=== PATIENT | female | born 1965 | race Caucasian/White ===

== ENCOUNTER 2022-03-15 11:04 | Outpatient (REF) | payer BC, SELFPAY ==
--- NOTE | 2022-03-15 09:45 | PAPFT_PTH ---
PATIENT: Kaia Isaac [id number] AGE/SX: 56/F ROOM: RE03/15/[address]: Marlyn Sterling : 1965 BED: DIS: 03/15/2022 SPEC #: [id number] RECD: 03/18/22 12:27 STATUS: GARCIA MOLINA #: [id number] GLENNA: 03/15/22 09:[address]: Marlyn Sterling DEPT: [facility] Cytology RECD BY: Virginia Coreas ENTERED: 03/18/22 12:28 SP TYPE: PAPFT OTHR DR: Milla London Tissues: 1 - CX/ENDOCX FOR PAP SMEARS Procedures: PAP THIN PREP/UVM Screening HPV DNA PROBE Comments: [id number]
[2022-03-15 19:32] LABS: ALT 38 U/L (14-59); AST 25 U/L (15-37); Albumin 3.8 g/dL (3.4-5.0); Alkaline Phosphatase 101 U/L (46-116); Anion Gap 5.8 mmol/L (3-11); BUN 14 mg/dL (7-18); Bilirubin, Total 0.4 mg/dL (0.2-1.0); CO2 31.2 mmol/L (21.0-32.0); CREATININE 0.6 mg/dL (0.55-1.02); Calcium 8.6 mg/dL (8.5-10.1); Chloride 106 mmol/L (98-107); Cholesterol 119 mg/dL (<200); Glucose 88 mg/dL (74-106); HDL Cholesterol 88 mg/dL (40-60); Sodium 143 mmol/L (136-145); Total Protein 6.5 g/dL (6.4-8.2)
[2022-03-15 19:46] LABS: Triglyceride < 25 mg/dL (<150)
== END 2022-03-15 11:05 | disposition home or self-care (01) ==
LOC: NCHCN 11:04
PROVIDERS: PCP Family Medicine; Visit Provider Physician Assistant
DX: Z00.00 Encounter for general adult medical examination without abnormal findings (principal); Z13.1 Encounter for screening for diabetes mellitus; Z13.220 Encounter for screening for lipoid disorders; Z12.4 Encounter for screening for malignant neoplasm of cervix; Z11.51 Encounter for screening for human papillomavirus (HPV)
CPT/HCPCS: 80053; 80061; 88142; 87624

== ENCOUNTER → 2022-05-08 02:04 | Outpatient (CLI) | payer BC, SELFPAY ==
--- NOTE | 2022-05-08 17:00 | DI.MAMMO_ITS ---
Exam(s) MAMMO SCREENING EXAM: MAMMO SCREENING CLINICAL HISTORY: SCREENING, Z12.39; FAM H/O BREAST CA IN MOTHER; H/O DENSE BREASTS. TECHNIQUE: Bilateral full field digital CC and MLO mammographic images were obtained with 3D tomosyn thesis and utilizing computer aided detection (CAD). COMPARISON: Prior outside mammograms were reviewed, the most recent being November 2020. FINDINGS: Fibroglandular tissue pattern is again noted be dense, this somewhat decreasing the sensitivity of th e mammogram for finding in underlying lesions. Multiple benign-appearing microcalcifications noted bilaterally. There are no new spiculated masses nor malignant appearing microcalcification groups. There is no significant architectural distortion nor skin thickening-retraction. IMPRESSION: Dense bilateral fibroglandular tissue. No obvious radiographic evidence malignancy. BI-RADS Category 2 - Benign Findings Breast Density - Category C - Heterogeneously dense Breast density Category C or D implies that the patient has dense breast tissue. Dense breast tissue can make it harder to find cancer on a mammogram. Dense breast tissue is also associated with an incr eased risk of breast cancer. This information about the result of the mammogram report was provided to the patient to raise their awareness. Use this report when you speak with the patient about their risks for breast cancer, which includes their family history. At that time, you may recommend additional screening tests (Ultrasoun d or MRI) as these tests may add significant information. A negative radiographic report should not delay biopsy if a dominant or clinically suspicious mass is present. Up to ten percent of cancers are not identified on mammography. A negative report may reinforce clinical impression. Adenosis and dense breasts may obscure an underlying neoplasm. False positive reports average 6 to 10%. Patient will receive a letter notifying them of these results.
== END ==
PROVIDERS: PCP Family Medicine; Visit Provider Physician Assistant
DX: Z12.31 Encounter for screening mammogram for malignant neoplasm of breast (principal); Z80.3 Family history of malignant neoplasm of breast; R92.0 Mammographic microcalcification found on diagnostic imaging of breast
CPT/HCPCS: 77063; 77067

== ENCOUNTER 2023-05-23 11:15 | Outpatient (REF) | payer BC, SELFPAY ==
--- OUTSIDE RECORDS SUMMARY | 2023-05-23 11:30 | XMS_ITS | Continuity of Care Document ---
Author Name [facility] Address [address] [place] [address] Organization [facility] Address [address] [place] [address] Care Team Providers Care Line Leader Name Role Phone Milla London Primary Care Physician [phone] Estephania Gallo Attending Physician [phone] Allergies, Adverse Reactions, Alerts Allergen Type Severity Reaction Last Updated Verified Status erythromycin base Allergy rash April 28, 2017 Y Active Medications Active Medications Medication Start Date Status [place] April 28, 2017 Active Problem List No problem information available. Procedures Procedure Date Status DIAGNOSTIC COLONOSCOPY April 28, 2017 active Digital Mammo Bilat Screening April 08, 2017 co mpleted Relevant Diagnostic Tests and/or Laboratory Data Laboratory Results Test Date/Time Result Interp. Ref. Range Result Co mment White Blood Count January 23, 2017 12:00pm 3.74 1000/mm3 Low 4.8-10.8 Red Blood Count January 23, 2017 12:00pm 4.57 M/mm3 4.20-5.40 Hemoglobin January 23, 2017 12:00pm 13.9 g/dL 12.0-16.0 Hematocrit January 23, 2017 12:00pm 42.7 % 37-47 Mean Corpuscular Volume January 23, 2017 12:00pm 93.4 fL 81.0-99.0 Mean Corpuscular Hemoglobin January 23, 2017 12:00pm 30.4 pg 27-31 Mean Corpuscular Hemoglobin Concent January 23, 2017 12:00pm 32.6 g/dL Low 33-37 Red Cell Distribution Width January 23, 2017 12:00pm 12.8 % 11.5-14.5 Platelet Count January 23, 2017 12:00pm 241 1000/mm3 140-440 Mean Platelet Volume January 23, 2017 12:00pm 10.5 fL High 7.4-10.4 Sodium Level January 23, 2017 12:00pm 143 mmol/L 137-145 Potassium Level January 23, 2017 12:00pm 4.1 mmol/L 3.6-5.0 Chloride Level January 23, 2017 12:00pm 104 mmol/L 98-107 Carbon Dioxide Level January 23, 2017 12:00pm 28 mmol/L 22-30 Anion Gap January 23, 2017 12:00pm 11 7-16 Blood Urea Nitrogen January 23, 2017 12:00pm 10 mg/dL 7-17 Creatinine January 23, 2017 12:00pm 0.6 mg/dL 0.52-1.04 Glomerular Filtration Rate Calc January 23, 2017 12:00pm > 60 mL/min Glucose Level January 23, 2017 12:00pm 83 mg/dL 70-100 Calcium Level January 23, 2017 12:00pm 8.8 mg/dL 8.4-10.2 Calcium Adjusted for Albumin January 23, 2017 12:00pm 8.9 mg/dL 8.4-10.2 Total Bilirubin January 23, 2017 12:00pm 0.6 mg/dL 0.2-1.3 Aspartate Amino Transf (AST/SGOT) January 23, 2017 12:00pm 23 U/L 14-36 Alanine Aminotransferase (ALT/SGPT) January 23, 2017 12:00pm 31 U/L 9-52 Total Protein January 23, 2017 12:00pm 7.1 g/dL 6.3-8.2 Albumin January 23, 2017 12:00pm 4.2 g/dL 3.5-5.0 Cholesterol Level January 23, 2017 12:00pm 100 mg/dL 59-199 HDL Cholesterol January 23, 2017 12:00pm 58 mg/dL 40-60 The National Cholesterol Education Program (NCEP) has set the following guidelines (reference values) for cholesterol, HDL: Low HDL: <40 mg/dL Normal: 40-60 mg/dL Desirable: >60 mg/dL LDL Cholesterol January 23, 2017 12:00pm 27.4 mg/dL 0-129 VLDL Cholesterol January 23, 2017 12:00pm 14.6 mg/dL 0-32 Cholesterol/HDL Ratio January 23, 2017 12:00pm 1.72 0-3.9 Triglycerides Level January 23, 2017 12:00pm 73 mg/dL 0-149 Alkaline Phosphatase January 23, 2017 12:00pm 74 U/L 38-126 Hepatitis C Antibody January 23, 2017 12:00pm Negative Reference Range: Negative Test Performed by: [place] [address] Management Aide: Glenn Rosario MD , Ph D Advance Directives Advance Directive Response Recorded Date/ Time Do we have a copy on file here at [facility]? No April 08, 2017 9:35am Does patient have an Advanced Directive? No September 25, 2011 9:30am Pt has a Living Will? No September 042010 9:30am Pt has a Power of Induction Coordination Engineer? No Curt [email or web address] 9:30am Hospital Discharge Instructions No known hospital discharge instructions. Hospital Discharge Medications Medication Dose Units Route Sig Qty Days Order Date Status Ins tructions [place] April 28, 2017 Active Encounters Encounter Facility Location Admit/Visit Date Discharge/Departure Date Attending Provider Departed Referred [facility] August 01, 2017 3:39pm August 01, 2017 3:40pm Estephania Gallo Departed Surgical Day Care [facility] Surgical Services April 28, 2017 9:00am April 28, 2017 12:14pm Karely Davis Departed Clinical [facility] DI Walk In [place] April 08, 2017 9:32am April 08, 2017 9:33am Karen Barreto Departed Referred [facility] January 23, 2017 2:25pm January 23, 2017 2:26pm Karen Barreto Registered Referred [facility] Pathology December 17, 2016 7:45pm Donavan Garcia Functional Status No known functional status. Immunizations No known immunizations. Payers Payer Name Policy Type Covered Alliance Party Covered Alliance Party Id Relationship Subscriber Subscriber Id [facility] Commercial CARMELA GENAO [id number] Self/Same as Patient CARMELA GENAO [id number] [facility] Commercial CARMELA GENAO [id number] Self/Same as Patient CARMELA GENAO [id number] SELF PAY Personal Plan of Care No Known Plan of Care Information Social History Query Response Start Date Stop Date Smoking Status Never smoker Vital Signs Vital Reading Result Reference Range Collection Date/Time Height 5 ft 4 in April 28, 2017 1 1:04am Weight 48.534 kg April 28, 2017 1 1:04am Temperature 98.0 F 97.6 F-99.6 F April 28, 2017 11:04am Pulse 59 BPM 60-100 April 28, 2017 1 2:12pm Respiration 16 RPM -April 28, 2017 1 2:12pm Pulse Oximetry 95 % 95-100 April 28, 2017 12:12pm Blood Pressure Systolic 121 100-140 April 28, 2017 12:12pm Blood Pressure Diastolic 88 50-85 Sunday 2016 12:12pm Body Mass Index 18.3 April 28 7 11:04am
--- OUTSIDE RECORDS SUMMARY | 2023-05-23 11:30 | XMS_ITS | Continuity of Care Document ---
Author Name [facility] Address [address] [place] [address] Organization [facility] Address [address] [place] [address] Care Team Providers Care Rubber Goods Assembler Name Role Phone Karely Davis Attending Physician Milla London Primary Care Physician Allergies, Adverse Reactions, Alerts Allergen Type Severity Reaction Last Updated Verified Status erythromycin base Allergy rash April 28, 2017 Y Active Medications Active Medications Medication Start Date Status [place] April 28, 2017 Active Problem List No problem information available. Procedures Procedure Date Status Provider(s) Colonoscopy in OPD - screen (Not Applicable) April 28, 2017 completed Karely Davis Digital Mammo Bilat Screening April 08, 2017 completed Relevant Diagnostic Tests and/or Laboratory Data Laboratory [...] Reference Range: Negative Test Performed by: [place] [address] Assistant To The Ceo: Glenn Rosario MD , Ph D Advance Directives Advance Directive Response Recorded Date/ Time Do we have a copy on file here at [facility]? No April 08, 2017 9:35am Does patient have an Advanced Directive? No September 25, 2011 9:30am Pt has a Living Will? No September 042010 9:30am Pt has a Power of Denture Contour Wire Specialist? No Curt [email or web address] 9:30am Chief Complaint and Reason for Visit Encounter Admit Date Chief Complaint Reason for V isit Departed Surgical Day Care April 28, 2017 9:00am Encounter for screening for malignant neoplasm of Hospital Discharge Instructions No known hospital discharge instructions. Hospital Discharge Medications Medication Dose Units Route Sig Qty Days Order Date Status Ins tructions [place] April 28, 2017 Active Encounters Encounter Facility Location Admit/Visit Date Discharge/Departure Date Attending Provider Departed Surgical Day Care [facility] Surgical Services April 28, 2017 9:00am April 28, 2017 12:14pm Karely Davis Departed Clinical [facility] DI Walk In [place] April 08, 2017 9:32am April 08, 2017 9:33am Karen Barreto Departed Referred [facility] January 23, 2017 2:25pm January 23, 2017 2:26pm Karen Barreto Registered Referred [facility] Pathology December 17, 2016 7:45pm Donavan Garcia Functional Status No known functional status. Immunizations No known immunizations. Payers Payer Name Policy Type Covered Republican Covered Republican Id Relationship Subscriber Subscriber Id [facility] OUT [facility] Commercial CARMELA GENAO [id number] 71 Self/Same as Patient CARMELA GENAO [id number] [facility] CARMELA GENAO [id number] Self/Same as Patient CARMELA GENAO [id number] SELF PAY Personal Plan of Care No [...] 2017 12:12pm Blood Pressure Diastolic 88 50-85 Apr 12:12pm Body Mass Index 18.3 April 28 7 11:04am
--- OUTSIDE RECORDS SUMMARY | 2023-05-23 11:30 | XMS_ITS | Continuity of Care Document ---
Author Name [facility] Address [address] [place] [address] Organization [facility] Address [address] [place] [address] Care Team Providers Care Sql Programmer Analyst Name Role Phone Milla London Primary Care Physician Estephania Gallo Attending Physician Allergies, Adverse Reactions, Alerts Allergen Type Severity Reaction Last Updated Verified Status erythromycin base Allergy rash April 28, 2017 Y Active Medications Active Medications Medication Start Date Status [place] April 28, 2017 Active Problem List No [...] Reference Range: Negative Test Performed by: [place] [address] Special Agent Fbi: Glenn Rosario MD , Ph D Advance Directives Advance Directive Response Recorded Date/ Time Do we have a copy on file here at [facility]? No April 08, 2017 9:35am Does patient have an Advanced Directive? No September 25, 2011 9:30am Pt has a Living Will? No September 042010 9:30am Pt has a Power of Director Fundraising? No Curt [email or web address] 9:30am Hospital Discharge Instructions No known hospital discharge instructions. Hospital Discharge Medications Medication Dose Units Route Sig Qty Days Order Date Status Ins tructions [place] April 28, 2017 Active Encounters Encounter Facility Location Admit/Visit Date Discharge/Departure Date Attending Provider Departed Referred [facility] August 01, 2017 3:39pm August 01, 2017 3:40pm Estephania Gallo Departed Surgical Day Care [facility] Surgical Services April 28, 2017 9:00am April 28, 2017 12:14pm Karely Davis Departed Clinical [facility] DI Walk In [place] April 08, 2017 9:32am April 08, 2017 9:33am Karen Barreto Departed Referred [facility] January 23, 2017 2:25pm January 23, 2017 2:26pm Karen Barreto Registered Referred [facility] Pathology December 17, 2016 7:45pm Donavan Garcia Functional Status No known functional status. Immunizations No known immunizations. Payers Payer Name Policy Type Covered Republican Covered Republican Id Relationship Subscriber Subscriber Id [facility] OUT [facility] Commercial CARMELA GENAO [id number] 71 Self/Same as Patient CARMELA GENAO [id number] [facility] Commercial CARMELA GENAO [id number] Self/Same as Patient CARMELA GENAO [id number] SELF PAY Personal Plan of Care No [...]
--- OUTSIDE RECORDS SUMMARY | 2023-05-23 11:30 | XMS_ITS | Continuity of Care Document ---
Author Name [facility] Address [address] [place] [address] Organization [facility] Address [address] [place] [address] Care Team Providers Care Electrologist Name Role Phone Karen Barreto Primary Care Physician [phone] Karen Barreto Attending Physician Allergies, Adverse Reactions, Alerts No allergy information available. Medications No medication information available. Problem List No problem information available. Procedures No known history of procedures. Relevant Diagnostic Tests and/or Laboratory Data Laboratory [...] Reference Range: Negative Test Performed by: [place] [address] [employer]otions Firm Accounts Manager: Glenn Rosario MD , Ph D Advance Directives Advance Directive Response Recorded Date/ Time Does patient have an Advanced Directive? No September 25, 2011 9:30am Pt has a Living Will? No September 042010 9:30am Pt has a Power of Children'S Tutor Nursery? No Curt [email or web address] 9:30am Hospital Discharge Instructions No known hospital discharge instructions. Encounters Encounter Facility Location Admit/Visit Date Discharge/Departure Date Attending Provider Departed Referred [facility] January 23, 2017 2:25pm January 23, 2017 2:26pm Karen Barreto Registered Referred [facility] Pathology December 17, 2016 7:45pm Donavan Garcia Functional Status No known functional status. Immunizations No known immunizations. Payers Payer Name Policy Type Covered Alliance Party Covered Alliance Party Id Relationship Subscriber Subscriber Id [place] [employer] OUT [facility] [employer] [place] [employer] CARMELA GENAO [id number] Self/Same as Patient CARMELA GENAO [id number] SELF PAY Personal Plan of Care No Known Plan of Care Information Social History No known social history. Vital Signs No known vital signs results.
--- OUTSIDE RECORDS SUMMARY | 2023-05-23 11:30 | XMS_ITS | Continuity of Care Document ---
Author Name Unknown Address [address] [place] [address] Phone [facility] Address [address] [place] [address] Phone Care Team Providers Care Room Service Bellhop Name Role Phone Lavelle Gregory Primary Care Provider [phone] Lavelle Gregory Attending Provider [phone] Allergies, Adverse Reactions, Alerts Allergen Type Severity Reaction Last Updated Verified Status erythromycin base Adverse Reaction Unknown unknown N ovember 2019 1:07pm Yes Active Medications Medication Status Dose Units Route Directions Qty Days St art Date End Date Instructions Clobetasol Active 1 APPLIC TOP TWICE A DAY 2019 8:24am for two weeks Clobetasol Disconti nued 1 APPLIC TOP TWICE A DAY April 27, 2019 4:27pm Octobe r 2018 9:16am for two weeks Clobetasol Disconti nued 1 APPLIC TOP TWICE A DAY August 11, 2019 9:13am April 04, 2020 8:25am for two weeks Shingrix gE Antigen Component (varicella-zo ster gE vac,2 of 2) 50 mcg Disconti nued 50 MCG IM ONCE August 11, 2019 8:39am Octobe r 2018 10:40a m Shingrix Adjuvant Component-PF (adjuvant AS01B (PF)vial 1 of 2) Disconti nued 0.5 ML IM ONCE 0.5 August 11, 2019 8:39am Octobe r 2018 10:40a m Cholecalcifer ol (Vitamin D3) Active 50 MCG PO DAILY 2019 1:10pm Problems Active Problems Medical Problem Onset Date Status Urinary incontinence July 07, 2018 Active Lichen sclerosus et atrophicus August 01 017 Active Inactive/Resolved Problems Medical Problem Onset Date Status Right lower quadrant abdominal pain January 24, 2015 Resolved Excessive bleeding in premenopausal period Novem 2014 Resolved Uterine leiomyoma October 18, 2014 Resolved Cyst of ovary October 18, 2014 Resolved Procedures Procedure Date Performed Status Mike Mammo Bilat Scrn Panel October 06, 2019 8 :00am completed Relevant Diagnostic Tests and/or Laboratory Data Laboratory Results Test Date/Time Result Interpretation Reference Range Result Comment Performing Site Sodium Level September 12, 2020 1:48pm 142 mmol/L 137-145 MAIN LAB, [address] [place] [address] Potassium Level September 12, 2020 1:48pm 4.1 mmol/L 3.6-5.0 MAIN LAB, [address] [place] [address] 80067 Chloride Level September 12, 2020 1:48pm 105 mmol/L 98-107 MAIN LAB, [address] [place] [address] 49715 Carbon Dioxide Level September 12, 2020 1:48pm 31 mmol/L 22-30 MAIN LAB, [address] [place] [address] 19696 Anion Gap September 12, 2020 1:48pm 6 7-16 MAIN LAB, [address] [place] [address] 25782 Blood Urea Nitrogen September 12, 2020 1:48pm 16 mg/dL 7-17 MAIN LAB, [address] [place] [address] 77011 Creatinine September 12, 2020 1:48pm 0.60 mg/dL 0.52-1.04 MAIN LAB, [address] [place] [address] 55182 Glomerular Filtration Rate Calc September 12, 2020 1:48pm > 60 mL/min >60.0 MAIN LAB, [address] [place] [address] 31059 Glucose Level September 12, 2020 1:48pm 79 mg/dL 70-100 MAIN LAB, [address] [place] [address] 76149 Calcium Level September 12, 2020 1:48pm 9.4 mg/dL 8.4-10.2 MAIN LAB, [address] [place] [address] 58416 Calcium Adjusted for Albumin September 12, 2020 1:48pm 9.3 mg/dL 8.4-10.2 MAIN LAB, [address] [place] [address] 52185 Total Bilirubin September 12, 2020 1:48pm 0.5 mg/dL 0.2-1.3 MAIN LAB, [address] [place] [address] 66859 Aspartate Amino Transf (AST/SGOT) September 12, 2020 1:48pm 28 U/L 14-36 MAIN LAB, [address] [place] [address] 84688 Alanine Aminotransferase (ALT/SGPT) September 12, 2020 1:48pm 19 U/L <35 As of 03/03/20, the Reference Range for ALT/SGPT for adult patients has been updated. The Reference Range for ALT/SGPT has not been established for patients <18 years of age. MAIN LAB, [address] [place] [address] 36611 Total Protein September 12, 2020 1:48pm 6.9 g/dL 6.3-8.2 MAIN LAB, [address] [place] [address] 99482 Albumin September 12, 2020 1:48pm 4.4 g/dL 3.5-5.0 MAIN LAB, [address] [place] [address] 06497 Cholesterol Level September 12, 2020 1:48pm 108 mg/dL 59-199 MAIN LAB, [address] [place] [address] 02402 HDL Cholesterol September 12, 2020 1:48pm 78 mg/dL 40-60 The National Cholesterol Education Program (NCEP) has set the following guidelines (reference values) for cholesterol, HDL:Low HDL: <40 mg/dLNormal: 40-60 mg/dLDesirab le: >60 mg/dL MAIN LAB, [address] [place] [address] 69263 LDL Cholesterol September 12, 2020 1:48pm 7.4 mg/dL 0-129 MAIN LAB, [address] [place] [address] 36583 VLDL Cholesterol September 12, 2020 1:48pm 22.6 mg/dL 0-32 MAIN LAB, [address] [place] [address] [place] [address] Cholesterol/HDL Ratio September 12, 2020 1:48pm 1.38 0-3.9 MAIN LAB, [address] [facility] [address] Triglycerides Level September 12, 2020 1:48pm 113 mg/dL 0-149 MAIN LAB, [address] [place] [address] 49845 Alkaline Phosphatase September 12, 2020 1:48pm 93 U/L 38-126 MAIN LAB, [address] [place] [address] Diagnostic Imaging Reports Report Dictated Date/Time Dictated By Status Radiology Report October 06, 2019 8:29am Amie Owens MD completed MAMMOGRAPHY REPORT PATIENT NAME: CARMELA GENAO [id number] DATE OF : 1965 ATTENDING/ER PHYSICIAN: Lavelle Gregory MD ER/ATTENDING PHYSICIAN: PRIMARY CARE PHYS: Lavelle Gregory MD ADMITTING PHYSICIAN: CONSULTING PHYSICIAN: PROCEDURE DATE: 10/06/19 REPORT STATUS: Signed DICTATING PHYSICIAN: Amie Owens MD REASON FOR EXAM: screening breast cancer. avg risk PROCEDURE: Mike Mammo Bilat Scrn Panel CLINICAL HISTORY: 54 years-old woman comes in for her annual screening exam. COMPARISON: 2017, 2016. TECHNIQUE: Digital conventional 2-D and 3-D tomosynthesis views were obtained. The findings were confirmed with computer-aided detection (CAD). FINDINGS: The breast tissue is heterogeneously dense which may lower the sensitivity of mammography. Benign appearing calcifications are present. There are no suspicious microcalcifications in either breast. There are no suspicious masses in either breast. CONCLUSION: 1. No suspicious findings. In the absence of new clinical symptoms, screening mammography is recommended in one year. BI-RADS 2. Benign finding(s). Patients with a negative mammogram will be sent a letter with results. If further evaluation is required, the radiology department will notify the patient. If a biopsy is recommended, the patient will be informed and the radiology department will inform the referring provider's office. If a 6 months follow-up is recommended, the patient will be informed -- additional order will be required from the provider's office. The frequency of follow-up appointments was discussed with a patient by the mri special procedures technologist as part of the exam. The patient will receive a reminder phone call one week prior to her next screening appointment. In accordance with [place] Senate Bill 157 the following statement applies: Your mammogram indicates that you have dense breast tissue. Dense breast tissue is a normal finding that is present in about 40 percent of women. Dense breast tissue can make it more difficult to detect cancer on a mammogram and may be associated with a slightly increased risk for breast cancer. This information is provided to raise your awareness of the impact of breast density on cancer detection and to encourage you to discuss this issue, as well as other breast cancer risk factors, with your health care provider as you decide together which screening options may be right for you. dd: 10/06/19828 <Electronically signed by Amie Owens MD in OV> 10/06/19829 Advance Directives Advance Directive Response Recorded Date/ Time Does patient have an Advanced Directive? No September 25, 2011 9:30am Do we have a copy on file here at [facility]? No April 08, 2017 8:35am Pt has a Living Will? No September 042010 9:30am Do we have a copy on file here at [facility]? No April 08, 2017 8:35am Pt has a Power of Certified Professional Coder? No Curt matias 2010 9:30am Do we have a copy on file here at [facility]? No April 08, 2017 8:35am Chief Complaint and Reason for Visit Chief Complaint Essential hypertensi on Screening for breast cancer [employer] annual exam Physical/BUMPED FROM 08/16 Encounters Encounter Location(s) Arrival/Admit Date Discharge/Depart Date Provider(s) Departed Clinical [facility] October 06, 2019 7:45am October 06, 2019 7:46am Lavelle Gregory MD Departed Physician[facility] October 19, 2019 10:16am October 19, 2019 10:41am Donavan Garcia MD Departed Physician[facility] October 20, 2019 12:00am October 20, 2019 12:00am Conversion Medent Departed Physician[facility]Prov [facility] September 12, 2020 12:46pm September 12, 2020 1:52pm Lavelle Gregory MD Departed Referred [facility] September 12, 2020 1:34pm September 12, 2020 1:35pm Lavelle Gregory MD Assessments No Assessments Information Available Family History Relationship Condition Age at Onset Recorded Date/T nelli Parent Dementia Unknown Cerebrovascular accident (CVA) Unknown Not Specified Malignant neoplasm of uterus Unknown Peripheral vascular disease Unknown Parent Arthritis Unknown Osteoporosis Unknown Malignant neoplasm of breast 78 Functional Status Observation Response Date Recorded Ambulation Ability Independent September 1:14pm Ambulation Ability Independent August 11, 2019 9:20am Goals Goals may be documented in an alternate section. Immunizations Immunization Event Date Not Given Reason Dose Number Wire Dropper Lot Number Vaccine Information Statement (VIS) Detail Influenza Split Virus 3YR Older October 06, 2007 Tdap October 29, 2013 Zoster (shingles) Recomb Vac (Shingrix) July 07, 2018 Zoster (shingles) Recomb Vac (Shingrix) August 11, 2019 [id number] Mental Status No Mental Status Information Available Medical Equipment No Medical Equipment Information available Insurance Providers Guarantor CARMELA GENAO Address [address] [place] [id number] Contact Info. Home Phone: Payer Policy Id Coverage Id Subscriber's Name Subscriber Id Effective Date Expiration Date [employer] [id number] CARMELA GENAO [id number] [facility] OUT OF STATE [id number] 1 CARMELA GENAO [id number] [facility] [id number] CARMELA GENAO [id number] 2014 SELF PAY Self N/A Plan of Treatment Very very healthy 55-year-old female here for annual physical exam. No health concerns or questions. I did review her Pap from December 2016 which does not appear to have cotesting but I am unable to log into the [employer] system to verify. Regardless, she will follow-up with [facility]. Normal Manager Er exam. Follow for routine care. Future Tests Future scheduled test information is unavailable Pending Tests Pending diagnostic test information is unavailable Future Visits Future appointment information is unavailable Referrals to Other Providers Referral information is unavailable Future Procedures Future procedure information is unavailable Future Medications Future medication information is unavailable Patient Instructions Patient instructions are unavailable Social History Smoking Status Status Date of Observation Never smoked tobacco (finding) September 12, 2020 1:19pm Observation Status Observation Response Date of Response Alcohol Use No April 28, 2017 9:05am Substance/Street Drug Use No April 042016 9:05am Substance Use Treatment No April 9:05am substance use type does not use September 1:14pm Smoking Status Never smoker September 12 1:19pm Assigned Sex Female Vital Signs Vital Reading Result Reference Range Collection Date/Time Height 64 [in_i] October 19, 2019 10:21am Weight 48.30 kg October 19, 2019 10:21am Heart Rate 64 /min 60-100 October 19, 2019 10:21am Respiratory rate 16 /min 12-24 October 192018 10:21am BP Systolic 130 mm[Hg] 100-140 October 19, 2019 10:21am BP Diastolic 74 mm[Hg] 50-85 October 19, 2019 10:21am BMI (Body Mass Index) 18.3 kg/m2 [facility] 2018 10:21am Height 64 [in_i] September 12, 2020 1:03pm Weight 46.26 kg September 12, 2020 1:03pm Body Temperature 98.9 [degF] 97.6-99.6 September 122019 1:03pm Heart Rate 68 /min 60-100 September 12, 2020 1:03pm Respiratory rate 16 /min 12-24 September 122019 1:03pm BP Systolic 126 mm[Hg] 100-140 September 12, 2020 1:03pm BP Diastolic 78 mm[Hg] 50-85 September 12, 2020 1:03pm BMI (Body Mass Index) 17.5 kg/m2 [facility] 2019 1:03pm
--- OUTSIDE RECORDS SUMMARY | 2023-05-23 11:30 | XMS_ITS | Continuity of Care Document ---
Author Name [facility] Address [address] [place] [address] Organization [facility] Address [address] [place] [address] Care Team Providers Care Clinical Review Nurse Name Role Phone Lavelle Gregory Primary Care Physician Lavelle Gregory Attending Physician [phone] Allergies, Adverse Reactions, Alerts Allergen Type Severity Reaction Last Updated Verified Status erythromycin base Adverse Reaction Unknown unknown N ovember 2019 Y Active Medications Active Medications Medication Dose Units Route Sig Qty Start Date Status In structions Clobetasol 1 APPLIC TOPICALLY TWICE A DAY PRN For rash April 04, 2020 Active for two weeks Cholecalciferol (Vitamin D3) 50 MCG ORAL DAILY September 12, 2020 Active Discontinued Medications Medication Dose Units Route Sig Qty Start Date Discontinued Date Status Instructions Clobetasol 1 APPLIC TOPICALLY TWICE A DAY April 27, 2019 August 11, 2019 Discontin ued for two weeks Clobetasol 1 APPLIC TOPICALLY TWICE A DAY PRN August 11, 2019 April 04, 2020 Discontin ued for two weeks Shingrix gE Antigen Component (varicella- zoster gE vac,2 of 2) 50 mcg intramuscul ar suspension 50 MCG INTRAMUSC ULAR ONCE 1 August 11, 2019 August 11, 2019 Discontin ued Shingrix Adjuvant Component-P F (adjuvant AS01B (PF)vial 1 of 2) 0.5 ML INTRAMUSC ULAR ONCE 0.5 August 11, 2019 August 11, 2019 Discontin ued Problem List Active Problems Medical Problem Onset Date Status Urinary incontinence July 07, 2018 Lichen sclerosus et atrophicus August 01 7 Inactive/Resolved Problems Medical Problem Onset Date Status Right lower quadrant abdominal pain January 24 Resolved Excessive bleeding in premenopausal period Novem 2014 Resolved Uterine leiomyoma October 18, 2014 Resolved Cyst of ovary October 18, 2014 Resolved Procedures Procedure Date Status Mike Mammo Bilat Scrn Panel October 06, 2019 com pleted Relevant Diagnostic Tests and/or Laboratory Data Laboratory Results Test Date/Time Result Interp. Ref. Range Result Co mment Sodium Level September 12, 2020 1:48pm 142 mmol/L 137-145 Potassium Level September 12, 2020 1:48pm 4.1 mmol/L 3.6-5.0 Chloride Level September 12, 2020 1:48pm 105 mmol/L 98-107 Carbon Dioxide Level September 12, 2020 1:48pm 31 mmol/L High 22-30 Anion Gap September 12, 2020 1:48pm 6 Low 7-16 Blood Urea Nitrogen September 12, 2020 1:48pm 16 mg/dL 7-17 Creatinine September 12, 2020 1:48pm 0.60 mg/dL 0.52-1.04 Glomerular Filtration Rate Calc September 12, 2020 1:48pm > 60 mL/min 60.0- Glucose Level September 12, 2020 1:48pm 79 mg/dL 70-100 Calcium Level September 12, 2020 1:48pm 9.4 mg/dL 8.4-10.2 Calcium Adjusted for Albumin September 12, 2020 1:48pm 9.3 mg/dL 8.4-10.2 Total Bilirubin September 12, 2020 1:48pm 0.5 mg/dL 0.2-1.3 Aspartate Amino Transf (AST/SGOT) September 12, 2020 1:48pm 28 U/L 14-36 Alanine Aminotransferase (ALT/SGPT) September 12, 2020 1:48pm 19 U/L As of 03/03/20, th e Reference Range for ALT/SGPT for adult patients has been updated. The Reference Range for ALT/SGPT has not been established for patients <18 years of age. Total Protein September 12, 2020 1:48pm 6.9 g/dL 6.3-8.2 Albumin September 12, 2020 1:48pm 4.4 g/dL 3.5-5.0 Cholesterol Level September 12, 2020 1:48pm 108 mg/dL 59-199 HDL Cholesterol September 12, 2020 1:48pm 78 mg/dL High 40-60 The National Cholesterol Education Program (NCEP) has set the following guidelines (reference values) for cholesterol, HDL: Low HDL: <40 mg/dL Normal: 40-60 mg/dL Desirable: >60 mg/dL LDL Cholesterol September 12, 2020 1:48pm 7.4 mg/dL 0-129 VLDL Cholesterol September 12, 2020 1:48pm 22.6 mg/dL 0-32 Cholesterol/HDL Ratio September 12, 2020 1:48pm 1.38 0-3.9 Triglycerides Level September 12, 2020 1:48pm 113 mg/dL 0-149 Alkaline Phosphatase September 12, 2020 1:48pm 93 U/L 38-126 Hospital Discharge Instructions No known hospital discharge instructions. Hospital Discharge Medications Medication Dose Units Route Sig Qty Days Order Date Status Instructions Clobetasol 1 APPLIC TOPICALLY TWICE A DAY PRN For rash April 04, 2020 Active for two weeks Clobetasol 1 APPLIC TOPICALLY TWICE A DAY April 27, 2019 Discontinue d for two weeks Clobetasol 1 APPLIC TOPICALLY TWICE A DAY PRN August 11, 2019 Discontinue d for two weeks Shingrix gE Antigen Component (varicella-zost er gE vac,2 of 2) 50 mcg 50 MCG INTRAMUSCU LAR ONCE 1 August 11, 2019 Discontinue d Shingrix Adjuvant Component-PF (adjuvant AS01B (PF)vial 1 of 2) 0.5 ML INTRAMUSCU LAR ONCE 0.5 August 11, 2019 Discontinue d Cholecalciferol (Vitamin D3) 50 MCG ORAL DAILY 2019 Active Encounters Encounter Facility Location Admit/Visit Date Discharge/Departure Date Attending Provider Departed Referred [facility] September 12, 2020 1:34pm September 12, 2020 1:35pm Lavelle Gregory Departed Physician/P rovider Office Visit [facility] September 12, 2020 12:46pm September 12, 2020 1:52pm Lavelle Gregory Departed Physician/P rovider Office Visit [facility]COHOL COUNSELOR October 20, 2019 12:00am October 20, 2019 Gato Oshea Departed Physician/P rovider Office Visit [facility] DRUG AND ALCOHOL COUNSELOR October 19, 2019 10:16am October 19, 2019 10:41am Donavan Garcia Departed Clinical [facility] October 06, 2019 7:45am October 06, 2019 7:46am Lavelle Gregory Functional Status Query Response Date Recorded Comment Ambulation Ability Independent September 12, 2020 1:14 pm Immunizations Immunization Name Date Given Type Influenza Split Virus 3YR Older October 06, 2007 Historical Tdap October 29, 2013 Historical Zoster (shingles) Recomb Vac (Shingrix) 2017 Historical Zoster (shingles) Recomb Vac (Shingrix) August 11, 2019 Administered Plan of Care No Known Plan of Care Information Social History Query Response Date Recorded Comment Alcohol Use No April 28, 2017 10:05am Smoking Status Never smoker September 12, 2020 1:19pm Substance Use Treatment No April 28, 2017 10: 05am Substance/Street Drug Use No April 28, 2017 1 0:05am substance use type does not use September 12, 2020 1:14 pm Query Response Start Date Stop Date Smoking Status Never smoker Vital Signs Vital Reading Result Reference Range Collection Date/Time Height 5 ft 4 in September 12 1:03pm Weight 46.266 kg September 12 1:03pm Temperature 98.9 F 97.6 F-99.6 F September 12 020 1:03pm Pulse 68 BPM 60-100 September 12 1:03pm Respiration 16 RPM 12-September 12 1:03pm Blood Pressure Systolic 126 100-140 [facility]2019 1:03pm Blood Pressure Diastolic 78 50-85 Sep [facility]2019 1:03pm Body Mass Index 17.5 September 12, 2020 1:03pm
--- OUTSIDE RECORDS SUMMARY | 2023-05-23 11:30 | XMS_ITS | Continuity of Care Document ---
Author Name Unknown Address [address] [place] [address] Phone [facility] Address [address] [place] [address] Phone Care Team Providers Care Pan Dumper Name Role Phone Lavelle Gregory Primary Care Provider Unavaila Lavelle Phan Attending Provider Unavailable Lavelle Gregory Primary Care Provider Unavaila Lavelle Phan Attending Provider Unavailable Lavelle Gregory Primary Care Provider Unavaila Lavelle Phan Attending Provider Unavailable Allergies, Adverse Reactions, Alerts Allergen Type Severity Reaction Last Updated Verified Status erythromycin base Adverse Reaction Unknown unknown O ctober 2018 Yes Active Medications Medication Status Dose Units Route Sig Qty Days Start Date End Date Instructions Echinacea Active 800 MG ORAL THREE TIMES A DAY April 27, 2019 5:28pm Cinnamon Bark Active 500 MG ORAL DAILY April 27, 2019 5:28pm Clobetasol Active 1 APPLIC TOPICALLY TWICE A DAY August 11, 2019 10:13am for two weeks Varicella-Z dyan Ge Vac,2 Of 2 Active 50 MCG INTRAMUSCULAR ONCE 1 August 11, 2019 9:39am Adjuvant As01b (Pf)Vial 1 Of 2 Active 0.5 ML INTRAMUSCULAR ONCE 0.5 August 11, 2019 9:39am Problems Active Problems Medical Problem Onset Date [...] 2014 Resolved Procedures Procedure Date Performed Status Digital Mammo Bilat Screening September 29 8 completed Relevant Diagnostic Tests and/or Laboratory Data Diagnostic Imaging Reports Report Dictated Date/Time Dictated By Status Radiology Report September 30, 2018 9:04am Amie Owens MD completed [facility] MAMMOGRAPHY REPORT PATIENT NAME: CARMELA ISAAC [id number] DATE OF : 1965 ATTENDING/ER PHYSICIAN: Lavelle Gregory MD ER/ATTENDING PHYSICIAN: PRIMARY CARE PHYS: Lavelle Gregory MD ADMITTING PHYSICIAN: CONSULTING PHYSICIAN: PROCEDURE DATE: 09/29/18 REPORT STATUS: Signed DICTATING PHYSICIAN: Amie Owens MD REASON FOR EXAM: SCREENING PROCEDURE: Digital Mammo Bilat Screening CLINICAL HISTORY: 53-year-old woman comes in for her annual screening exam. COMPARISON: 2010 and 2016. TECHNIQUE: Digital conventional 2-D views were obtained. The findings were confirmed with computer-aided detection (CAD). FINDINGS: The breast tissue is heterogeneously dense which may lower the sensitivity of mammography. Benign appearing calcifications are present. There are no suspicious microcal cifications in either breast. There are no suspicious [...] was discussed with a patient by the computed tomography technologist as part of the exam. The patient will receive a reminder phone call one week prior to her next screening appointment. In accordance with [place] Senate Bill 157 the following statement applies: [...] options may be right for you. dd: 09/30/18903 <Electronically signed by Amie Owens MD in OV> 09/30/18904 Chief Complaint and Reason for Visit Chief Complaint MAMMO Amb Documentation BLOOD DRAW Annual Physical - Adult EKG Encounters Encounter Location(s) Arrival/Admit Date Discharge /Depart Date Provider(s) Departed Clinical [facility] September 29, 2018 5:12pm September 29, 2018 5:13pm Lavelle Gregory MD Departed Physician/Provi koki Office Visit [facility] October 06, 2018 12:00am October 06, 2018 Conversion Medent Departed Physician/Provi koki Office Visit [facility] October 20, 2018 12:00am October 20, 2018 Conversion Medent Registered Inpatient [facility] April 27, 2019 5:27pm VERENA Fatimah Penaloza Registered Clinical [facility] August 11, 2019 9:03am Lavelle Gregory MD Departed Physician/Provi koki Office Visit [facility] August 11, 2019 9:39am August 11, 2019 11:31am Lavelle Gregory MD Registered Clinical [facility] August 11, 2019 11:07am Lavelle Gregory MD Assessments No Assessments Information Available Family History Relationship Condition Age at Onset Recorded Date/T nelli Parent Dementia Unknown Cerebrovascular accident (CVA) Unknown Not Specified Malignant neoplasm of uterus Unknown Peripheral vascular disease Unknown Parent Arthritis Unknown Osteoporosis Unknown Functional Status No Functional Status information available Goals No Goals Information Available Immunizations Immunization Event Date Not Given Reason Dose Number Signal Fitter Lot Number Vaccine Information Statement (VIS) Detail Influenza Split Virus 3YR Older October 06, 2007 VIS not given Tdap October 29, 2013 VIS not given Zoster (shingles) Recomb Vac (Shingrix) July 07, 2018 VIS not given Mental Status No Mental Status Information Available Medical Equipment No Medical Equipment Information available Insurance Providers Guarantor CARMELA ISAAC Address [address] [facility] [address] Contact Info. Home Phone: Payer Policy Id Coverage Id Subscriber's Name Subscriber Id Effective Date Expiration Date [email or web address] [id number] Carmela Fulleri [id number] [email or web address] OUT OF STATE [id number] 1 Carmela Isaac [id number] [employer] [place] [id number] Carmela Isaac [id number] 2014 SELF PAY Self N/A Social History Assigned Sex Female Vital Signs Vital Reading Result Reference Range Collection Date/Time Height 64 [in_i] August 11 10:02am Weight 48.98 kg August 11 10:02am Body Temperature 98.6 [degF] 97.6-99.6 August 10:02am Heart Rate 76 /min 60-100 August 11 10:02am Respiratory rate 16 /min 12-24 August 10:02am BP Systolic 124 mm[Hg] 100-140 August 11 10:02am BP Diastolic 78 mm[Hg] 50-85 August 11 10:02am BMI (Body Mass Index) 18.5 [facility]
--- OUTSIDE RECORDS SUMMARY | 2023-05-23 11:30 | XMS_ITS | Continuity of Care Document ---
Author Name Unknown Address [address] [place] [address] Phone [facility] Address [address] [place] [address] Phone Care Team Providers Care Mineral Engineer Name Role Phone Lavelle Gregory Primary Care Provider Lavelle Gregory Attending Provider [phone] Allergies, Adverse Reactions, Alerts Allergen Type Severity [...] mcg Disconti nued 50 MCG IM ONCE 1 August 11, 2019 8:39am Octobe r 2018 10:40a m Shingrix Adjuvant Component-PF (adjuvant AS01B (PF)vial 1 of 2) Disconti nued 0.5 ML IM ONCE 0.5 August 11, 2019 8:39am Octobe r 2018 10:40a m Cholecalcifer ol (Vitamin D3) Active 50 MCG PO DAILY Novem r 2019 1:10pm Problems Active Problems Medical Problem [...] Performed Status Mike Mammo Bilat Scrn Panel November 28, 2020 5 :30pm active Relevant Diagnostic Tests and/or Laboratory Data Laboratory Results Test Date/Time Result Interpretation Reference Range Result Comment Performing Site Sodium Level September 12, 2020 1:48pm 142 mmol/L 137-145 MAIN [facility], [address] [place] [address] Potassium Level September 12, 2020 1:48pm 4.1 mmol/L 3.6-5.0 MAIN [facility], [address] [place] [address] 34275 Chloride Level September 12, 2020 1:48pm 105 mmol/L 98-107 [facility], [address] [place] [address] Carbon Dioxide Level September 12, 2020 1:48pm 31 mmol/L 22-30 MAIN LAB, [address] [place] [address] Anion Gap September 12, 2020 1:48pm 6 7-16 MAIN LAB, [address] [place] [address] 45252 Blood Urea Nitrogen September 12, 2020 1:48pm 16 mg/dL 7-17 MAIN LAB, [address] [place] [address] 12362 Creatinine September 12, 2020 1:48pm 0.60 mg/dL 0.52-1.04 MAIN LAB, [address] [place] [address] 19674 Glomerular Filtration Rate Calc September 12, 2020 1:48pm > 60 mL/min >60.0 MAIN LAB, [address] [place] [address] 14084 Glucose Level September 12, 2020 1:48pm 79 mg/dL 70-100 MA[facility], [address] [place] [address] 66678 Calcium Level September 12, 2020 1:48pm 9.4 mg/dL 8.4-10.2 MAIN [facility], [address] [place] [address] 10101 Calcium Adjusted for Albumin September 12, 2020 1:48pm 9.3 mg/dL 8.4-10.2 MAIN LAB, [address] [place] [address] 49775 Total Bilirubin September 12, 2020 1:48pm 0.5 mg/dL 0.2-1.3 [facility], [address] [place] [address] 64089 Aspartate Amino Transf (AST/SGOT) September 12, 2020 1:48pm 28 U/L 14-36 MAIN LAB, [address] [place] [address] 70689 Alanine Aminotransferase (ALT/SGPT) September 12, 2020 1:48pm 19 U/L <35 As of 03/03/20, the Reference Range for ALT/SGPT for adult patients has been updated. The Reference Range for ALT/SGPT has not been established for patients <18 years of age. MAIN LAB, [address] [place] [address] 48775 Total Protein September 12, 2020 1:48pm 6.9 g/dL 6.3-8.2 MAIN [facility], [address] [place] [address] 33150 Albumin September 12, 2020 1:48pm 4.4 g/dL 3.5-5.0 MAIN [facility], [address] [place] [address] 94151 Cholesterol Level September 12, 2020 1:48pm 108 mg/dL 59-199 MAIN LAB, [address] [place] [address] 88079 HDL Cholesterol September 12, 2020 1:48pm 78 mg/dL 40-60 The National Cholesterol Education Program (NCEP) has set the following guidelines (reference values) for cholesterol, HDL:Low HDL: <40 mg/dLNormal: 40-60 mg/dLDesirab le: >60 mg/dL MAIN LAB, [address] [place] [address] 47607 LDL Cholesterol September 12, 2020 1:48pm 7.4 mg/dL 0-129 MAIN LAB, [address] [place] [address] 62382 VLDL Cholesterol September 12, 2020 1:48pm 22.6 mg/dL 0-32 MAIN LAB, [address] [place] [address] 11348 Cholesterol/HDL Ratio September 12, 2020 1:48pm 1.38 0-3.9 MAIN LAB, [address] [place] [address]135 Triglycerides Level September 12, 2020 1:48pm 113 mg/dL 0-149 MAIN LAB, [address] [facility] [address] Alkaline Phosphatase September 12, 2020 1:48pm 93 U/L 38-126 MAIN LAB, [address] [facility] [address] Advance Directives Advance Directive Response Recorded Date/ Time Does patient have an Advanced Directive? No September 25, 2011 9:30am Do we have a copy on file here at [facility]? No April 08, 2017 8:35am Pt has a Living Will? No September 042010 9:30am Do we have a copy on file here at [facility]? No April 08, 2017 8:35am Pt has a Power of Development Chemist? No Cutr matias 2010 9:30am Do we have a copy on file here at [facility]? No April 08, 2017 8:35am Chief Complaint and Reason for Visit Chief Complaint Physical/BUMPED FROM 10 Z00.00 Screening for breast cancer Encounters Encounter Location(s) Arrival/Admit Date Discharge/Depart Date Provider(s) Departed Physician/Prov ider Office Visit [facility] September 12, 2020 12:46pm September 12, 2020 1:52pm Lavelle Gregory MD Departed Referred [facility] September 12, 2020 1:34pm September 12, 2020 1:35pm Lavelle Gregory MD Departed Clinical [facility] November 28, 2020 5:25pm November 28, 2020 5:26pm Lavelle Gregory MD Assessments No Assessments Information Available Family History Relationship Condition Age at Onset Recorded Date/T nelli Parent Dementia Unknown Cerebrovascular accident (CVA) Unknown Not Specified Malignant neoplasm of uterus Unknown Peripheral vascular disease Unknown Parent Arthritis Unknown Osteoporosis Unknown Malignant neoplasm of breast 78 Functional Status Observation Response Date Recorded Ambulation Ability Independent September 1:14pm Goals Goals may be documented in an alternate section. Immunizations Immunization Event Date Not Given Reason Dose Number Routing Clerk Lot Number Vaccine Information Statement (VIS) Detail Influenza Split Virus 3YR Older October 06, 2007 Tdap October 29, 2013 Zoster (shingles) Recomb Vac (Shingrix) July 07, 2018 Zoster (shingles) Recomb Vac (Shingrix) August 11, 2019 [id number] Mental Status No Mental Status Information Available Medical Equipment No Medical Equipment Information available Insurance Providers Guarantor CARMELA GENAO Address [address] [facility] [address] Contact Info. Home Phone: Payer Policy Id Coverage Id Subscriber's Name Subscriber Id Effective Date Expiration Date [employer] [facility] [employer] [id number] CARMELA GENAO [id number] [facility] OUT OF STATE [id number] CARMELA GENAO [id number] [facility] [id number] CARMELA GENAO [id number] 2014 SELF PAY Self N/A Plan of Treatment Very very healthy 55-year-old female here for annual physical exam. No health concerns or questions. I did review her Pap from December 2016 which does not appear to have cotesting but I am unable to log into the [employer] system to verify. Regardless, she will follow-up with EDUCATIONAL PROGRAM DIRECTOR. Future Tests Future scheduled test information is [...] Reference Range Collection Date/Time Height 64 [in_i] September 12, 2020 1:03pm Weight 46.26 kg September 12, 2020 1:03pm Body Temperature 98.9 [degF] 97.6-99.6 September 122019 1:03pm Heart Rate 68 /min 60-100 September 12, 2020 1:03pm Respiratory rate 16 /min 12-24 September 122019 1:03pm BP Systolic 126 mm[Hg] 100-140 September 12, 2020 1:03pm BP Diastolic 78 mm[Hg] 50-85 September 12, 2020 1:03pm BMI (Body Mass Index) 17.5 kg/m2 Novemb 2019 1:03pm
--- OUTSIDE RECORDS SUMMARY | 2023-05-23 11:30 | XMS_ITS | Continuity of Care Document ---
Author Name [facility] Address [address] [place] [address] Organization [facility] Address [address] [place] [address] Care Team Providers Care Rn Informatics Name Role Phone Lavelle Gregory Primary Care Physician [phone] Lavelle Gregory Attending Physician [phone] Allergies, Adverse Reactions, Alerts Allergen Type Severity Reaction Last Updated Verified Status erythromycin base Adverse Reaction Unknown unknown August 11 19 Y Active Medications Active Medications Medication Dose Units Route Sig Qty Start Date Status In structions Echinacea 800 MG ORAL THREE TIMES A DAY April 27, 2019 Active Cinnamon Bark 500 MG ORAL DAILY April 27, 2019 Act clarisa Clobetasol 1 APPLIC TOPICALLY TWICE A DAY PRN 30 August 11, 2019 Active for two weeks Discontinued Medications Medication Dose Units Route Sig Qty Start Date Discontinued Date Status Instructions Clobetasol 1 APPLIC TOPICALLY TWICE A DAY 30 April 27, 2019 August 11, 2019 Discontin ued for two weeks 50 MCG INTRAMUSC ULAR ONCE 1 August [...] Right lower quadrant abdominal pain January 24 15 Resolved Excessive bleeding in premenopausal period Novem 2014 Resolved Uterine leiomyoma October 18, 2014 Resolved Cyst of ovary October 18, 2014 Resolved Procedures Procedure Date Status Provider(s) Colonoscopy in [facility]PD - screen (Not Applicable) April 28, 2017 completed Karely Davis MD Scrn Panel October 06, 2019 completed Digital Mammo Bilat Screening September 29, 2018 [facility] amadou Digital Mammo Bilat Screening April 08, [address] Abd Pel w/ Contrast January 30, [address] ABD & PELV W/CONTRAST January 30, 2015 active US Abdomen (Complete) October 12, 2014 completed US EXAM PELVIC COMPLETE October 12, 2014 active TRANSVAGINAL US NON-OB October 12, 2014 active US EXAM ABDOM COMPLETE October 12, 2014 active US Pelvic Transvaginal Panel October 12, 2014 complet ed COMP SCREEN MAMMOGRAM ADD-ON September 25, 2011 active Digital Mammo Bilat Screening September 25, 2011 comple amadou Relevant Diagnostic Tests and/or Laboratory Data Laboratory Results Test Date/Time Result Interp. Ref. Range Result Co mment White Blood Count 8.68 1000/mm3 4.8-10.8 Red Blood Count 4.72 M/mm3 4.20-5.40 Hemoglobin 14.6 g/dL 12.0-16.0 Hematocrit 44.8 % 37-47 Mean Corpuscular Volume 94.9 fL 81.0-9 9.0 Mean Corpuscular Hemoglobin 30.9 pg 27-31 Mean Corpuscular Hemoglobin Concent 32.6 g/dL Low 33-37 Red Cell Distribution Width 13.4 % 11.5-14.5 Platelet Count 255 1000/mm3 140-440 Mean Platelet Volume 10.8 fL High 7.4-10.4 Neutrophils (%) (Auto) 57.4 % 40.0-72 .0 Lymphocytes (%) (Auto) 29.7 % 17-45 Monocytes (%) (Auto) 10.7 % 3-11 Eosinophils (%) (Auto) 1.9 % 0-3 Basophils (%) (Auto) 0.3 % 0-1 Neutrophils # (Auto) 3.99 1000/mm3 1.4-6 .5 Lymphocytes # (Auto) 2.06 1000/mm3 1.2-3 .4 Monocytes # (Auto) 0.74 1000/mm3 0.0-0.8 Eosinophils # (Auto) 0.13 1000/mm3 0.0-0 .7 Basophils # (Auto) 0.02 1000/mm3 0.0-0.1 Differential Method Automated Sodium Level 142 mmol/L 137-145 Potassium Level 4.1 mmol/L 3.6-5.0 Chloride Level 103 mmol/L 98-107 Carbon Dioxide Level 28 mmol/L 22-30 Anion Gap 15 5-15 Blood Urea Nitrogen 13 mg/dL 7-17 Creatinine 0.65 mg/dL 0.52-1.04 Glomerular Filtration Rate Calc > 60 mL/min Glucose Level 83 mg/dL 65-108 Calcium Level 9.4 mg/dL 8.4-10.2 Calcium Adjusted for Albumin 9.7 mg/dL 8.4-10.2 Total Bilirubin 0.6 mg/dL 0.2-1.3 Aspartate Amino Transf (AST/SGOT) 25 U/L 14-36 Alanine Aminotransferase (ALT/SGPT) 34 U/L 9-52 Total Protein 6.9 g/dL 6.3-8.2 Albumin 3.9 g/dL 3.5-5.0 Cholesterol Level 93 mg/dL 59-199 HDL Cholesterol 63 mg/dL High 40-60 The National Cholesterol Education Program (NCEP) has set the following guidelines (reference values) for cholesterol, HDL: Low HDL: <40 mg/dL Normal: 40-60 mg/dL Desirable: >60 mg/dL LDL Cholesterol 21.8 mg/dL 0-129 VLDL Cholesterol 8.2 mg/dL 0-32 Cholesterol/HDL Ratio 1.47 0-3.9 Triglycerides Level 41 mg/dL 0-149 Alkaline Phosphatase 54 U/L 38-126 Lipase 116 U/L 23-300 Thyroid Stimulating Hormone (TSH) 0.987 mlU/L 0.47-4.68 Hepatitis C Antibody Negative Reference Range: Negative Test Performed by: [place] [address] [employer] Architect: Glenn Rosario MD , Ph D Chlamydia trachomatis Amplified DNA See comments No Chlamydia trachomatis DNA detected by student support advisor mediated amplification. Neisseria gonorrhoeae Amplified DNA See comments No Neisseria gonorrhoeae DNA detected by student support advisor mediated amplification. Test Performed by: [place] [address] [employer] Architect: Eleazar Thornton M.D. Advance Directives Advance Directive Response Recorded Date/ Time Do we have a copy on file here at [facility]? No April 08, 2017 9:35am Does patient have an Advanced Directive? No September 25, 2011 9:30am Pt has a Living Will? No September 042010 9:30am Pt has a Power of Machine Clothing Replacer? Mariaelena matias 2010 9:30am Chief Complaint and Reason for Visit Encounter Admit Date Chief Complaint Reason for V isit Departed Clinical October 06, 2019 7:45am Ike kaminski hypertension Screening for breast cancer Hospital Discharge Instructions No known hospital discharge instructions. Hospital Discharge Medications Medication Dose Units Route Sig Qty Days Order Date Status Instructions Clobetasol 1 APPLIC TOPICALLY TWICE A DAY April 27, 2019 Discontinued for two weeks Echinacea 800 MG ORAL THREE TIMES A DAY April 27, 2019 Active Cinnamon Bark 500 MG ORAL DAILY April 27, 2019 Active Clobetasol 1 APPLIC TOPICALLY TWICE A DAY PRN August 11, 2019 Active for two weeks 50 MCG INTRAMUSCULAR ONCE 1 Oc tober 2018 Discontinued Shingrix Adjuvant Component-P F (adjuvant AS01B (PF)vial 1 of 2) 0.5 ML INTRAMUSCULAR ONCE 0.5 Octobe r 2018 Discontinued Encounters Encounter Facility Location Admit/Visit Date Discharge/Departure Date Attending Provider Departed [facility] October 06, 2019 7:45am October 06, 2019 7:46am Lavelle Gregory Departed [facility] August 11, 2019 11:07am August 11, 2019 11:08am Lavelle Gregory Departed Physician/Pr ovider Office Visit [facility] August 11, 2019 9:39am August 11, 2019 11:31am Lavelle Gregory Departed [facility] August 11, 2019 9:03am August 11, 2019 9:04am Lavelle Gregory Registered Inpatient [facility] April 27, 2019 5:27pm Fatimah Penaloza Departed Physician/Pr ovider Office Visit [facility] TECHNICAL RESEARCH SCIENTIST October 20, 2018 12:00am October 20, 2018 Medgiovanna, Gato Departed Physician/Pr ovider Office Visit [facility] October 06, 2018 12:00am October 06, 2018 Medgiovanna, Gato Departed [facility] September 29, 2018 5:12pm September 29, 2018 5:13pm Lavelle Gregory Departed Physician/Pr ovider Office Visit [facility] July 07, 2018 12:00am July 07, 2018 Medgiovanna, Gato Departed [facility] August 01, 2017 3:39pm August 01, 2017 3:40pm Estephania Gallo Departed Physician/Pr ovider Office Visit [facility] August 01, 2017 12:00am August 01, 2017 Estephania Gallo Departed Surgical Day Care [facility] Surgical Services April 28, 2017 9:00am April 28, 2017 12:14pm Karely Davis Departed Physician/Pr ovider Office Visit [facility] in Surgery April 10, 2017 12:00am April 10, 2017 Medent, Conversion Departed Clinical [facility] DI Walk In [place] April 08, 2017 9:32am April 08, 2017 9:33am Karen Barreto Departed Referred [facility] January 23, 2017 2:25pm January 23, 2017 2:26pm Karen Barreto Departed Physician/Pr ovider Office Visit [facility] January 23, 2017 12:00am January 23, 2017 Karen Barreto Registered Referred [facility] Pathology December 17, 2016 7:45pm Donavan Garcia Departed Physician/Pr ovider Office Visit [facility] TECHNICAL RESEARCH SCIENTIST December 17, 2016 12:00am December 17, 2016 Medent, Conversion Departed Physician/Pr ovider Office Visit [facility] TECHNICAL RESEARCH SCIENTIST December 09, 2016 12:00am December 09, 2016 Medent, Conversion Departed Physician/Pr ovider Office Visit [facility] TECHNICAL RESEARCH SCIENTIST September 07, 2015 12:00am September 07, 2015 Medent, Conversion Departed Physician/Pr ovider Office Visit [facility] TECHNICAL RESEARCH SCIENTIST March 06, 2015 12:00am March 06, 2015 Medent, Conversion Registered Clinical [facility] January 30, 2015 6:58am Donavan Garcia Departed Physician/Pr ovider Office Visit [facility] TECHNICAL RESEARCH SCIENTIST January 24, 2015 12:00am January 24, 2015 Medent, Conversion Departed Physician/Pr ovider Office Visit [facility] TECHNICAL RESEARCH SCIENTIST December 26, 2014 12:00am December 26, 2014 Medent, Conversion Departed Physician/Pr ovider Office Visit [facility] TECHNICAL RESEARCH SCIENTIST October 18, 2014 12:00am October 18, 2014 Medent, Conversion Registered Clinical [facility] October 12, 2014 9:35am Karen Barreto Departed Physician/Pr ovider Office Visit [facility] October 12, 2014 12:00am October 12, 2014 Karen Barreto Registered Referred [facility] September 21, 2014 7:58pm Karen Barreto Departed Physician/Pr ovider Office Visit [facility] September 21, 2014 12:00am September 21, 2014 Karen Barreto Departed Physician/Pr ovider Office Visit [facility] April 15, 2014 12:00am April 15, 2014 Karen Barreto Registered Referred [facility] Referred Lab October 29, 2013 7:55pm Karen Barreto Departed Physician/Pr ovider Office Visit [facility] October 29, 2013 12:00am October 29, 2013 Karen Barreto Registered Referred [facility] OBGYN December 03, 2012 2:35pm Donavan Garcia Registered Referred [facility] Pathology December 03, 2012 8:41am Donavan Garcia Departed Physician/Pr ovider Office Visit [facility] TECHNICAL RESEARCH SCIENTIST December 03, 2012 12:00am December 03, 2012 Medent, Conversion Departed Physician/Pr ovider Office Visit [facility] TECHNICAL RESEARCH SCIENTIST October 29, 2012 12:00am October 29, 2012 Medent, Conversion Departed Physician/Pr ovider Office Visit [facility] TECHNICAL RESEARCH SCIENTIST September 01, 2012 12:00am September 01, 2012 Monica Eason Registered Clinical [facility] September 25, 2011 9:29am Monica Eason Registered Referred [facility] Pathology August 28, 2011 12:12pm Monica Eason Registered Referred [facility] Pathology August 20, 2010 8:41am Donavan Garcia Departed Clinical [facility] September 12, 2009 12:00am September 12, 2009 Donavan Garcia Departed Referred [facility] Referred Lab August 10, 2009 12:00am August 10, 2009 Donavan Garcia Departed Clinical [facility] August 25, 2008 12:00am August 25, 2008 Donavan Garcia Departed Referred [facility] Referred Lab August 02, 2008 12:00am August 02, 2008 Donavan Garcia Departed Clinical [facility] Outpatient Conversion May 20, 2008 12:00am May 20, 2008 Solitario Hewitt Departed Clinical [facility] Outpatient Conversion August 18, 2007 12:00am August 18, 2007 Donavan Garcia Departed Referred [facility] Referred Lab July 21, 2006 12:00am July 21, 2006 Donavan Garcia Departed Clinical [facility] Outpatient Conversion August 05, 2005 12:00am August 05, 2005 Donavan Garcia Departed Referred [facility] Referred Lab June 06, 2005 12:00am June 06, 2005 Donavan Garcia Departed Surgical Day Care [facility] Medical and Surgical Unit October 16, 2004 12:00am October 17, 2004 Michael Sanabria Departed Surgical Day Care [facility] Ambulatory Surgery October 10, 2004 12:00am October 10, 2004 Michael Sanabria Departed Referred [facility] Referred Lab June 05, 2004 12:00am June 05, 2004 Donavan Garcia Departed Referred [facility] Referred Lab May 26, 2003 12:00am May 26, 2003 Donavan Garcia Departed Referred [facility] Referred Lab May 17, 2002 12:00am May 17, 2002 Donavan Garcia Departed Clinical [facility] Outpatient Conversion October 23, 2001 12:00am October 23, 2001 Jo-Ann Jay Departed [facility] Outpatient Conversion August 04, 2001 12:00am August 04, 2001 Jyotsna Gaytan Departed Referred [facility] Referred Lab May 14, 2001 12:00am May 14, 2001 Donavan Garcia Discharged Inpatient [facility] March 25, 2001 12:00am March 28, 2001 Joie Goyal Departed Referred [facility] Referred Lab December 15, 2000 12:00am December 15, 2000 Donavan Garcia Departed Referred [facility] Referred Lab August 14, 2000 12:00am August 14, 2000 Donavan Garcia Departed Referred [facility] Referred Lab February 07, 2000 12:00am February 07, 2000 Donavan Garcia Departed [facility] Outpatient Conversion January 19, 1999 12:00am January 19, 1999 Donavan Garcia Departed Referred [facility] Referred Lab December 22, 1998 12:00am December 22, 1998 Donavan Garcia Departed [facility] January 27, 1998 12:00am January 27, 1998 Jo-Ann Jay Departed [facility] December 19, 1997 12:00am December 19, 1997 [facility] December 13, 1997 12:00am December 13, 1997 Donavan Garcia [facility] January 27, 1997 12:00am January 27, 1997 Jo-Ann Jay [facility] November 22, 1996 12:00am November 22, 1996 Donavan Garcia [facility] September 14, 1996 12:00am September 15, 1996 Donavan Garcia [facility] June 09, 1996 12:00am June 09, 1996 Donavan Garcia [facility] February 23, 1996 12:00am February 23, 1996 Donavan Garcia [facility] August 13, 1995 12:00am August 13, 1995 Donavan Garcia [facility] January 09, 1995 12:00am January 10, 1995 Donavan Garcia [facility] October 22, 1994 12:00am October 22, 1994 Donavan Garcia [facility] October 08, 1994 12:00am October 08, 1994 Donavan Garcia [facility] June 26, 1994 12:00am June 26, 1994 Donavan Garcia [facility] June 06, 1994 12:00am June 06, 1994 Donavan Garcia [facility] Physician/Pr ovider Office Visit [facility] Mis Comp Pain location Medent, Conversion Functional Status Query Response Date Recorded Comment Comprehension Ability Understands Concepts April 28 10:05am Speech Appropriate April 28, 2017 10:05am Query Response Date Recorded Comment Living Situation With Family April 28, 2017 10:05am Immunizations Immunization Name Date Given Type Influenza Split Virus 3YR Older October 06, 2007 Historical Tdap October 29, 2013 Historical Zoster (shingles) Recomb Vac (Shingrix) 2017 Historical Zoster (shingles) Recomb Vac (Shingrix) August 11, 2019 Administered Payers Payer Name Policy Type Covered Republican Covered Republican Id Relationship Subscriber Subscriber Id [employer] Partner [employer] AdKeeper Carmela Genao [id number] Self/Same as Patient Carmela Genao [id number] [facility] AdKeeper Carmela Genao [id number] Self/Same as Patient Carmela Genao [id number] [facility] Commercial Carmela Genao [id number] Self/Same as Patient Carmela Genao [id number] SELF PAY Personal Plan of Care No Known Plan of Care Information Social History Query Response Date Recorded Comment Alcohol Use No April 28, 2017 10:05am Smoking Status Never smoker August 11, 2019 10:40am Substance Use Treatment No April 28, 2017 10: 05am Substance/Street Drug Use No April 28, 2017 1 0:05am substance use type does not use August 11, 2019 10:20a m Query Response Start Date Stop Date Smoking Status Never smoker Vital Signs Vital Reading Result Reference Range Collection Date/Time Height 5 ft 4 in August 11, 2019 10:02am Weight 48.988 kg August 11, 2019 10:02am Temperature 98.6 F 97.6 F-99.6 F August 11 9 10:02am Pulse 76 BPM 60-100 August 11, 2019 10:02am Respiration 16 RPM -August 11, 2019 10:02am Pulse Oximetry 95 % 95-100 April 28, 2017 12:12pm Blood Pressure Systolic 124 100-140 Octo 2018 10:02am Blood Pressure Diastolic 78 50-85 Oct travon 2018 10:02am Body Mass Index 18.5 August 11 019 10:02am
--- OUTSIDE RECORDS SUMMARY | 2023-05-23 11:30 | XMS_ITS | Continuity of Care Document ---
Author Name [facility] Address [address] [place] [address] Organization [facility] Address [address] [place] [address] Care Team Providers Care Medical Delivery Technician Name Role Phone Lavelle Gregory Primary Care Physician [phone] Lavelle Gregory Attending Physician Allergies, Adverse Reactions, Alerts Allergen Type Severity Reaction Last Updated Verified Status erythromycin base Allergy rash April 28, 2017 Y Active Medications No known medications. Problem List No problem information available. Procedures Procedure Date Status Digital Mammo Bilat Screening September 29, 2018 active Relevant Diagnostic Tests and/or Laboratory Data No known relevant diagnostic tests, laboratory data, and/or discharge summary. Advance Directives Advance Directive Response Recorded Date/ Time Do we have a copy on file here at [facility]? No April 08, 2017 9:35am Does patient have an Advanced Directive? No September 25, 2011 9:30am Pt has a Living Will? No September 042010 9:30am Pt has a Power of Churn Operator Margarine? No Curt 2010 9:30am Chief Complaint and Reason for Visit Encounter Admit Date Chief Complaint Reason for V isit Departed Clinical September 29, 2018 5:12pm [facility] Hospital Discharge Instructions No known hospital discharge instructions. Encounters Encounter Facility Location Admit/Visit Date Discharge/Departure Date Attending Provider Departed Clinical [facility] DI Walk In [place] September 29, 2018 5:12pm September 29, 2018 5:13pm Lavelle Gregory Functional Status No known functional status. Immunizations No known immunizations. Payers Payer Name Policy Type Covered Republican Covered Republican Id Relationship Subscriber Subscriber Id [employer] Commercial CARMELA GENAO [id number] Self/Same as Patient CARMELA GENAO [id number] [employer] OUT OF STATE Commercial CARMELA GENAO [id number] Self/Same as Patient CARMELA GENAO [id number] [facility] Commercial CARMELA GENAO [id number] Self/Same as Patient CARMELA GENAO [id number] SELF PAY Personal Plan of Care No Known Plan of Care Information Social History Query Response Start Date Stop Date Smoking Status Never smoker Vital Signs No known vital signs results.
--- OUTSIDE RECORDS SUMMARY | 2023-05-23 11:30 | XMS_ITS | Continuity of Care Document ---
Author Name [facility] Address [address] [place] [address] [address] [facility] Address [address] [place] [address] Care Team Providers Care Pretzel Cooker Name Role Phone Lavelle Gregory Primary Care Physician Unavail able Lavelle Gregory Attending Physician Unavailabl e Allergies, Adverse Reactions, Alerts Allergen Type Severity [...] 11, 2019 Discontin ued for two weeks Varicella-Z dyan Ge Vac,2 Of 2 [Shingrix Ge Antigen Component] 50 MCG INTRAMUSC ULAR ONCE 1 August 11, 2019 August 11, 2019 Discontin ued Adjuvant As01b (Pf)Vial 1 Of 2 [Shingrix Adjuvant Component-P f] 0.5 ML INTRAMUSC ULAR ONCE 0.5 August [...] 18, 2014 Resolved Procedures Procedure Date Status Digital Mammo Bilat Screening September 29, 2018 completed Relevant Diagnostic Tests and/or Laboratory Data Laboratory Results Test Date/Time Result Interp. Ref. Range Result Co mment White Blood Count August 11, 2019 9:18am 6.28 1000/mm3 4.8-10.8 Red Blood Count August 11, 2019 9:18am 4.85 M/mm3 4.20-5.40 Hemoglobin August 11, 2019 9:18am 14.7 g/dL 12.0-16.0 Hematocrit August 11, 2019 9:18am 46.1 % 37-47 Mean Corpuscular Volume August 11, 2019 9:18am 95.1 fL 81.0-99.0 Mean Corpuscular Hemoglobin August 11, 2019 9:18am 30.3 pg 27-31 Mean Corpuscular Hemoglobin Concent August 11, 2019 9:18am 31.9 g/dL Low 33-37 Red Cell Distribution Width August 11, 2019 9:18am 12.8 % 11.5-14.5 Platelet Count August 11, 2019 9:18am 290 1000/mm3 140-440 Mean Platelet Volume August 11, 2019 9:18am 11.0 fL High 7.4-10.4 Sodium Level August 11, 2019 9:18am 142 mmol/L 137-145 Potassium Level August 11, 2019 9:18am 4.2 mmol/L 3.6-5.0 Chloride Level August 11, 2019 9:18am 103 mmol/L 98-107 Carbon Dioxide Level August 11, 2019 9:18am 32 mmol/L High 22-30 Anion Gap August 11, 2019 9:18am 7 7-16 Blood Urea Nitrogen August 11, 2019 9:18am 12 mg/dL 7-17 Creatinine August 11, 2019 9:18am 0.58 mg/dL 0.52-1.04 Glomerular Filtration Rate Calc August 11, 2019 9:18am > 60 mL/min 60.0- Glucose Level August 11, 2019 9:18am 85 mg/dL 70-100 Calcium Level August 11, 2019 9:18am 9.4 mg/dL 8.4-10.2 Calcium Adjusted for Albumin August 11, 2019 9:18am 9.2 mg/dL 8.4-10.2 Total Bilirubin August 11, 2019 9:18am 0.7 mg/dL 0.2-1.3 Aspartate Amino Transf (AST/SGOT) August 11, 2019 9:18am 28 U/L 14-36 Alanine Aminotransferase (ALT/SGPT) August 11, 2019 9:18am 25 U/L 9-52 Total Protein August 11, 2019 9:18am 7.4 g/dL 6.3-8.2 Albumin August 11, 2019 9:18am 4.5 g/dL 3.5-5.0 Cholesterol Level August 11, 2019 9:18am 118 mg/dL 59-199 HDL Cholesterol August 11, 2019 9:18am 75 mg/dL High 40-60 The National Cholesterol Education Program (NCEP) has set the following guidelines (reference values) for cholesterol, HDL: Low HDL: <40 mg/dL Normal: 40-60 mg/dL Desirable: >60 mg/dL LDL Cholesterol August 11, 2019 9:18am 27.0 mg/dL 0-129 VLDL Cholesterol August 11, 2019 9:18am 16.0 mg/dL 0-32 Cholesterol/HDL Ratio August 11, 2019 9:18am 1.57 0-3.9 Triglycerides Level August 11, 2019 9:18am 80 mg/dL 0-149 Alkaline Phosphatase August 11, 2019 9:18am 79 U/L 38-126 Chief Complaint and Reason for Visit Encounter Admit Date Chief Complaint Reason for V isit Departed Clinical August 11, 2019 9:03am [facility] Hospital Discharge Instructions No known hospital discharge [...] August 11, 2019 Active for two weeks Varicella-Z dyan Ge Vac,2 Of 2 50 MCG INTRAMUSCULAR ONCE 1 Octob er 2018 Discontinued Adjuvant As01b (Pf)Vial 1 Of 2 0.5 ML INTRAMUSCULAR ONCE 0.5 Octobe r 2018 Discontinued Encounters Encounter Facility Location Admit/Visit Date Discharge/Departure Date Attending Provider Departed Clinical [facility] August 11, 2019 11:07am August 11, 2019 11:08am Lavelle Gregory Departed Physician/Pr ovider Office Visit [facility] August 11, 2019 9:39am August 11, 2019 11:31am Lavelle Gregory Departed Clinical [facility] LAB [facility] August 11, 2019 9:03am August 11, 2019 9:04am Lavelle Gregory Registered Inpatient [facility] April 27, 2019 5:27pm Fatimah Penaloza Departed Physician/Pr ovider Office Visit [facility] HOSPITAL NURSING ASSISTANT October 20, 2018 12:00am October 20, 2018 Gato Oshea Departed Physician/Pr ovider Office Visit [facility] October 06, 2018 12:00am October 06, 2018 Medent, Conversion Departed Clinical [facility] DI Walk In [place] September 29, 2018 5:12pm September 29, 2018 5:13pm Lavelle Gregory Functional Status No known functional status. Immunizations Immunization Name Date Given Type Influenza Split Virus 3YR Older October 06, 2007 Historical Tdap October 29, 2013 Historical Zoster (shingles) Recomb Vac (Shingrix) 2017 Historical Zoster (shingles) Recomb Vac (Shingrix) August 11, 2019 Administered Payers Payer Name Policy Type Covered Republican Covered Republican Id Relationship Subscriber Subscriber Id [employer] Carmela Isaac [id number] Self/Same as Patient Carmela Isaac [id number] [facility] Savor Carmela Fulleri [id number] Self/Same as Patient Carmela Isaac [id number] [facility] Sav[employer] Carmela Fulleri [id number] Self/Same as Patient Carmela Isaac [id number] SELF PAY Personal Plan of Care No Known Plan of Care Information Social History No known social history. Vital Signs Vital Reading Result Reference Range Collection Date/Time Height 5 ft 4 in August 11, 2019 10:02am Weight 48.988 kg August 11, 2019 10:02am Temperature 98.6 F 97.6 F-99.6 F August 11 9 10:02am Pulse 76 BPM 60-100 August 11, 2019 10:02am Respiration 16 RPM -August 11, 2019 10:02am Pulse Oximetry n/a Blood Pressure Systolic 124 100-140 Octo 2018 10:02am Blood Pressure Diastolic 78 50-85 Oct travon 2018 10:02am Body Mass Index 18.5 August 11 019 10:02am
--- OUTSIDE RECORDS SUMMARY | 2023-05-23 11:30 | XMS_ITS | Continuity of Care Document ---
Author Name [facility] Address [address] [place] [address] Organization [facility] Address [address] [place] [address] Care Team Providers Care Return Agent Airport Name Role Phone Karen Barreto Primary Care Physician Karen Barreto Attending Physician Allergies, Adverse Reactions, Alerts No allergy information available. Medications No medication information available. Problem List No problem information available. Procedures Procedure Date Status Digital Mammo Bilat Screening April 08, 2017 [...] Reference Range: Negative Test Performed by: [place] [address] Crop Adjuster: Glenn Rosario MD , Ph D Advance Directives Advance Directive Response Recorded Date/ Time Do we have a copy on file here at [facility]? No April 08, 2017 9:35am Does patient have an Advanced Directive? No September 25, 2011 9:30am Pt has a Living Will? No September 042010 9:30am Pt has a Power of Senior Game Designer? No Curt 2010 9:30am Chief Complaint and Reason for Visit Encounter Admit Date Chief Complaint Reason for V isit Departed Clinical April 08, 2017 9:32am [facility] Hospital Discharge Instructions No known hospital discharge instructions. Encounters Encounter Facility Location Admit/Visit Date Discharge/Departure Date Attending Provider Departed Clinical [facility] DI Walk In [place] April 08, 2017 9:32am April 08, 2017 9:33am Karen Barreto Departed Referred [facility] January 23, 2017 2:25pm January 23, 2017 2:26pm Karen Barreto Registered Referred [facility] Pathology December 17, 2016 7:45pm Donavan Garcia Functional Status No known functional status. Immunizations No known immunizations. Payers Payer Name Policy Type Covered Republican Covered Republican Id Relationship Subscriber Subscriber Id [facility] [employer] CARMELA GENAO [id number] Self/Same as Patient CARMELA GENAO [id number] [facility] Commercial CARMELA GENAO [id number] Self/Same as Patient CARMELA GENAO [id number] SELF PAY Personal Plan of Care No Known Plan of Care Information Social History No known social history. Vital Signs No known vital signs results.
--- OUTSIDE RECORDS SUMMARY | 2023-05-23 11:30 | XMS_ITS | Continuity of Care Document ---
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 Role Phone Donavan Garcia Attending Provider [phone] Herson Carbone Primary Care Provider [phone] JoA-nn Jay Attending Provider Gloria Camara Attending Provider [phone] Joie Goyal Attending Provider Jyotsna Gaytan Attending Provider Michael Sanabria Attending Provider Unavailable Solitario Hewitt Attending Provider [phone] Monica Eason Attending Provider PCP, Not Given Primary Care Provider UnavailKaren Marcano Attending Provider Karen Barreto Primary Care Provider [phone] Karely Davis Attending Provider Estephania Gallo Attending Provider [phone] Lavelle Gregory Primary Care Provider Lavelle Gregory Attending Provider Allergies, Adverse Reactions, Alerts Allergen Type Severity Reaction Last Updated Verified Status erythromycin base Adverse Reaction Unknown unknown D ecember 2018 Yes Active Medications Medication Status Dose Units Route Sig Qty Days Start Date End Date Instructions Clobetasol Discontinu ed 1 APPLIC TOPICALLY TWICE A DAY April 27, 2019 5:27pm August 11, 2019 10:16am for two weeks Echinacea Active 800 MG ORAL THREE TIMES A DAY April 27, 2019 5:28pm Cinnamon Bark Active 500 MG ORAL DAILY April 27, 2019 5:28pm Clobetasol Active 1 APPLIC TOPICALLY TWICE A DAY August 11, 2019 10:13am for two weeks Discontinu ed 50 MCG INTRAMUSC ULAR ONCE 1 August 11, 2019 9:39am August 11, 2019 11:40am Shingrix Adjuvant Component-P F (adjuvant AS01B (PF)vial 1 of 2) Discontinu ed 0.5 ML INTRAMUSC ULAR ONCE 0.5 August 11, 2019 9:39am August 11, 2019 11:40am Problems Active Problems Medical Problem Onset Date [...] Date Performed Status Digital Mammo Bilat Screening April 08, 2017 co mpleted Mike Mammo Bilat Scrn Panel October 06, 2019 c ompleted Digital Mammo Bilat Screening September 29 8 completed Colonoscopy April 28, 2017 10:30am complete d CT Abd Pel w/ Contrast January 30, [address] ABD & PELV W/CONTRAST January 30, 2015 active US Abdomen (Complete) October 12, 2014 comple amadou US Pelvic Transvaginal Panel October 12, 2014 completed US EXAM PELVIC COMPLETE October 12, 2014 acti ve TRANSVAGINAL US NON-OB October 12, 2014 activ e US EXAM ABDOM COMPLETE October 12, 2014 activ e Digital Mammo Bilat Screening September 25 1 completed COMP SCREEN MAMMOGRAM ADD-ON September 25, 2011 active Relevant Diagnostic Tests and/or Laboratory Data Laboratory Results Test Date/Time Result Interpretation Reference Range Result Comment Performing Site White Blood Count 3.74 1000/mm3 4.8-10.8 MAIN LAB, [address] [place] [address] 52441 White Blood Count 8.68 1000/mm3 4.8-10.8 White Blood Count 6.28 1000/mm3 4.8-10.8 MAIN LAB, [address] [place] [address] 79900 White Blood Count 6.94 1000/mm3 4.8-10.8 Red Blood Count 4.72 M/mm3 4.20-5.40 Red Blood Count 4.42 M/mm3 4.20-5.40 Red Blood Count 4.57 M/mm3 4.20-5.40 MAIN LAB, [address] [place] [address] 88434 Red Blood Count 4.85 M/mm3 4.20-5.40 MAIN LAB, [address] [place] [address] 33977 Hemoglobin 14.7 g/dL 12.0-16.0 MAIN LAB, [address] [place] [address] 17319 Hemoglobin 14.6 g/dL 12.0-16.0 Hemoglobin 13.8 g/dL 12.0-16.0 Hemoglobin 13.9 g/dL 12.0-16.0 MAIN LAB, [address] [place] [address] 25181 Hematocrit 44.8 % 37-47 Hematocrit 42.7 % 37-47 MAIN LAB, [address] [place] [address] 03457 Hematocrit 41.3 % 37-47 Hematocrit 46.1 % 37-47 MAIN LAB, [address] [place] [address] 72709 Mean Corpuscular Volume 93.4 fL 81.0-99.0 Mean Corpuscular Volume 94.9 fL 81.0-99.0 Mean Corpuscular Volume 93.4 fL 81.0-99.0 MAIN LAB, [address] [place] [address] 58657 Mean Corpuscular Volume 95.1 fL 81.0-99.0 MAIN LAB, [address] [place] [address] 36738 Mean Corpuscular Hemoglobin 30.9 pg 27-31 Mean Corpuscular Hemoglobin 31.2 pg 27-31 Mean Corpuscular Hemoglobin 30.3 pg 27-31 MAIN LAB, [address] [place] [address] 99686 Mean Corpuscular Hemoglobin 30.4 pg 27-31 MAIN LAB, [address] [place] [address] 09851 Mean Corpuscular Hemoglobin Concent 31.9 g/dL 33-37 MAIN LAB, [address] [place] [address] 50611 Mean Corpuscular Hemoglobin Concent 33.4 g/dL 33-37 Mean Corpuscular Hemoglobin Concent 32.6 g/dL 33-37 MAIN LAB, [address] [place] [address] 45036 Mean Corpuscular Hemoglobin Concent 32.6 g/dL 33-37 Red Cell Distribution Width 12.8 % 11.5-14.5 MAIN LAB, [address] [place] [address] 73575 Red Cell Distribution Width 12.8 % 11.5-14.5 MAIN LAB, [address] [place] [address] 03417 Red Cell Distribution Width 13.4 % 11.5-14.5 Red Cell Distribution Width 13.3 % 11.5-14.5 Platelet Count 290 1000/mm3 140-440 MAIN LAB, [address] [place] [address] 88818 Platelet Count 241 1000/mm3 140-440 MAIN LAB, [address] [place] [address] 82117 Platelet Count 309 1000/mm3 140-440 Platelet Count 255 1000/mm3 140-440 Mean Platelet Volume 11.0 fL 7.4-10.4 MAIN LAB, [address] [place] [address] 70345 Mean Platelet Volume 10.8 fL 7.4-10.4 Mean Platelet Volume 10.5 fL 7.4-10.4 MAIN LAB, [address] [place] [address] 30419 Mean Platelet Volume 10.4 fL 7.4-10.4 Neutrophils (%) (Auto) 57.4 % 40.0-72.0 Lymphocytes (%) (Auto) 29.7 % 17-45 Monocytes (%) (Auto) 10.7 % 3-11 Eosinophils (%) (Auto) 1.9 % 0-3 Basophils (%) (Auto) 0.3 % 0-1 Neutrophils # (Auto) 3.99 1000/mm3 1.4-6.5 Lymphocytes # (Auto) 2.06 1000/mm3 1.2-3.4 Monocytes # (Auto) 0.74 1000/mm3 0.0-0.8 Eosinophils # (Auto) 0.13 1000/mm3 0.0-0.7 Basophils # (Auto) 0.02 1000/mm3 0.0-0.1 Differential Method Automated Sodium Level 141 mmol/L 137-145 Sodium Level 142 mmol/L 137-145 MAIN LAB , [address] [place] [address] Sodium Level 143 mmol/L 137-145 MAIN LAB , [address] [place] [address] Sodium Level 142 mmol/L 137-145 Potassium Level 4.2 mmol/L 3.6-5.0 Potassium Level 4.1 mmol/L 3.6-5.0 MAIN LAB, [address] [place] [address] 87659 Potassium Level 4.2 mmol/L 3.6-5.0 MAIN LAB, [address] [place] [address] 92669 Potassium Level 4.1 mmol/L 3.6-5.0 Chloride Level 101 mmol/L 98-107 Chloride Level 103 mmol/L 98-107 Chloride Level 103 mmol/L 98-107 MAIN LAB, [address] [place] [address] 68196 Chloride Level 104 mmol/L 98-107 MAIN LAB, [address] [place] [address] 16393 Carbon Dioxide Level 28 mmol/L 22-30 Carbon Dioxide Level 32 mmol/L 22-30 MAIN LAB, [address] [place] [address] 23716 Carbon Dioxide Level 29 mmol/L 22-30 Carbon Dioxide Level 28 mmol/L 22-30 MAIN LAB, [address] [place] [address] 38173 Anion Gap 11 7-16 MAIN LAB, [address] [place] [address] 84557 Anion Gap 15 5-15 Anion Gap 7 7-16 MAIN LAB, [address] [place] [address] 06099 Anion Gap 11 7-16 Blood Urea Nitrogen 10 mg/dL 7-17 MAIN LAB, [address] [place] [address] 14013 Blood Urea Nitrogen 12 mg/dL 7-17 MAIN LAB, [address] [place] [address] 90728 Blood Urea Nitrogen 14 mg/dL 7-17 Blood Urea Nitrogen 13 mg/dL 7-17 Creatinine 0.6 mg/dL 0.52-1.04 MAIN LAB, [address] [place] [address] 42109 Creatinine 0.65 mg/dL 0.52-1.04 Creatinine 0.58 mg/dL 0.52-1.04 MAIN LAB , [address] [place] [address] 06943 Creatinine 0.63 mg/dL 0.52-1.04 Glomerular Filtration Rate Calc > 60 mL/min >60.0 MAIN LAB, [address] [place] [address] 63388 Glomerular Filtration Rate Calc > 60 mL/min Glomerular Filtration Rate Calc > 60 mL/min Glomerular Filtration Rate Calc > 60 mL/min MAIN LAB, [address] [place] [address] 64080 Glucose Level 83 mg/dL 65-108 Glucose Level 85 mg/dL 70-100 MAIN LAB, [address] [place] [address] 65922 Glucose Level 83 mg/dL 70-100 MAIN LAB, [address] [place] [address] 69900 Glucose Level 81 mg/dL 70-100 Calcium Level 9.4 mg/dL 8.4-10.2 MAIN LA B, [address] [place] [address] 25536 Calcium Level 9.1 mg/dL 8.4-10.2 Calcium Level 8.8 mg/dL 8.4-10.2 MAIN LA B, [address] [place] [address] 55031 Calcium Level 9.4 mg/dL 8.4-10.2 Calcium Adjusted for Albumin 8.9 mg/dL 8.4-10.2 MAIN LAB, [address] [place] [address] 39098 Calcium Adjusted for Albumin 9.3 mg/dL 8.4-10.2 Calcium Adjusted for Albumin 9.2 mg/dL 8.4-10.2 MAIN LAB, [address] [place] [address] 32926 Calcium Adjusted for Albumin 9.7 mg/dL 8.4-10.2 Total Bilirubin 0.6 mg/dL 0.2-1.3 Total Bilirubin 0.6 mg/dL 0.2-1.3 MAIN LAB, [address] [place] [address] 24787 Total Bilirubin 0.7 mg/dL 0.2-1.3 MAIN LAB, [address] [place] [address] 14477 Total Bilirubin 0.2 mg/dL 0.2-1.3 Aspartate Amino Transf (AST/SGOT) 25 U/L 14-36 Aspartate Amino Transf (AST/SGOT) 28 U/L 14-36 MAIN LAB, [address] [place] [address] 15690 Aspartate Amino Transf (AST/SGOT) 23 U/L 14-36 MAIN LAB, [address] [place] [address] 79744 Aspartate Amino Transf (AST/SGOT) 21 U/L 14-36 Alanine Aminotransfer ase (ALT/SGPT) 34 U/L 9-52 Alanine Aminotransfer ase (ALT/SGPT) 25 U/L 9-52 MAIN LAB, [address] [place] [address] 58057 Alanine Aminotransfer ase (ALT/SGPT) 26 U/L 9-52 Alanine Aminotransfer ase (ALT/SGPT) 31 U/L 9-52 MAIN LAB, [address] [place] [address] 44937 Total Protein 6.9 g/dL 6.3-8.2 Total Protein 6.9 g/dL 6.3-8.2 Total Protein 7.4 g/dL 6.3-8.2 MAIN LAB, [address] [place] [address] 48391 Total Protein 7.1 g/dL 6.3-8.2 MAIN LAB, [address] [place] [address] 31412 Albumin 3.9 g/dL 3.5-5.0 Albumin 4.2 g/dL 3.5-5.0 MAIN LAB, [address] [place] [address] 03821 Albumin 4.5 g/dL 3.5-5.0 MAIN LAB, [address] [place] [address] 87427 Albumin 4.1 g/dL 3.5-5.0 Cholesterol Level 100 mg/dL 59-199 MAIN LAB, [address] [place] [address] 34182 Cholesterol Level 93 mg/dL 59-199 Cholesterol Level 118 mg/dL 59-199 MAIN LAB, [address] [facility] [address] HDL Cholesterol 63 mg/dL 40-60 The National Cholesterol Education Program (NCEP) has set the following guidelines (reference values) for cholesterol, HDL:Low HDL: <40 mg/dLNormal: 40-60 mg/dLDesirable : >60 mg/dL HDL Cholesterol 75 mg/dL 40-60 The National Cholesterol Education Program (NCEP) has set the following guidelines (reference values) for cholesterol, HDL:Low HDL: <40 mg/dLNormal: 40-60 mg/dLDesirable : >60 mg/dL MAIN LAB, [address] [place] [address] 95139 HDL Cholesterol 58 mg/dL 40-60 The National Cholesterol Education Program (NCEP) has set the following guidelines (reference values) for cholesterol, HDL:Low HDL: <40 mg/dLNormal: 40-60 mg/dLDesirable : >60 mg/dL MAIN LAB, [address] [facility] [address] LDL Cholesterol 27.0 mg/dL 0-129 MAIN LAB, [address] [facility] [address] LDL Cholesterol 27.4 mg/dL 0-129 MAIN LAB, [address] [facility] [address] LDL Cholesterol 21.8 mg/dL 0-129 VLDL Cholesterol 14.6 mg/dL 0-32 MAIN LAB, [address] [facility] [address] VLDL Cholesterol 8.2 mg/dL 0-32 VLDL Cholesterol 16.0 mg/dL 0-32 MAIN LAB, [address] [place] [address] 25070 Cholesterol/H DL Ratio 1.72 0-3.9 MAIN LAB, [address] [place] [address] 89050 Cholesterol/H DL Ratio 1.57 0-3.9 MAIN LAB, [address] [place] [address] 40867 Cholesterol/H DL Ratio 1.47 0-3.9 Triglycerides Level 73 mg/dL 0-149 MAIN LAB, [address] [facility] [address] Triglycerides Level 80 mg/dL 0-149 MAIN LAB, [address] [facility] [address] Triglycerides Level 41 mg/dL 0-149 Alkaline Phosphatase 79 U/L 38-126 MAIN LAB, [address] [facility] [address] Alkaline Phosphatase 61 U/L 38-126 Alkaline Phosphatase 74 U/L 38-126 MAIN LAB, [address] [facility] [address] Alkaline Phosphatase 54 U/L 38-126 Lipase 116 U/L 23-300 Thyroid Stimulating Hormone (TSH) 0.987 mlU/L 0.47-4.68 Hepatitis C Antibody Negative NEGAT Reference Range: NegativeTest Performed by:THE [address] [id number] Director: Glenn Rosario MD , Ph D [facility] Chlamydia trachomatis Amplified DNA See comments No Chlamydia trachomatis DNA detected by steel turner mediated amplification. Neisseria gonorrhoeae Amplified DNA See comments No Neisseria gonorrhoeae DNA detected by steel turner mediated amplification. Test Performed by:[address] [id number] Director: Eleazar Thornton M.D. Diagnostic Imaging Reports Report Dictated Date/Time Dictated By Status Radiology Report September 25, 2011 10:20am Jomar Mai MD completed [facility] MAMMOGRAPHY REPORT PATIENT NAME: CARMELA GENAO [id number] DATE OF : 1965 ATTENDING/ER PHYSICIAN: NABEEL Aguayo ER/ATTENDING PHYSICIAN: PRIMARY CARE PHYS: Herson Carbone MD ADMITTING PHYSICIAN: CONSULTING PHYSICIAN: PROCEDURE DATE: 09/25/11 REPORT STATUS: Signed DICTATING PHYSICIAN: Jomar Mai MD REASON FOR EXAM: SCREENING DIGITAL MAMMO BILAT SCREENING WITH CAD REVIEW TECHNIQUE: Mediolateral and craniocaudal projections of the breasts were performed using digital mammography. The images are sequenced through the 9.2 software version of the computer aided diagnosis system.Study compared to previous examination August 2008 and September 2009. FINDINGS: No skin thickening nipple retraction or skin dimpling. Breast parenchyma consist of heterogeneously dense fibroglandular tissue. No clustering suspicious microcalcifications, discrete dominant lesion or architectural distortion. IMPRESSION: No definite evidence for malignancy. Stable mammogram. Recommend routine followup. ASSESSMENT: BI-RADS Category 1. Negative dd: 09/25/11 1020 09/25/11 1021 Radiology Report October 12, 2014 10:41am Amie Owens MD completed [facility] ULTRASOUND REPORT PATIENT NAME: CARMELA GENAO [id number] DATE OF : 1965 ATTENDING/ER PHYSICIAN: Karen Barreto APRN ER/ATTENDING PHYSICIAN: PRIMARY CARE PHYS: Karen Barreto APRN ADMITTING PHYSICIAN: CONSULTING PHYSICIAN: PROCEDURE DATE: 10/12/14 REPORT STATUS: Signed DICTATING PHYSICIAN: Amie Owens MD REASON FOR EXAM: RUQ, RLQ DISCOMFORT STUDY: US PELVIC TRANSVAG PANEL TECHNIQUE: Grayscale, color and pulsed Doppler interrogation was utilized. No prior study is available for comparison. FINDINGS: Retroverted uterus measures 5.7 x 6.9 x 5 cm and demonstrates heterogeneous echotexture. Fundal intramural fibroid located to the left of the midline measures 1.5 x 1.3 x 1.7 cm. The endometrial stripe measures 5 mm in maximal dimension. No free fluid is noted within the cul-de-sac. The right ovary measures 2.8 x 1.8 x 2.4 cm, with estimated volume of 6.4 mL. The left ovary measures 2.7 x 1.3 x 1.5 cm, with estimated volume of 2.9 mL. Complex right ovarian cyst measures 1 x 0.8 x 0.8 cm. Simple left ovarian cyst measures 0.8 x 0.7 x 0.8 cm. No solid adnexal masses are identified. Normal spectral arterial flow is present bilaterally. CONCLUSION: Uterine fibroid and small bilateral ovarian cysts. dd: 10/12/14 1041 <Electronically signed by Amie Owens MD> 10/12/14 1146 Radiology Report October 12, 2014 11:47am Amie Owens MD completed [facility] ULTRASOUND REPORT PATIENT NAME: CARMELA GENAO [id number] DATE OF : 1965 ATTENDING/ER PHYSICIAN: Karen Barreto APRN ER/ATTENDING PHYSICIAN: PRIMARY CARE PHYS: Karen Barreto APRN ADMITTING PHYSICIAN: CONSULTING PHYSICIAN: PROCEDURE DATE: 10/12/14 REPORT STATUS: Signed DICTATING PHYSICIAN: Amie Owens MD REASON FOR EXAM: RUQ, RLQ DISCOMFORT STUDY: US ABDOMEN (COMPLETE) TECHNIQUE: grayscale and color flow images of the abdomen were obtained with curvilinear transducer. FINDINGS: The liver measures 15.2 cm in greatest dimension. Hepatic echotexture is normal. There are no masses or biliary ductal dilatation. Normal hepatic vascular flow is noted. Non-tender gallbladder is without stones or sludge. The wall thickness is normal at 1.8 mm. The common biliary duct measures 4.1 mm in diameter. There is no ascites. The spleen is normal in echogenicity, measuring 9.2 cm in greatest dimension. The pancreas is unremarkable. The right kidney measures 10 x 4.7 x 4.1 cm. The left kidney measures 9.2 x 3.5 x 4.4 cm. There is no hydronephrosis, stones or renal masses. No perinephric fluid collections are identified. Normal vascular flow is noted in both kidneys. The abdominal aorta is normal. The IVC is unremarkable. CONCLUSION: Normal abdominal ultrasound. dd: 10/12/14 1147 <Electronically signed by Amie Owens MD> 10/12/14 1148 Radiology Report January 30, 2015 8:34am Glenn Fajardo MD completed [facility] CAT SCAN REPORT PATIENT NAME: CARMELA GENAO [id number] DATE OF : 1965 ATTENDING/ER PHYSICIAN: Donavan Garcia MD ER/ATTENDING PHYSICIAN: PRIMARY CARE PHYS: Karen Barreto APRN ADMITTING PHYSICIAN: CONSULTING PHYSICIAN: PROCEDURE DATE: 01/30/15 REPORT STATUS: Signed DICTATING PHYSICIAN: Glenn Fajardo MD REASON FOR EXAM: ABD PAIN PROCEDURE: CT ABD PEL WITH CONTRAST HISTORY: ABD PAIN COMPARISON: Pelvic ultrasound 10/12/2014. TECHNIQUE: Multiple contiguous axial CT images of the abdomen and pelvis were obtained following the administration of intravenous contrast. Sagittal and coronal reconstructions were obtained. FINDINGS: ABDOMEN: VISUALIZED THORAX: Linear densities at the left base reflecting atelectasis versus scarring. There are no significant pericardial or pleural effusions. LIVER: Unremarkable. GALL BLADDER: Unremarkable. PANCREAS: Unremarkable. SPLEEN: Unremarkable. ADRENAL GLANDS: Unremarkable. KIDNEYS: Symmetric uptake of contrast. 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 There is no evidence of bowel obstruction. The appendix is not really seen only no inflammatory changes in the right lower quadrant are identified. There is wall thickening versus nondistention present on both the early and delayed phase images at the gastroesophageal junction. VASCULATURE: Prominent parametrial blood vessels measuring up to 7 mm on the right, and 6 mm on the left LYMPH NODES: No abdominal or pelvic lymphadenopathy by CT criteria. PELVIS: URINARY BLADDER: Unremarkable. BONES: No lytic or blastic lesions. There is lumbar spondylosis centered at L5-S1 with mild bilateral foraminal narrowing OTHER: Trace amount of free fluid in the pelvis which may be physiologic. The uterus is retroflexed and retroverted with heterogeneous densities on both phases suggesting fibroids IMPRESSION: 1. Heterogeneous uterus. Prominent parametrial blood vessels may be seen in pelvic congestion syndrome 2. Small amount of free fluid in the pelvis which may be physiologic. 3. Wall thickening versus nondistention of the gastroesophageal junction should be correlated with upper GI symptoms and endoscopy as clinically warranted. 4. 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 This may portend significance should patient undergo hysterectomy or other pelvic surgeries. No hydronephrosis, or obstruction is identified dd: 01/30/15 0834 <Electronically signed by Glenn Fajardo MD> 01/30/15 0909 Radiology Report April 08, 2017 10:09am Amie marshall MD completed [facility] MAMMOGRAPHY REPORT PATIENT NAME: CARMELA GENAO [id number] DATE OF : 1965 ATTENDING/ER PHYSICIAN: Karen Barreto APRN ER/ATTENDING PHYSICIAN: PRIMARY CARE PHYS: Karen Barreto APRN ADMITTING PHYSICIAN: CONSULTING PHYSICIAN: PROCEDURE DATE: 04/08/17 REPORT STATUS: Signed DICTATING PHYSICIAN: Amie Owens MD REASON FOR EXAM: SCREENING PROCEDURE: Digital Mammo Bilat Screening CLINICAL HISTORY: 51-year-old woman comes in for her annual screening exam. COMPARISON: 2010. TECHNIQUE: Digital conventional 2-D views were obtained. [...] was discussed with a patient by the echocardiography technologist as part of the exam. The patient will receive a reminder phone call one week prior to her next screening appointment. In accordance with [place] Senate Bill 157 the following statement applies: [...] options may be right for you. dd: 04/08/17 1009 <Electronically signed by Amie Owens MD in OV> 04/08/17 1010 Radiology Report September 30, 2018 9:04am Amie Owens MD completed [facility] MAMMOGRAPHY REPORT PATIENT NAME: CARMELA GENAO [id number] DATE OF : 1965 ATTENDING/ER PHYSICIAN: Lavelle [...] was discussed with a patient by the echocardiography technologist as part of the exam. The patient will receive a reminder phone call one week prior to her next screening appointment. In accordance with [place] Senate Bill 157 the following statement applies: [...] signed by Amie Owens MD in OV> 09/30/18 09 Electrocardiogram August 11, 2019 11:22am Lavelle Gregory MD completed [facility] EKG PATIENT NAME: CARMELA GENAO MRN: [id number] DATE OF : 1965 ATTENDING PHYSICIAN: Lavelle Gregory MD PRIMARY CARE PHYS: Lavelle Gregory MD DICTATING PHYSICIAN: Lavelle Gregory MD REPORT STATUS: Signed Test Reason : Blood Pressure : / mmHG Vent. Rate : 067 BPM Atrial Rate : 067 BPM P-R Int : 208 ms QRS Dur : 076 ms QT Int : 430 ms P-R-T Axes : 061 069 054 degrees QTc Int : 454 ms Normal ECG Confirmed by Lavelle Gregory ([id number]) on 09/15/2019 8:26:45 PM Referred By: Lavelle Gregory Confirmed By:Lavelle Gregory 09/15/192025 Radiology Report October 06, 2019 8:29am Amie Owens MD completed [facility] MAMMOGRAPHY REPORT PATIENT NAME: CARMELA GENAO [id number] DATE OF : 1965 ATTENDING/ER PHYSICIAN: Lavelle [...] was discussed with a patient by the echocardiography technologist as part of the exam. The patient will receive a reminder phone call one week prior to her next screening appointment. In accordance with [place] Senate Bill 157 the following statement applies: [...] have a copy on file here at [facility]? No April 08, 2017 9:35am Pt has a Living Will? No September 042010 9:30am Do we have a copy on file here at [facility]? No April 08, 2017 9:35am Pt has a Power of [employer] [place]? No Curt matias 2010 9:30am Do we have a copy on file here at [facility]? 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 Encounters Encounter Location(s) Arrival/Admit Date Discharge /Depart Date Provider(s) Departed Physician/Provi koki Office Visit [facility]-CONV Misc Comp Pain location Conversion Medent Departed [facility]- June 06, 1994 12:00am June 06, 1994 Donavan Garcia MD Departed [facility]- June 26, 1994 12:00am June 26, 1994 Donavan Garcia MD Departed [facility]- October 08, 1994 12:00am October 08, 1994 Donavan Garcia MD Departed [facility]- October 22, 1994 12:00am October 22, 1994 Donavan Garcia MD Departed [facility]- January 09, 1995 12:00am January 10, 1995 Donavan Garcia MD Departed [facility]- August 13, 1995 12:00am August 13, 1995 Donavan Garcia MD Departed [facility]- February 23, 1996 12:00am February 23, 1996 Donavan Garcia MD Departed [facility]- June 09, 1996 12:00am June 09, 1996 Donavan Garcia MD Departed [facility]- September 14, 1996 12:00am September 15, 1996 Donavan Garcia MD Departed [facility]- November 22, 1996 12:00am November 22, 1996 Donavan Garcia MD Departed [facility]- January 27, 1997 12:00am January 27, 1997 Jo-Ann Jay MD Departed [facility]- December 13, 1997 12:00am December 13, 1997 Donavan Garcia MD [facility] [facility]- December 19, 1997 12:00am December 19, 1997 Gloria Camara MD Departed [facility]- January 27, 1998 12:00am January 27, 1998 Jo-Ann Jay MD Departed Referred [facility]-Referred Lab December 22, 1998 12:00am December 22, 1998 Donavan Garcia MD Departed [facility]-Outpatient Conversion January 19, 1999 12:00am January 19, 1999 Donavan Garcia MD Departed Referred [facility] Medical [facility]-Referred Lab February 07, 2000 12:00am February 07, 2000 Donavan aGrcia MD Departed Referred [facility] Medical [facility]-Referred Lab August 14, 2000 12:00am August 14, 2000 Donavan Garcia MD Departed Referred [facility]Referred [facility] December 15, 2000 12:00am December 15, 2000 Donavan Garcia MD Discharged Inpatient [facility] March 25, 2001 12:00am March 28, 2001 Joie Goyal MD Departed Referred [facility] Medical [facility]Referred [facility] May 14, 2001 12:00am May 14, 2001 Donavan Garcia MD Departed Clinical [facility]-Outpatient Conversion August 04, 2001 12:00am August 04, 2001 Jyotsna Gaytan MD Departed Clinical [facility]-Outpatient Conversion October 23, 2001 12:00am October 23, 2001 Jo-Ann Jay MD Departed Referred [facility]-Referred Lab May 17, 2002 12:00am May 17, 2002 Donavan Garcia MD Departed Referred [facility]Ref[facility] May 26, 2003 12:00am May 26, 2003 Donavan Garcia MD Departed Referred [facility]Referred Lab June 05, 2004 12:00am June 05, 2004 Donavan Garcia MD Departed Surgical Day Care [facility]-Ambulatory Surgery October 10, 2004 12:00am October 10, 2004 Michael Sanabria MD Departed Surgical Day Care [facility]-Medical and Surgical Unit October 16, 2004 12:00am October 17, 2004 Michael Sanabria MD Departed Referred [facility] Medical [facility]Referred [facility] June 06, 2005 12:00am June 06, 2005 Donavan Garcia MD Departed Clinical [facility]-Outpatient Conversion August 05, 2005 12:00am August 05, 2005 Donavan Garcia MD Departed Referred [facility] Medical [facility]Referred Lab July 21, 2006 12:00am July 21, 2006 Donavan Garcia MD Departed Clinical [facility]-Outpatient Conversion August 18, 2007 12:00am August 18, 2007 Donavan Garcia MD Departed Clinical [facility]-Outpatient Conversion May 20, 2008 12:00am May 20, 2008 NABEEL Jensen Departed Referred [facility] Medical [facility]Referred Lab August 02, 2008 12:00am August 02, 2008 Donavan Garcia MD Departed Clinical [facility] August 25, 2008 12:00am August 25, 2008 Donavan Garcia MD Departed Referred [facility] Medical [facility]-Referred Lab August 10, 2009 12:00am August 10, 2009 Donavan Garcia MD Departed Clinical [facility] September 12, 2009 12:00am September 12, 2009 Donavan Garcia MD Registered Referred [facility] Medical [facility]-Pathology August 20, 2010 8:41am Donavan Garcia MD Registered Referred [facility]-Pathology August 28, 2011 12:12pm NABEEL Ellsworth Registered Clinical [facility] September 25, 2011 9:29am NABEEL Ellsworth Departed Physician/Provi koki Office Visit [facility] SEWING MACHINE OPERATOR PAPER BAGS September 01, 2012 12:00am September 01, 2012 NABEEL Ellsworth Departed Physician/Provi koki Office Visit [facility] SEWING MACHINE OPERATOR PAPER BAGS October 29, 2012 12:00am October 29, 2012 Conversion [facility] Departed Physician/Provi koki Office Visit [facility] SEWING MACHINE OPERATOR PAPER BAGS December 03, 2012 12:00am December 03, 2012 Conversion [facility] Registered Referred [facility]-Pathology December 03, 2012 8:41am Donavan Garcia MD Registered Referred [facility] OBGYN December 03, 2012 2:35pm Donavan Garcia MD Departed Physician/Provi koki Office Visit [facility] October 29, 2013 12:00am October 29, 2013 Karen Barreto APRN Registered Referred [facility]-Referred Lab October 29, 2013 7:55pm Karen Barreto APRN Departed Physician/Provi koki Office Visit [facility] April 15, 2014 12:00am April 15, 2014 Karen Barreto APRN Departed Physician/Provi koki Office Visit [facility] September 21, 2014 12:00am September 21, 2014 Karen Barreto APRN Registered Referred [facility] September 21, 2014 7:58pm Karen Barreto APRN Departed Physician/Provi koki Office Visit [facility] October 12, 2014 12:00am October 12, 2014 Karen Barreto APRN Registered Clinical [facility] October 12, 2014 9:35am Karen Barreto APRN Departed Physician/Provi koki Office Visit [facility] SEWING MACHINE OPERATOR PAPER BAGS October 18, 2014 12:00am October 18, 2014 Conversion [facility] Departed Physician/Provi koki Office Visit [facility] SEWING MACHINE OPERATOR PAPER BAGS December 26, 2014 12:00am December 26, 2014 Conversion [facility] Departed Physician/Provi koki Office Visit [facility] SEWING MACHINE OPERATOR PAPER BAGS January 24, 2015 12:00am January 24, 2015 Conversion [facility] Registered Clinical [facility] January 30, 2015 6:58am Donavan Garcia MD Departed Physician/Provi koki Office Visit [facility] SEWING MACHINE OPERATOR PAPER BAGS March 06, 2015 12:00am March 06, 2015 Conversion [facility] Departed Physician/Provi koki Office Visit [facility] SEWING MACHINE OPERATOR PAPER BAGS September 07, 2015 12:00am September 07, 2015 Conversion [facility] Departed Physician/Provi koki Office Visit [facility] SEWING MACHINE OPERATOR PAPER BAGS December 09, 2016 12:00am December 09, 2016 Conversion [facility] Departed Physician/Provi koki Office Visit [facility] SEWING MACHINE OPERATOR PAPER BAGS December 17, 2016 12:00am December 17, 2016 Conversion [facility] Registered Referred [facility]-Pathology December 17, 2016 7:45pm Donavan Garcia MD Departed Physician/Provi koki Office Visit [facility] January 23, 2017 12:00am January 23, 2017 Karen Barreto APRN Departed Referred [facility] January 23, 2017 2:25pm January 23, 2017 2:26pm Karen Barreto APRN Departed Clinical [facility]- [facility] [place] April 08, 2017 9:32am April 08, 2017 9:33am Karen Barreto APRN Departed Physician/Provi koki Office Visit [facility] April 10, 2017 12:00am April 10, 2017 Conversion [facility] Departed Surgical Day Care [facility]-Surgical Services April 28, 2017 9:00am April 28, 2017 12:14pm Karely Davis MD Departed Physician/Provi koki Office Visit [facility] August 01, 2017 12:00am August 01, 2017 Estephania Gallo APRN Departed Referred [facility] August 01, 2017 3:39pm August 01, 2017 3:40pm Estephania Gallo APRN Departed Physician/Provi koki Office Visit [facility] July 07, 2018 12:00am July 07, 2018 Conversion [facility] Departed Clinical [facility] September 29, 2018 5:12pm September 29, 2018 5:13pm Lavelle Gregory MD Departed Physician/Provi koki Office Visit [facility] October 06, 2018 12:00am October 06, 2018 Conversion [facility] Departed Physician/Provi koki Office Visit [facility] SEWING MACHINE OPERATOR PAPER BAGS October 20, 2018 12:00am October 20, 2018 Conversion [facility] Registered Inpatient [facility]- April 27, 2019 5:27pm ATC Fatimah Ca Departed Clinical [facility] August 11, 2019 9:03am August 11, 2019 9:04am Lavelle Gregory MD Departed Physician/Provi koki Office Visit [facility] August 11, 2019 9:39am August 11, 2019 11:31am Lavelle Gregory MD Departed Clinical [facility] August 11, 2019 11:07am August 11, 2019 11:08am Lavelle Gregory MD Departed Clinical [facility] October 06, 2019 7:45am October 06, 2019 7:46am Lavelle Gregory MD Departed Physician/Provi koki Office Visit [facility] SEWING MACHINE OPERATOR PAPER BAGS October 19, 2019 10:16am October 19, 2019 10:41am Donavan Garcia MD Assessments No Assessments Information Available Family History Relationship Condition Age at Onset Recorded Date/T nelli Parent Dementia Unknown Cerebrovascular accident (CVA) Unknown Not Specified Malignant neoplasm of uterus Unknown Peripheral vascular disease Unknown Parent Arthritis Unknown Osteoporosis Unknown Functional Status Observation Response Date Recorded Living Situation With Family April 28, 2017 10:05am Goals Goals may be documented in an alternate section. 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 [facility] [address] Contact Info. Home Phone: Payer Policy Id Coverage Id Subscriber's Name Subscriber Id Effective Date Expiration Date [employer] [id number] CARMELA GENAO [id number] [employer] [place] [employer] STATE [id number] CARMELA GENAO [id number] [facility] [id number] CARMELA GENAO [id number] 2014 SELF PAY Self N/A Social History Smoking Status Status Date of Observation Never smoked tobacco (finding) October 19, 2019 10:26am Observation Status Observation Response Date of Response Alcohol Use No April 28, 2017 10:05am Substance/Street Drug Use No April 042016 10:05am Substance Use Treatment No April 10:05am substance use type does not use August 11, 2019 10:20am Smoking Status Never smoker October 19 10:26am Assigned Sex Female Vital Signs Vital Reading Result Reference Range Collection Date/Time Height 64.25 [in_i] January 23 11:05am Weight 48.53 kg January 23 11:05am Body Temperature 98.0 [degF] 97.6-99.6 January 23, 2017 11:05am Heart Rate 64 /min 60-100 January 23 11:05am Respiratory rate 16 /min 12-24 January 23, 2017 11:05am BP Systolic 126 mm[Hg] 100-140 January 23 11:05am BP Diastolic 65 mm[Hg] 50-85 January 23 11:05am BMI (Body Mass Index) 18.2 kg/m2 January 23, 2017 11:05am Height 64 [in_i] December 03 8:28am Weight 46.26 kg December 03 8:28am BP Systolic 104 mm[Hg] 100-140 Yadira 31st, 2 013 8:28am BP Diastolic 70 mm[Hg] 50-85 December 03 013 8:28am Height 64.25 [in_i] October 29, 2013 11:09am Weight 47.62 kg October 29, 2013 11:09am Heart Rate 60 /min 60-100 October 29, 2013 11:09am BP Systolic 110 mm[Hg] 100-140 October 29, 2013 11:09am BP Diastolic 72 mm[Hg] 50-85 October 29, 2013 11:09am BMI (Body Mass Index) 17.9 kg/m2 [facility] 2012 11:09am Height 64.25 [in_i] April 15, 2014 11:50am Weight 48.98 kg April 15, 2014 11:50am Body Temperature 98.1 [degF] 97.6-99.6 April 15, 2014 11:50am Heart Rate 54 /min 60-100 April 15, 2014 11:50am Respiratory rate 16 /min -April 15, 2014 11:50am Oxygen saturation by Pulse oximetry 100 % 95-100 April 15, 2014 11:5 0am BP Systolic 136 mm[Hg] 100-140 April 15, 2014 11:50am BP Diastolic 63 mm[Hg] 50-85 April 15, 2014 11:50am BMI (Body Mass Index) 18.4 kg/m2 April 032013 11:50am Height 64.25 [in_i] September 21, 2014 5:47pm Weight 49.89 kg September 21, 2014 5:47pm Body Temperature 98.3 [degF] 97.6-99.6 September 212013 5:47pm Heart Rate 56 /min 60-100 September 21, 2014 5:47pm Respiratory rate 16 /min -September 212013 5:47pm BP Systolic 143 mm[Hg] 100-140 September 21, 2014 5:47pm BP Diastolic 57 mm[Hg] 50-85 September 21, 2014 5:47pm BMI (Body Mass Index) 18.7 kg/m2 [facility] 2013 5:47pm Height 64 [in_i] October 18, 2014 3:11pm Weight 49.16 kg October 18, 2014 3:11pm BP Systolic 120 mm[Hg] 100-140 October 18, 2014 3:11pm BP Diastolic 80 mm[Hg] 50-85 October 18, 2014 3:11pm BMI (Body Mass Index) 18.6 kg/m2 [facility] 2013 3:11pm Height 64 [in_i] January 24 5 3:57pm Weight 49.89 kg January 24 5 3:57pm BP Systolic 122 mm[Hg] 100-140 January 24 5 3:57pm BP Diastolic 78 mm[Hg] 50-85 January 24 5 3:57pm BMI (Body Mass Index) 18.9 kg/m2 January 24, 2015 3:57pm Height 64 [in_i] September 07, 2 015 8:58am Weight 48.53 kg September 07, 2 015 8:58am BP Systolic 118 mm[Hg] 100-140 September 07, 2 015 8:58am BP Diastolic 70 mm[Hg] 50-85 September 07, 2 015 8:58am BMI (Body Mass Index) 18.4 kg/m2 [facility] 2014 8:58am Height 64 [in_i] December 17, 2016 2:07pm Weight 49.44 kg December 17, 2016 2:07pm BP Systolic 128 mm[Hg] 100-140 December 17, 2016 2:07pm BP Diastolic 78 mm[Hg] 50-85 December 17, 2016 2:07pm BMI (Body Mass Index) 18.7 kg/m2 [facility] 2016 2:07pm Height 64.25 [in_i] April 10, 2017 9:15am Weight 48.53 kg April 10, 2017 9:15am Body Temperature 97.0 [degF] 97.6-99.6 April 10, 2 017 9:15am Heart Rate 66 /min 60-100 April 10, 2017 9:15am BP Systolic 115 mm[Hg] 100-140 April 10, 2017 9:15am BP Diastolic 64 mm[Hg] 50-85 April 10, 2017 9:15am BMI (Body Mass Index) 18.2 kg/m2 April 102016 9:15am Height 64 [in_i] April 28, 2017 11:04am Weight 48.53 kg April 28, 2017 11:04am Body Temperature 98.0 [degF] 97.6-99.6 April 28, 2017 11:04am Heart Rate 59 /min 60-100 April 28, 2017 12:12pm Respiratory rate 16 /min 12-April 28, 2017 12:12pm Oxygen saturation by Pulse oximetry 95 % 95-100 April 28, 2017 12:1 2pm BP Systolic 121 mm[Hg] 100-140 April 28, 2017 12:12pm BP Diastolic 88 mm[Hg] 50-85 April 28, 2017 12:12pm BMI (Body Mass Index) 18.3 kg/m2 April 042016 11:04am Height 64.25 [in_i] August 01, 2017 9:38am Weight 47.62 kg August 01, 2017 9:38am Body Temperature 98.3 [degF] 97.6-99.6 July 052016 9:38am Heart Rate 60 /min 60-100 August 01, 2017 9:38am Respiratory rate 16 /min -July 052016 9:38am BP Systolic 128 mm[Hg] 100-140 August 01, 2017 9:38am BP Diastolic 74 mm[Hg] 50-85 August 01, 2017 9:38am BMI (Body Mass Index) 17.9 kg/m2 2016 9:38am Height 64.25 [in_i] July 07, 2018 4:42pm Weight 48.08 kg July 07, 2018 4:42pm Body Temperature 98.5 [degF] 97.6-99.6 July 072017 4:42pm Heart Rate 64 /min 60-100 July 07, 2018 4:42pm Respiratory rate 16 /min -July 072017 4:42pm BP Systolic 114 mm[Hg] 100-140 July 07, 2018 4:42pm BP Diastolic 72 mm[Hg] 50-85 July 07, 2018 4:42pm BMI (Body Mass Index) 18.1 kg/m2 2017 4:42pm Height 64 [in_i] August 11 10:02am Weight 48.98 kg August 11 10:02am Body Temperature 98.6 [degF] 97.6-99.6 August 10:02am Heart Rate 76 /min 60-100 August 11 10:02am Respiratory rate 16 /min 12-August 10:02am BP Systolic 124 mm[Hg] 100-140 August 11 10:02am BP Diastolic 78 mm[Hg] 50-85 August 11 10:02am BMI (Body Mass Index) 18.5 kg/m2 [facility] 2018 10:02am Height 64 [in_i] October 19, 2019 10:21am Weight 48.30 kg October 19, 2019 10:21am Heart Rate 64 /min 60-100 October 19, 2019 10:21am Respiratory rate 16 /min -October 192018 10:21am BP Systolic 130 mm[Hg] 100-140 October 19, 2019 10:21am BP Diastolic 74 mm[Hg] 50-85 October 19, 2019 10:21am BMI (Body Mass Index) 18.3 kg/m2 [facility] 2018 10:21am
--- OUTSIDE RECORDS SUMMARY | 2023-05-23 11:30 | XMS_ITS | Continuity of Care Document ---
Author Name [facility] Address [address] [place] [address] Organization [facility] Address [address] [place] [address] Care Team Providers Care Magician Helper Name Role Phone Lavelle Gregory Primary Care Physician Lavelle Gregory Attending Physician Allergies, Adverse Reactions, [...] 2018 Lichen sclerosus et atrophicus August 01 Inactive/Resolved Problems Medical Problem Onset Date Status Right lower quadrant abdominal pain January 24 Resolved Excessive bleeding in premenopausal period Novem 2014 Resolved Uterine leiomyoma October 18, 2014 Resolved Cyst of ovary October 18, 2014 Resolved Procedures Procedure Date Status Mike Mammo Bilat Scrn Panel November 28, 2020 act clarisa Relevant Diagnostic Tests and/or Laboratory Data Laboratory [...] September 12, 2020 1:48pm 93 U/L 38-126 Chief Complaint and Reason for Visit Encounter Admit Date Chief Complaint Reason for V isit Departed Clinical November 28, 2020 5:25pm Screen ing for breast cancer Hospital Discharge Instructions No [...] Cholecalciferol (Vitamin D3) 50 MCG ORAL DAILY Novem2019 Active Encounters Encounter Facility Location Admit/Visit Date Discharge/Departure Date Attending Provider Departed Clinical [facility] DI [facility] November 28, 2020 5:25pm November 28, 2020 5:26pm Lavelle Gregoyr Departed Referred [facility] Lab [facility] September 12, 2020 1:34pm September 12, 2020 1:35pm Lavelle Gregory Departed Physician/Pr ovider Office Visit [facility] September 12, 2020 12:46pm September 12, 2020 1:52pm Lavelle Gregory Functional Status Query Response Date Recorded Comment Ambulation Ability Independent September 12, 2020 1:14 pm Immunizations Immunization Name Date Given Type Influenza Split Virus 3YR Older October 06, 2007 Historical Tdap October 29, 2013 Historical [facility]ingles) [facility] Zoster (shingles) Recomb Vac (Shingrix) August [...] 60-100 September 12 1:03pm Respiration 16 RPM 12-24 September 12 1:03pm Blood [facility] 126 100-[facility] Blood Pressure Diastolic 78 50-85 Sep [facility] 1:03pm Body Mass Index 17.5 September 12, 2020 1:03pm
--- OUTSIDE RECORDS SUMMARY | 2023-05-23 11:30 | XMS_ITS | Continuity of Care Document ---
Author Name [facility] Address [address] [place] [address] Organization [facility] Address [address] [place] [address] Care Team Providers Care Dial Screw Assembler Name Role Phone Lavelle Gregory Primary Care [...] V isit Departed Clinical August 11, 2019 11:07am EKG Hospital Discharge Instructions No known hospital discharge [...] Date Discharge/Departure Date Attending Provider Departed Clinical [facility] August 11, 2019 11:07am August 11, 2019 11:08am Lavelle Gregory Departed Physician/Pr ovider Office Visit [facility] August 11, 2019 9:39am August 11, 2019 11:31am Lavelle Gregory Departed Clinical [facility] LAB [facility] August 11, 2019 9:03am August 11, 2019 9:04am Lavelle Gregory Registered Inpatient [facility] April 27, 2019 5:27pm Fatimah Penaloza Departed Physician/Pr ovider Office Visit [facility] LABORATORY SPECIALIST October 20, 2018 12:00am October 20, 2018 Gato Oshea Departed Physician/Pr ovider Office Visit [facility] October 06, 2018 12:00am October 06, 2018 Medent, Conversion Departed Clinical [facility] DI [facility] [place] September 29, 2018 5:12pm September 29, 2018 [...] Covered Republican Id Relationship Subscriber Subscriber Id [employer] Carmela Isaac [id number] Self/Same as Patient Carmela Isaac [id number] [facility] [employer] Carmela Fulleri [id number] Self/Same as Patient Carmela Isaac [id number] [facility] [employer] Carmela Fulleri [id number] Self/Same as Patient Carmela Isaac [id number] SELF PAY Personal Plan of Care No [...]
--- OUTSIDE RECORDS SUMMARY | 2023-05-23 11:31 | XMS_ITS | Continuity of Care Document ---
Author Name Unknown Address [address] [place] [address] Phone [facility] Address [address] [place] [address] Phone Care Team Providers Care Area Field Manager Name Role Phone Lavelle Gregory Primary Care Provider UnavailLavelle Ewing Attending Provider Unavailable Lavelle Gregory Primary Care [...] August 11, 2019 10:13am for two weeks Problems Active Problems Medical Problem Onset Date [...] Result Comment Performing Site White Blood Count August 11, 2019 9:18am 6.28 1000/mm3 4.8-10.8 MAIN LAB, [address] [place] [address] [id number] Red Blood Count August 11, 2019 9:18am 4.85 M/mm3 4.20-5.40 MAIN LAB, [address] [place] [address] 21527 Hemoglobin August 11, 2019 9:18am 14.7 g/dL 12.0-16.0 MAIN LAB, [address] [place] [address] 51830 Hematocrit August 11, 2019 9:18am 46.1 % 37-47 MAIN LAB, [address] [place] [address] 17067 Mean Corpuscular Volume August 11, 2019 9:18am 95.1 fL 81.0-99.0 MAIN LAB, [address] [place] [address] 17442 Mean Corpuscular Hemoglobin August 11, 2019 9:18am 30.3 pg 27-31 MAIN LAB, [address] [place] [address] 91426 Mean Corpuscular Hemoglobin Concent August 11, 2019 9:18am 31.9 g/dL 33-37 MAIN LAB, [address] [place] [address] 17621 Red Cell Distribution Width August 11, 2019 9:18am 12.8 % 11.5-14.5 MAIN LAB, [address] [place] [address] 93220 Platelet Count August 11, 2019 9:18am 290 1000/mm3 140-440 MAIN LAB, [address] [place] [address] 56624 Mean Platelet Volume August 11, 2019 9:18am 11.0 fL 7.4-10.4 MAIN LAB, [address] [place] [address] 58686 Sodium Level August 11, 2019 9:18am 142 mmol/L 137-145 MAIN LAB, [address] [place] [address] 71743 Potassium Level August 11, 2019 9:18am 4.2 mmol/L 3.6-5.0 MAIN LAB, [address] [place] [address] Chloride Level August 11, 2019 9:18am 103 mmol/L 98-107 MAIN LAB, [address] [place] [address] Carbon Dioxide Level August 11, 2019 9:18am 32 mmol/L 22-30 MAIN LAB, [address] [place] [address] Anion Gap August 11, 2019 9:18am 7 7-16 MAIN LAB, [address] [place] [address] Blood Urea Nitrogen August 11, 2019 9:18am 12 mg/dL 7-17 MAIN LAB, [address] [place] [address] Creatinine August 11, 2019 9:18am 0.58 mg/dL 0.52-1.04 MAIN LAB, [address] [place] [address] Glomerular Filtration Rate Calc August 11, 2019 9:18am > 60 mL/min >60.0 MAIN LAB, [address] [place] [address] Glucose Level August 11, 2019 9:18am 85 mg/dL 70-100 MAIN LAB, [address] [place], [place] [address] Calcium Level August 11, 2019 9:18am 9.4 mg/dL 8.4-10.2 MAIN LAB, [address] [place] [address] Calcium Adjusted for Albumin August 11, 2019 9:18am 9.2 mg/dL 8.4-10.2 MAIN LAB, [address] [place], [place] [address] Total Bilirubin August 11, 2019 9:18am 0.7 mg/dL 0.2-1.3 MAIN LAB, [address] [place], [place] [address] Aspartate Amino Transf (AST/SGOT) August 11, 2019 9:18am 28 U/L 14-36 MAIN LAB, [address] [place], [place] [address] Alanine Aminotransferase (ALT/SGPT) August 11, 2019 9:18am 25 U/L 9-52 MAIN LAB, [address] [place], [place] [address] Total Protein August 11, 2019 9:18am 7.4 g/dL 6.3-8.2 MAIN LAB, [address] [place], [place] [address] Albumin August 11, 2019 9:18am 4.5 g/dL 3.5-5.0 MAIN LAB, [address] [place] [address] 48184 Cholesterol Level August 11, 2019 9:18am 118 mg/dL 59-199 MAIN LAB, [address] [place] [address] 25156 HDL Cholesterol August 11, 2019 9:18am 75 mg/dL 40-60 The National Cholesterol Education Program (NCEP) has set the following guidelines (reference values) for cholesterol, HDL:Low HDL: <40 mg/dLNormal: 40-60 mg/dLDesirab le: >60 mg/dL MAIN LAB, [address] [place] [address] 42587 LDL Cholesterol August 11, 2019 9:18am 27.0 mg/dL 0-129 MAIN LAB, [address] [place] [address] 90020 VLDL Cholesterol August 11, 2019 9:18am 16.0 mg/dL 0-32 MAIN LAB, [address] [place] [address] 81821 Cholesterol/HDL Ratio August 11, 2019 9:18am 1.57 0-3.9 MAIN LAB, [address] [place] [address] 48743 Triglycerides Level August 11, 2019 9:18am 80 mg/dL 0-149 MAIN LAB, [address] [place] [address] 86665 Alkaline Phosphatase August 11, 2019 9:18am 79 U/L 38-126 MAIN LAB, [address] [place], [place] [address] Diagnostic Imaging Reports Report Dictated Date/Time Dictated By Status Radiology Report September 30, 2018 9:04am Amie Owens MD completed [facility] MAMMOGRAPHY REPORT PATIENT NAME: CARMELA ISAAC [id number] DATE OF : 1965 ATTENDING/ER PHYSICIAN: Lavelle [...] was discussed with a patient by the medical technologist prn as part of the exam. The patient will receive a reminder phone call one week prior to her next screening appointment. In accordance with [place] Senate Bill 157 the following statement applies: [...] Date Discharge /Depart Date Provider(s) Departed Clinical [facility]-MARKEL [place] In [place] September 29, 2018 5:12pm September 29, 2018 5:13pm Lavelle Gregory MD Departed Physician/Provi k[facility] October 06, 2018 12:00am October 06, 2018 Conversion Med[facility] Departed Physician/[facility]vi k[facility] [employer] October 20, 2018 12:00am October 20, 2018 Conversion Med[employer] Registered Inpatient [facility]- April 27, 2019 5:27pm CAT Fatimah Penaloza Departed Clinical [facility] August 11, 2019 9:03am August 11, 2019 9:04am Lavelle Gregory MD Departed Physician/Provi koki Office Visit [facility] August 11, 2019 9:39am August 11, 2019 11:31am Lavelle Gregory MD [facility] August 11, 2019 11:07am August 11, 2019 11:08am Lavelle Gregory MD Assessments No Assessments Information Available Family History Relationship Condition Age at Onset Recorded Date/T nelli Parent Dementia Unknown Cerebrovascular accident (CVA) Unknown Not Specified Malignant neoplasm of uterus Unknown Peripheral vascular disease Unknown Parent Arthritis Unknown Osteoporosis Unknown Functional Status No Functional Status information available Goals No Goals Information Available Immunizations Immunization Event Date Not Given Reason Dose Number Residential Sales Rep Lot Number Vaccine Information Statement (VIS) Detail Influenza Split Virus 3YR Older October 06, 2007 VIS not given Tdap October 29, 2013 VIS not given Zoster (shingles) Recomb Vac (Shingrix) July 07, 2018 VIS not given Zoster (shingles) Recomb Vac (Shingrix) August 11, 2019 [id number] VIS not given Mental Status No Mental Status Information Available Medical Equipment No Medical Equipment Information available Insurance Providers Guarantor CARMELA ISAAC Address [address] [place] [address] Contact Info. Home Phone: Payer Policy Id Coverage Id Subscriber's Name Subscriber Id Effective Date Expiration Date [employer] [id number] Carmela Isaac [id number] [employer] OUT OF STATE [id number] 1 Carmela Isaac [id number] [employer] [place] [id number] Carmela Isaac [id number] SELF PAY Self N/A Social History [...] 10:02am BMI (Body Mass Index) 18.5 kg/m2 Octobe r 2018 10:02am
--- OUTSIDE RECORDS SUMMARY | 2023-05-23 11:31 | XMS_ITS | Continuity of Care Document ---
Author Name Unknown Address [address] [place] [address] Phone [facility] Address [address] [place] [address] Phone Care Team Providers Care Jointer Operator Name Role Phone Donavan Garcia Attending Provider [phone] Herson Carbone Primary Care Provider [phone] Jo-Ann Jay Attending Provider [phone] Gloria Camara Attending Provider [phone] Joie Goyal Attending Provider Jyotsna Gaytan Attending Provider [phone] Michael Sanabria Attending Provider Unavailable Solitario Hewitt Attending Provider Monica Eason Attending Provider PCP, Not Given Primary Care Provider Unavailabl e Karen Barreto Attending Provider [phone] Karen Barreto Primary Care Provider [phone] Karely Davis Elena Attending Provider [phone] Estephania Gallo Attending Provider Lavelle Gregory Primary Care Provider Lavelle Gregory [...] c ompleted Digital Mammo Bilat Screening September 29, 8 completed Colonoscopy April 28, 2017 10:30am [...] e Digital Mammo Bilat Screening September 25 completed COMP SCREEN MAMMOGRAM ADD-ON September 25, 2011 active Relevant Diagnostic Tests and/or Laboratory Data Laboratory Results Test Date/Time Result Interpretation Reference Range Result Comment Performing Site White Blood Count 3.74 1000/mm3 4.8-10.8 MAIN LAB, [address] [place] [address] 22322 White Blood Count 8.68 1000/mm3 4.8-10.8 White Blood Count 6.28 1000/mm3 4.8-10.8 MAIN LAB, [address] [place] [address] 45901 White Blood Count 6.94 1000/mm3 4.8-10.8 Red Blood Count 4.72 M/mm3 4.20-5.40 Red Blood Count 4.42 M/mm3 4.20-5.40 Red Blood Count 4.57 M/mm3 4.20-5.40 MAIN LAB, [address] [place] [address] 38711 Red Blood Count 4.85 M/mm3 4.20-5.40 MAIN LAB, [address] [place] [address] 39208 Hemoglobin 14.7 g/dL 12.0-16.0 MAIN LAB, [address] [place] [address] 05324 Hemoglobin 14.6 g/dL 12.0-16.0 Hemoglobin 13.8 g/dL 12.0-16.0 Hemoglobin 13.9 g/dL 12.0-16.0 MAIN LAB, [address] [place] [address] 29423 Hematocrit 44.8 % 37-47 Hematocrit 42.7 % 37-47 MAIN LAB, [address] [place] [address] 54582 Hematocrit 41.3 % 37-47 Hematocrit 46.1 % 37-47 MAIN LAB, [address] [place] [address] 17024 Mean Corpuscular Volume 93.4 fL 81.0-99.0 Mean Corpuscular Volume 94.9 fL 81.0-99.0 Mean Corpuscular Volume 93.4 fL 81.0-99.0 MAIN LAB, [address] [place] [address] 51834 Mean Corpuscular Volume 95.1 fL 81.0-99.0 MAIN LAB, [address] [place] [address] 09282 Mean Corpuscular Hemoglobin 30.9 pg 27-31 Mean Corpuscular Hemoglobin 31.2 pg 27-31 Mean Corpuscular Hemoglobin 30.3 pg 27-31 MAIN LAB, [address] [place] [address] 31648 Mean Corpuscular Hemoglobin 30.4 pg 27-31 MAIN LAB, [address] [place] [address] 60306 Mean Corpuscular Hemoglobin Concent 31.9 g/dL 33-37 MAIN LAB, [address] [place] [address] 45968 Mean Corpuscular Hemoglobin Concent 33.4 g/dL 33-37 Mean Corpuscular Hemoglobin Concent 32.6 g/dL 33-37 MAIN LAB, [address] [place] [address] 62434 Mean Corpuscular Hemoglobin Concent 32.6 g/dL 33-37 Red Cell Distribution Width 12.8 % 11.5-14.5 MAIN LAB, [address] [place] [address] 39070 Red Cell Distribution Width 12.8 % 11.5-14.5 MAIN LAB, [address] [place] [address] 08576 Red Cell Distribution Width 13.4 % 11.5-14.5 Red Cell Distribution Width 13.3 % 11.5-14.5 Platelet Count 290 1000/mm3 140-440 MAIN LAB, [address] [place] [address] 23864 Platelet Count 241 1000/mm3 140-440 MAIN LAB, [address] [place] [address] 97087 Platelet Count 309 1000/mm3 140-440 Platelet Count 255 1000/mm3 140-440 Mean Platelet Volume 11.0 fL 7.4-10.4 MAIN LAB, [address] [place] [address] 74742 Mean Platelet Volume 10.8 fL 7.4-10.4 Mean Platelet Volume 10.5 fL 7.4-10.4 MAIN LAB, [address] [place] [address] 82260 Mean Platelet Volume 10.4 fL 7.4-10.4 Neutrophils [...] Level 142 mmol/L 137-145 MAIN LAB , [address] [place] [address] 95557 Sodium Level 143 mmol/L 137-145 MAIN LAB , [address] [place] [address] Sodium Level 142 mmol/L 137-145 Potassium Level 4.2 mmol/L 3.6-5.0 Potassium Level 4.1 mmol/L 3.6-5.0 MAIN LAB, [address] [place] [address] 97607 Potassium Level 4.2 mmol/L 3.6-5.0 MAIN LAB, [address] [place] [address] 04560 Potassium Level 4.1 mmol/L 3.6-5.0 Chloride Level 101 mmol/L 98-107 Chloride Level 103 mmol/L 98-107 Chloride Level 103 mmol/L 98-107 MAIN LAB, [address] [place] [address] 89650 Chloride Level 104 mmol/L 98-107 MAIN LAB, [address] [place] [address] 70268 Carbon Dioxide Level 28 mmol/L 22-30 Carbon Dioxide Level 32 mmol/L 22-30 MAIN LAB, [address] [place] [address] 42848 Carbon Dioxide Level 29 mmol/L 22-30 Carbon Dioxide Level 28 mmol/L 22-30 MAIN LAB, [address] [place] [address] 88873 Anion Gap 11 7-16 MAIN LAB, [address] [place] [address] 82124 Anion Gap 15 5-15 Anion Gap 7 7-16 MAIN LAB, [address] [place] [address] 67123 Anion Gap 11 7-16 Blood Urea Nitrogen 10 mg/dL 05-19 MAIN LAB, [address] [place] [address] 73278 Blood Urea Nitrogen 12 mg/dL 7 MAIN LAB, [address] [place] [address] 51604 Blood Urea Nitrogen 14 mg/dL 7 Blood Urea Nitrogen 13 mg/dL 7 Creatinine 0.6 mg/dL 0.52-1.04 MAIN LAB, [address] [place] [address] 56654 Creatinine 0.65 mg/dL 0.52-1.04 Creatinine 0.58 mg/dL 0.52-1.04 MAIN LAB , [address] [place] [address] 22867 Creatinine 0.63 mg/dL 0.52-1.04 Glomerular Filtration Rate Calc > 60 mL/min >60.0 MAIN LAB, [address] [place] [address] 23851 Glomerular Filtration Rate Calc > 60 mL/min Glomerular Filtration Rate Calc > 60 mL/min Glomerular Filtration Rate Calc > 60 mL/min MAIN LAB, [address] [place] [address] 92694 Glucose Level 83 mg/dL 65-108 Glucose Level 85 mg/dL 70-100 MAIN LAB, [address] [place] [address] 30966 Glucose Level 83 mg/dL 70-100 MAIN LAB, [address] [place] [address] 30122 Glucose Level 81 mg/dL 70-100 Calcium Level 9.4 mg/dL 8.4-10.2 MAIN LA B, [address] [place] [address] 43219 Calcium Level 9.1 mg/dL 8.4-10.2 Calcium Level 8.8 mg/dL 8.4-10.2 MAIN LA B, [address] [place] [address] 46178 Calcium Level 9.4 mg/dL 8.4-10.2 Calcium Adjusted for Albumin 8.9 mg/dL 8.4-10.2 MAIN LAB, [address] [place] [address] 98507 Calcium Adjusted for Albumin 9.3 mg/dL 8.4-10.2 Calcium Adjusted for Albumin 9.2 mg/dL 8.4-10.2 MAIN LAB, [address] [place] [address] 79870 Calcium Adjusted for Albumin 9.7 mg/dL 8.4-10.2 Total Bilirubin 0.6 mg/dL 0.2-1.3 Total Bilirubin 0.6 mg/dL 0.2-1.3 MAIN LAB, [address] [place] [address] 03647 Total Bilirubin 0.7 mg/dL 0.2-1.3 MAIN LAB, [address] [place] [address] 15469 Total Bilirubin 0.2 mg/dL 0.2-1.3 Aspartate Amino Transf (AST/SGOT) 25 U/L 14-36 Aspartate Amino Transf (AST/SGOT) 28 U/L 14-36 MAIN LAB, [address] [place] [address] 13196 Aspartate Amino Transf (AST/SGOT) 23 U/L 14-36 MAIN LAB, [address] [place] [address] 21735 Aspartate Amino Transf (AST/SGOT) 21 U/L 14-36 Alanine Aminotransfer ase (ALT/SGPT) 34 U/L 9-52 Alanine Aminotransfer ase (ALT/SGPT) 25 U/L 9-52 MAIN LAB, [address] [place] [address] 11181 Alanine Aminotransfer ase (ALT/SGPT) 26 U/L 9-52 Alanine Aminotransfer ase (ALT/SGPT) 31 U/L 9-52 MAIN LAB, [address] [place] [address] 12372 Total Protein 6.9 g/dL 6.3-8.2 Total Protein 6.9 g/dL 6.3-8.2 Total Protein 7.4 g/dL 6.3-8.2 MAIN LAB, [address] [place] [address] 98091 Total Protein 7.1 g/dL 6.3-8.2 MAIN LAB, [address] [place] [address] 55111 Albumin 3.9 g/dL 3.5-5.0 Albumin 4.2 g/dL 3.5-5.0 MAIN LAB, [address] [place] [address] 29054 Albumin 4.5 g/dL 3.5-5.0 MAIN LAB, [address] [place] [address] 61678 Albumin 4.1 g/dL 3.5-5.0 Cholesterol Level 100 mg/dL 59-199 MAIN LAB, [address] [place] [address] 01707 Cholesterol Level 93 mg/dL 59-199 Cholesterol Level 118 mg/dL 59-199 MAIN LAB, [address] [place] [address] 44492 HDL Cholesterol 63 mg/dL 40-60 The National Cholesterol Education Program (NCEP) has set the following guidelines (reference values) for cholesterol, HDL:Low HDL: <40 mg/dLNormal: 40-60 mg/dLDesirable : >60 mg/dL HDL Cholesterol 75 mg/dL 40-60 The National Cholesterol Education Program (NCEP) has set the following guidelines (reference values) for cholesterol, HDL:Low HDL: <40 mg/dLNormal: 40-60 mg/dLDesirable : >60 mg/dL MAIN LAB, [address] [place] [address] 32327 HDL Cholesterol 58 mg/dL 40-60 The National Cholesterol Education Program (NCEP) has set the following guidelines (reference values) for cholesterol, HDL:Low HDL: <40 mg/dLNormal: 40-60 mg/dLDesirable : >60 mg/dL MAIN LAB, [address] [place] [address] 79879 LDL Cholesterol 27.0 mg/dL 0-129 MAIN LAB, [address] [place] [address] 77690 LDL Cholesterol 27.4 mg/dL 0-129 MAIN LAB, [address] [place] [address] 57381 LDL Cholesterol 21.8 mg/dL 0-129 VLDL Cholesterol 14.6 mg/dL 0-32 MAIN LAB, [address] [place] [address] 34819 VLDL Cholesterol 8.2 mg/dL 0-32 VLDL Cholesterol 16.0 mg/dL 0-32 MAIN LAB, [address] [place] [address] 97451 Cholesterol/H DL Ratio 1.72 0-3.9 MAIN LAB, [address] [place] [address] 38311 Cholesterol/H DL Ratio 1.57 0-3.9 MAIN LAB, [address] [place] [address] 81945 Cholesterol/H DL Ratio 1.47 0-3.9 Triglycerides Level 73 mg/dL 0-149 MAIN LAB, [address] [place] [address] 41424 Triglycerides Level 80 mg/dL 0-149 MAIN LAB, [address] [place] [address] 09031 Triglycerides Level 41 mg/dL 0-149 Alkaline Phosphatase 79 U/L 38-126 MAIN LAB, [address] [place] [address] 23368 Alkaline Phosphatase 61 U/L 38-126 Alkaline Phosphatase 74 U/L 38-126 MAIN LAB, [facility] [address]88 Alkaline Phosphatase 54 U/L 38-126 Lipase 116 U/L 23-300 Thyroid Stimulating Hormone (TSH) 0.987 mlU/L 0.47-4.68 Hepatitis C Antibody Negative NEGAT Reference Range: NegativeTest Performed by:THE [address] [address]Isy Director: Glenn Rosario MD , Ph D [facility] Chlamydia trachomatis Amplified DNA See comments No Chlamydia trachomatis DNA detected by analytical manager mediated amplification. Neisseria gonorrhoeae Amplified DNA See comments No Neisseria gonorrhoeae DNA detected by analytical manager mediated amplification. Test Performed by:[address] [id number] Director: Eleazar Thornton M.D. Diagnostic Imaging Reports Report Dictated Date/Time Dictated By Status Radiology Report September 25, 2011 10:20am Jomar Mai MD completed [facility] MAMMOGRAPHY REPORT PATIENT NAME: CARMELA GENAO [id number] DATE OF : 1965 ATTENDING/ER PHYSICIAN: NABEEL [...] 12, 2014 10:41am Amie Owens MD completed [facility] ULTRASOUND REPORT PATIENT NAME: CARMELA GENAO [id number] DATE OF : 1965 ATTENDING/ER PHYSICIAN: Karen [...] 12, 2014 11:47am Amie Owens MD completed [facility] ULTRASOUND REPORT PATIENT NAME: CARMELA GENAO [id number] DATE OF : 1965 ATTENDING/ER PHYSICIAN: Karen [...] 30, 2015 8:34am Glenn Fajardo MD completed [facility] CAT SCAN REPORT PATIENT NAME: CARMELA GENAO [id number] DATE OF : 1965 ATTENDING/ER PHYSICIAN: Donavan [...] 08, 2017 10:09am Amie marshall MD completed [facility] MAMMOGRAPHY REPORT PATIENT NAME: CARMELA GENAO [id number] DATE OF : 1965 ATTENDING/ER PHYSICIAN: Karen [...] was discussed with a patient by the senior nuclear medicine technologist as part of the exam. The patient will receive a reminder phone call one week prior to her next screening appointment. In accordance with [place] Senate Bill 157 the following statement applies: [...] 30, 2018 9:04am Amie Owens MD completed [facility] MAMMOGRAPHY REPORT PATIENT NAME: CARMELA GENAO [id number] DATE OF : 1965 ATTENDING/ER PHYSICIAN: Lavelle [...] was discussed with a patient by the senior nuclear medicine technologist as part of the exam. The patient will receive a reminder phone call one week prior to her next screening appointment. In accordance with [place] Senate Bill 157 the following statement applies: [...] 11, 2019 11:22am Lavelle Gregory MD completed [facility] EKG PATIENT NAME: CARMELA GENAO MRN: [id number] DATE OF : 1965 ATTENDING PHYSICIAN: Lavelle [...] 06, 2019 8:29am Amie Owens MD completed [facility] MAMMOGRAPHY REPORT PATIENT NAME: CARMELA GENAO [id number] DATE OF : 1965 ATTENDING/ER PHYSICIAN: Lavelle [...] was discussed with a patient by the senior nuclear medicine technologist as part of the exam. The patient will receive a reminder phone call one week prior to her next screening appointment. In accordance with [place] Senate Bill 157 the following statement applies: [...] options may be right for you. dd: 10/06/1929 <Electronically signed by Amie Owens MD in [place]> 10/06/19 0830 Advance Directives Advance Directive Response Recorded Date/ Time Does patient have an Advanced Directive? No September 25, 2011 9:30am Do we have a copy on file here at [facility]? No April 08, 2017 9:35am Pt has a Living Will? No September 042010 9:30am Do we have a copy on file here at [facility]? No April 08, 2017 9:35am Pt has a Power of Locker Plant Attendant? No Curt matias 2010 9:30am Do we have a copy on file here at [facility]? No April 08, 2017 9:35am Chief Complaint [...] EKG Essential hypertension Screening for breast cancer Encounters Encounter Location(s) Arrival/Admit Date Discharge /Depart Date Provider(s) Departed Physician/Provi koki Office Visit [facility]-CONV Misc Comp Pain location Conversion Medent Departed [facility]- June 06, 1994 12:00am June 06, 1994 Donavan Garcia MD Departed [facility]- June 26, 1994 12:00am June 26, 1994 Donavan Garcia MD Departed [facility]- October 08, 1994 12:00am October 08, 1994 Donavan Garcia MD Departed [facility]- October 22, 1994 12:00am October 22, 1994 Donavan Garcia MD Departed [facility]- January 09, 1995 12:00am January 10, 1995 Donavan Garcia MD Departed [facility]- August 13, 1995 12:00am August 13, 1995 Donavan Garcia MD Departed [facility]- February 23, 1996 12:00am February 23, 1996 Donavan Garcia MD Departed [facility]- June 09, 1996 12:00am June 09, 1996 Donavan Garcia MD Departed [facility]- September 14, 1996 12:00am September 15, 1996 Donavan Garcia MD Departed [facility]- November 22, 1996 12:00am November 22, 1996 Donavan Garcia MD Departed [facility]- January 27, 1997 12:00am January 27, 1997 Jo-Ann Jay MD Departed [facility]- December 13, 1997 12:00am December 13, 1997 Donavan Garcia MD Departed [facility]- December 19, 1997 12:00am December 19, 1997 Gloria Camara MD Departed [facility]- January 27, 1998 12:00am January 27, 1998 Jo-Ann Jay MD Departed Referred [facility]-Referred Lab December 22, 1998 12:00am December 22, 1998 Donavan Garcia MD Departed [facility]-Outpatient Conversion January 19, 1999 12:00am January 19, 1999 Donavan Garcia MD Departed Referred [facility]-Referred Lab February 07, 2000 12:00am February 07, 2000 Donavan Garcia MD Departed Referred [facility]erred [facility] August 14, 2000 12:00am August 14, 2000 Donavan Garcia MD Departed Referred [facility]-Referred [facility] December 15, 2000 12:00am December 15, 2000 Donavan Garcia MD Discharged Inpatient [facility] March 25, 2001 12:00am March 28, 2001 Joie Goyal MD Departed Referred [facility]-Referred [facility] May 14, 2001 12:00am May 14, 2001 Donavan Garcia MD Departed [facility]-Outpatient Conversion August 04, 2001 12:00am August 04, 2001 Jyotsna Gaytan MD Departed [facility]-Outpatient Conversion October 23, 2001 12:00am October 23, 2001 Jo-Ann Jay MD Departed Referred [facility]-Referred Lab May 17, 2002 12:00am May 17, 2002 Donavan Garcia MD Departed Referred [facility]erred [facility] May 26, 2003 12:00am May 26, 2003 Donavan Garcia MD Departed Referred [facility]erred [facility] June 05, 2004 12:00am June 05, 2004 Donavan Garcia MD Departed Surgical Day Care [facility]-Ambulatory Surgery October 10, 2004 12:00am October 10, 2004 Michael Sanabria MD Departed Surgical Day Care [facility]-Medical and Surgical Unit October 16, 2004 12:00am October 17, 2004 Michael Sanabria MD Departed Referred [facility] June 06, 2005 12:00am June 06, 2005 Donavan Garcia MD Departed Clinical [facility]-Outpatient Conversion August 05, 2005 12:00am August 05, 2005 Donavan Garcia MD Departed Referred [facility] July 21, 2006 12:00am July 21, 2006 Donavan Garcia MD Departed Clinical [facility]-Outpatient Conversion August 18, 2007 12:00am August 18, 2007 Donavan Garcia MD Departed Clinical [facility]-Outpatient Conversion May 20, 2008 12:00am May 20, 2008 NABEEL Jensen Departed Referred [facility]Referred Lab August 02, 2008 12:00am August 02, 2008 Donavan Garcia MD Departed Clinical [facility] August 25, 2008 12:00am August 25, 2008 Donavan Garcia MD Departed Referred [facility] August 10, 2009 12:00am August 10, 2009 Donavan Garcia MD Departed Clinical [facility] September 12, 2009 12:00am September 12, 2009 Donavan Garcia MD Registered Referred [facility]-Pathology August 20, 2010 8:41am Donavan Garcia MD Registered Referred [facility]-Pathology August 28, 2011 12:12pm NABEEL Ellsworth Registered Clinical [facility] September 25, 2011 9:29am NABEEL Ellsworth Departed Physician[facility] September 01, 2012 12:00am September 01, 2012 NABEEL Ellsworth Departed Physician[facility] October 29, 2012 12:00am October 29, 2012 Conversion Medent Departed Physician[facility] December 03, 2012 12:00am December 03, 2012 Conversion Medent Registered Referred [facility]-Pathology December 03, 2012 8:41am Donavan Garcia MD Registered Referred [facility]-Amalia rn labor and delivery December 03, 2012 2:35pm Donavan Garcia MD Departed Physician[facility]vi [facility] October 29, 2013 12:00am October 29, 2013 Karen Barreto APRN Registered Referred [facility]-Referred Lab October 29, 2013 7:55pm Karen Barreto APRN Departed Physician[facility]vi [facility] April 15, 2014 12:00am April 15, 2014 Karen Barreto APRN Departed Physician[facility]vi [facility] September 21, 2014 12:00am September 21, 2014 Karen Barreto APRN [facility] September 21, 2014 7:58pm Karen Barreto APRN Departed Physician[facility]vi [facility] October 12, 2014 12:00am October 12, 2014 Karen Barreto APRN Registered Clinical [facility] October 12, 2014 9:35am Karen Barreto APRN Departed Physician/Provi koki [facility] October 18, 2014 12:00am October 18, 2014 Conversion Medent Departed Physician[facility]vi k[facility] December 26, 2014 12:00am December 26, 2014 Conversion Medent Departed Physician[facility]vi [facility] January 24, 2015 12:00am January 24, 2015 Conversion Medent Registered Clinical [facility] January 30, 2015 6:58am Donavan Garcia MD Departed Physician[facility]Provi koki [facility] March 06, 2015 12:00am March 06, 2015 Conversion Medent Departed Physician[facility]vi [facility]oki [facility] September 07, 2015 12:00am September 07, 2015 Conversion Medent Departed Physician[facility]vi k[facility] December 09, 2016 12:00am December 09, 2016 Conversion Medent Departed Physician[facility]vi [facility] December 17, 2016 12:00am December 17, 2016 Conversion Medent Registered Referred [facility]-Pathology December 17, 2016 7:45pm Donavan Garcia MD Departed Physician[facility]vi [facility] January 23, 2017 12:00am January 23, 2017 Karen Barreto APRN [facility] January 23, 2017 2:25pm January 23, 2017 2:26pm Karen Barreto APRN Departed Clinical [facility] [place] April 08, 2017 9:32am April 08, 2017 9:33am Karen Barreto APRN Departed Physician[facility]Provi koki [facility] April 10, 2017 12:00am April 10, 2017 Conversion Medent Departed Surgical Day Care [facility]-Surgical Services April 28, 2017 9:00am April 28, 2017 12:14pm Karely Davis MD Departed Physician[facility]vi [facility] August 01, 2017 12:00am August 01, 2017 Estephania Gallo APRN [facility] August 01, 2017 3:39pm August 01, 2017 3:40pm Estephania Gallo APRN Departed Physician[facility]vi [facility] July 07, 2018 12:00am July 07, 2018 Conversion Medent Departed Clinical [facility] [place] September 29, 2018 5:12pm September 29, 2018 5:13pm Lavelle Gregory MD Departed Physician/Provi koki Office Visit [facility] October 06, 2018 12:00am October 06, 2018 Conversion Medent Departed Physician[facility]Provi koki [facility] RADIATION THERAPIST October 20, 2018 12:00am October 20, 2018 Conversion Medent Registered Inpatient [facility]- April 27, 2019 5:27pm ATC Fatimah Penaloza Departed Clinical [facility]-LAB [facility] August 11, 2019 9:03am August 11, 2019 9:04am Lavelle Gregory MD Departed Physician/Provi koki [facility] August 11, 2019 9:39am August 11, 2019 11:31am Lavelle Gregory MD [facility] August 11, 2019 11:07am August 11, 2019 11:08am Lavelle Gregory MD Departed Clinical [facility] October 06, 2019 7:45am October 06, 2019 7:46am Lavelle Gregory MD Assessments No Assessments Information [...] Event Date Not Given Reason Dose Number Dictaphone Mechanic Lot Number Vaccine Information Statement (VIS) Detail [...] available Insurance Providers Guarantor CARMELA GENAO Address [address] [address] Contact Info. Home Phone: Payer Policy Id Coverage Id Subscriber's Name Subscriber Id Effective Date Expiration Date [employer] [id number] Carmela Genao [id number] [employer] [place] [id number] Carmela Genao [id number] [employer] [place] [id number] Carmela Genao [id number] 2014 SELF PAY Self N/A Social History Smoking Status Status Date of Observation Never smoked tobacco (finding) August 112018 10:40am Observation Status Observation Response Date of Response Alcohol Use No April 28, 2017 10:05am Substance/Street Drug Use No April 042016 10:05am Substance Use Treatment No April 10:05am substance use type does not use August 11, 2019 10:20am Smoking Status Never smoker August 11 10:40am Assigned Sex Female Vital Signs Vital Reading Result Reference Range Collection Date/Time Height 64.25 [in_i] January 23 11:05am Weight 48.53 kg January 23 11:05am Body Temperature 98.0 [degF] 97.6-99.6 January 23, 2017 11:05am Heart Rate 64 /min 60-100 January 23 11:05am Respiratory rate 16 /min -January 23, 2017 11:05am BP Systolic 126 mm[Hg] 100-140 January 23 11:05am BP Diastolic 65 mm[Hg] 50-85 January 23 11:05am BMI (Body Mass Index) 18.2 kg/m2 January 23, 2017 11:05am Height 64 [in_i] December 03 8:28am Weight 46.26 kg December 03 8:28am BP Systolic 104 mm[Hg] 100-140 December 03 8:28am BP Diastolic 70 mm[Hg] 50-85 December 03 8:28am Height 64.25 [in_i] October 29, 2013 11:09am Weight 47.62 kg October 29, 2013 11:09am Heart Rate 60 /min 60-100 October 29, 2013 11:09am BP Systolic 110 mm[Hg] 100-140 October 29, 2013 11:09am BP Diastolic 72 mm[Hg] 50-85 October 29, 2013 11:09am BMI (Body Mass Index) 17.9 kg/m2 [facility] er 2012 11:09am Height 64.25 [in_i] April 15, [...] 5:47pm BMI (Body Mass Index) 18.7 kg/m2 [facility] 2013 5:47pm Height 64 [in_i] October 18, 2014 3:11pm Weight 49.16 kg October 18, 2014 3:11pm BP Systolic 120 mm[Hg] 100-140 October 18, 2014 3:11pm BP Diastolic 80 mm[Hg] 50-85 October 18, 2014 3:11pm BMI (Body Mass Index) 18.6 kg/m2 [facility] er 2013 3:11pm Height 64 [in_i] January 24 5 3:57pm Weight 49.89 kg January 24 5 3:57pm BP Systolic 122 mm[Hg] 100-140 January 24 3:57pm BP Diastolic 78 mm[Hg] 50-85 January 24 3:57pm BMI (Body Mass Index) 18.9 kg/m2 January 24, 2015 3:57pm Height 64 [in_i] September 07, 2 015 8:58am Weight 48.53 kg September 07, 2 015 8:58am BP Systolic 118 mm[Hg] 100-140 September 07, 2 015 8:58am BP Diastolic 70 mm[Hg] 50-85 September 07, 2 015 8:58am BMI (Body Mass Index) 18.4 kg/m2 [facility] 2014 8:58am Height 64 [in_i] December 17, 2016 2:07pm Weight 49.44 kg December 17, 2016 2:07pm BP Systolic 128 mm[Hg] 100-140 December 17, 2016 2:07pm BP Diastolic 78 mm[Hg] 50-85 December 17, 2016 2:07pm BMI (Body Mass Index) 18.7 kg/m2 2016 2:07pm Height 64.25 [in_i] April 10, 2017 9:15am Weight 48.53 kg April 10, 2017 9:15am Body Temperature 97.0 [degF] 97.6-99.6 April 10 017 9:15am Heart Rate 66 /min 60-100 [...] 28, 2017 12:12pm Respiratory rate 16 /min -April 28, 2017 12:12pm Oxygen saturation by Pulse [...] 10:02am BMI (Body Mass Index) 18.5 kg/m2 [facility] 2018 10:02am
--- OUTSIDE RECORDS SUMMARY | 2023-05-23 11:31 | XMS_ITS | Continuity of Care Document ---
Author Name Unknown Address [address] [place] [address] Phone [facility] Address [address] [place] [address] Phone Care Team Providers Care Public Transit Specialist Name Role Phone Lavelle Gregory Primary Care [...] 2019 9:18am 6.28 1000/mm3 4.8-10.8 MAIN LAB, [address] [place] [id number] Red Blood Count August 11, 2019 9:18am 4.85 M/mm3 4.20-5.40 MAIN LAB, [address] [place] [address] 35930 Hemoglobin August 11, 2019 9:18am 14.7 g/dL 12.0-16.0 MAIN LAB, [address] [place] [address] 67807 Hematocrit August 11, 2019 9:18am 46.1 % 37-47 MAIN LAB, [address] [place] [address] 63598 Mean Corpuscular Volume August 11, 2019 9:18am 95.1 fL 81.0-99.0 MAIN LAB, [address] [place] [address] 80398 Mean Corpuscular Hemoglobin August 11, 2019 9:18am 30.3 pg 27-31 MAIN LAB, [address] [place] [address] 29143 Mean Corpuscular Hemoglobin Concent August 11, 2019 9:18am 31.9 g/dL 33-37 MAIN LAB, [address] [place] [address] 67894 Red Cell Distribution Width August 11, 2019 9:18am 12.8 % 11.5-14.5 MAIN LAB, [address] [place] [address] 18121 Platelet Count August 11, 2019 9:18am 290 1000/mm3 140-440 MAIN LAB, [address] [place] [address] 57206 Mean Platelet Volume August 11, 2019 9:18am 11.0 fL 7.4-10.4 MAIN LAB, [address] [place] [address] 92509 Sodium Level August 11, 2019 9:18am 142 mmol/L 137-145 MAIN LAB, [address] [place] [address] 08146 Potassium Level August 11, 2019 9:18am 4.2 mmol/L 3.6-5.0 MAIN LAB, [address] [place] [address] Chloride Level August 11, 2019 9:18am 103 mmol/L 98-107 MAIN LAB, [address] [place] [address] Carbon Dioxide Level August 11, 2019 9:18am 32 mmol/L 22-30 MAIN LAB, [address] [place] [address] Anion Gap August 11, 2019 9:18am 7 7-16 MAIN LAB, [address] [place] [address] Blood Urea Nitrogen August 11, 2019 9:18am 12 mg/dL 7-17 MAIN LAB, [address] [place] [address] Creatinine August 11, 2019 9:18am 0.58 mg/dL 0.52-1.04 MAIN LAB, [address] [place] [address] Glomerular Filtration Rate Calc August 11, 2019 9:18am > 60 mL/min >60.0 MAIN LAB, [address] [place] [address] Glucose Level August 11, 2019 9:18am 85 mg/dL 70-100 MAIN LAB, [address] [place], [place] [address] Calcium Level August 11, 2019 9:18am 9.4 mg/dL 8.4-10.2 MAIN LAB, [address] [place] [address] Calcium Adjusted for Albumin August 11, 2019 9:18am 9.2 mg/dL 8.4-10.2 MAIN LAB, [address] [place], [place] [address] Total Bilirubin August 11, 2019 9:18am 0.7 mg/dL 0.2-1.3 MAIN LAB, [address] [place], [place] [address] Aspartate Amino Transf (AST/SGOT) August 11, 2019 9:18am 28 U/L 14-36 MAIN LAB, [address] [place], [place] [address] Alanine Aminotransferase (ALT/SGPT) August 11, 2019 9:18am 25 U/L 9-52 MAIN LAB, [address] [place], [place] [address] Total Protein August 11, 2019 9:18am 7.4 g/dL 6.3-8.2 MAIN LAB, [address] [place], [place] [address] Albumin August 11, 2019 9:18am 4.5 g/dL 3.5-5.0 MAIN LAB, [address] [place] [address] Cholesterol Level August 11, 2019 9:18am 118 mg/dL 59-199 MAIN LAB, [address] [place] [address] 58[address] HDL Cholesterol August 11, 2019 9:18am 75 mg/dL 40-60 The National Cholesterol Education Program (NCEP) has set the following guidelines (reference values) for cholesterol, HDL:Low HDL: <40 mg/dLNormal: 40-60 mg/dLDesirab le: >60 mg/dL MAIN LAB, [address] [place] [address] 93444 LDL Cholesterol August 11, 2019 9:18am 27.0 mg/dL 0-129 MAIN LAB, [address] [place] [address] 80365 VLDL Cholesterol August 11, 2019 9:18am 16.0 mg/dL 0-32 MAIN LAB, [address] [place] [address] 01693 Cholesterol/HDL Ratio August 11, 2019 9:18am 1.57 0-3.9 MAIN LAB, [address] [place] [address] 87242 Triglycerides Level August 11, 2019 9:18am 80 mg/dL 0-149 MAIN LAB, [address] [place] [address] 47214 Alkaline Phosphatase August 11, 2019 9:18am 79 U/L 38-126 MAIN LAB, [address] [place], [place] [address] Diagnostic Imaging Reports Report Dictated Date/Time Dictated By Status Radiology Report September 30, 2018 9:04am Amie Owens MD completed [facility] MAMMOGRAPHY REPORT PATIENT NAME: CARMELA ISAAC [id number] DATE OF : 1965 ATTENDING/ER PHYSICIAN: Lavelle [...] was discussed with a patient by the diagnostic radiologic technologist as part of the exam. The patient will receive a reminder phone call one week prior to her next screening appointment. In accordance with [place] Senate Bill 157 the following statement applies: [...] Date Discharge /Depart Date Provider(s) Departed Clinical [facility] [place] September 29, 2018 5:12pm September 29, 2018 5:13pm Lavelle Gregory MD Departed Physician[facility]Provi k[facility] October 06, 2018 12:00am October 06, 2018 Conversion Medent Departed Physician[facility] APPLICATION INFRASTRUCTURE ENGINEER October 20, 2018 12:00am October 20, 2018 Conversion Medent Registered Inpatient [facility]- April 27, 2019 5:27pm CAT Fatimah Penaloza Departed Clinical [facility]-LAB [facility] August 11, 2019 9:03am August 11, 2019 9:04am Lavelle Gregory MD Departed Physician/Provi koki Office Visit [facility] August 11, 2019 9:39am August 11, 2019 11:31am Lavelle Gregory [facility] August 11, 2019 11:07am August 11, 2019 [...] Event Date Not Given Reason Dose Number Glass Pulverizer Equipment Operator Lot Number Vaccine Information Statement (VIS) Detail [...] available Insurance Providers Guarantor CARMELA ISAAC Address [address] [place] [address] Contact Info. Home Phone: Payer Policy Id Coverage Id Subscriber's Name Subscriber Id Effective Date Expiration Date [employer] [id number] Carmela Isaac [id number] [employer] OUT OF STATE [id number] 1 Carmela Isaac [id number] [employer] [place] [id number] Carmela Isaac [id number] 2014 SELF PAY Self N/A Social History [...]
--- OUTSIDE RECORDS SUMMARY | 2023-05-23 11:31 | XMS_ITS | Continuity of Care Document ---
Author Name Unknown Address [address] [place] [address] Phone [facility] Address [address] [place] [address] Phone Care Team Providers Care Mud Analysis Supervisor Name Role Phone Lavelle Gregory Primary Care Provider Lavelle Gregory Attending Provider [phone] Allergies, Adverse Reactions, Alerts Allergen Type Severity [...] 06, 2019 8:29am Amie Owens MD completed [facility] MAMMOGRAPHY REPORT PATIENT NAME: CARMELA GENAO [id number] DATE OF : 1965 ATTENDING/ER PHYSICIAN: Lavelle [...] was discussed with a patient by the electroencephalogram technologist as part of the exam. The [...] signed by Amie Owens MD in OV> 10/06/1930 Advance Directives Advance Directive Response Recorded Date/ Time Does patient have an Advanced Directive? No September 25, 2011 9:30am Do we have a copy on file here at [facility]? No April 08, 2017 8:35am Pt has a Living Will? No September 042010 9:30am Do we have a copy on file here at [facility]? No April 08, 2017 8:35am Pt has a Power of Radiology Clerk? Mariaelena matias 2010 9:30am Do we have a copy on file here at [facility]? No April 08, 2017 8:35am Chief Complaint and Reason for Visit Chief Complaint Essential hypertensi on Screening for breast cancer TRIBAL DELEGATE annual exam Physical/BUMPED FROM 08/16 Encounters Encounter Location(s) Arrival/Admit Date Discharge /Depart Date Provider(s) Departed Clinical [facility] October 06, 2019 7:45am October 06, 2019 7:46am Lavelle Gregory MD Departed Physician[facility]Provi koki [facility] ASSISTANT ACCOUNT EXECUTIVE October 19, 2019 10:16am October 19, 2019 10:41am Donavan Garcia MD Departed Physician/Provi koki [facility] ASSISTANT ACCOUNT EXECUTIVE October 20, 2019 12:00am October 20, 2019 12:00am Conversion Medent Departed Physician/Provi koki [facility] September 12, 2020 12:46pm September 12, 2020 1:52pm Lavelle Gregory MD Registered Referred [facility]-Lab [facility] September 12, 2020 1:34pm Lavelle Gregory MD Assessments No Assessments Information [...] Event Date Not Given Reason Dose Number Will Call Clerk Lot Number Vaccine Information Statement (VIS) Detail Influenza Split Virus [id number] Older October 06, 2007 Tdap October 29, 2013 Zoster (shingles) Recomb Vac (Shingrix) July 07, 2018 Zoster (shingles) Recomb Vac (Shingrix) August 11, 2019 [id number] Mental Status No Mental Status Information Available Medical Equipment No Medical Equipment Information available Insurance Providers Guarantor CARMELA GENAO Address [address] [place] [id number] Contact Info. Home Phone: Payer Policy Id Coverage Id Subscriber's Name Subscriber Id Effective Date Expiration Date [employer] [place] [employer] [id number] CARMELA GENAO [id number] [facility] OUT OF STATE [id number] CARMELA GENAO [id number] [place] [id number] CARMELA GENAO [id number] 2014 SELF PAY Self N/A Plan of Treatment Very very healthy 55-year-old female here for annual physical exam. No health concerns or questions. I did review her Pap from December 2016 which does not appear to have cotesting but I am unable to log into the [employer] system to verify. Regardless, she will follow-up with ASSISTANT ACCOUNT EXECUTIVE. Normal Long Chain Dyeing Machine Operator exam. Follow for routine care. Future Tests [...] 10:21am BMI (Body Mass Index) 18.3 kg/m2 [facility] 2018 10:21am Height 64 [in_i] September 12, [...] 1:03pm BMI (Body Mass Index) 17.5 kg/m2 [facility] 2019 1:03pm
[2023-05-23 19:06] LABS: HCT 43.1 % (36.0-46.0); HGB 14.1 g/dL (11.2-15.7); MCHC 32.7 % (32.0-36.0); MCV 92 fL (80-95); MPV 11.2 fL (8.0-11.0); Platelet Count 258 10^3/uL (130-400); RDW 13.2 % (11.7-14.6); RDW-SD 44.6 fL; WBC 6.06 10^3/uL (4.4-10.8)
[2023-05-23 19:19] LABS: ALT 26 U/L (14-59); AST 23 U/L (15-37); Albumin 3.8 g/dL (3.4-5.0); Alkaline Phosphatase 93 U/L (46-116); Anion Gap 8.3 mmol/L (3-11); BUN 13 mg/dL (7-18); Bilirubin, Total 0.4 mg/dL (0.2-1.0); CO2 29.7 mmol/L (21.0-32.0); CREATININE 0.6 mg/dL (0.55-1.02); Calcium 8.6 mg/dL (8.5-10.1); Calculated LDL 27 mg/dL (<100); Chloride 107 mmol/L (98-107); Cholesterol 114 mg/dL (<200); Estimated GFR 103.98 (mL/min/1.73m2); Glucose 88 mg/dL (74-106); HDL Cholesterol 81 mg/dL (40-60); Sodium 145 mmol/L (136-145); Total Protein 6.8 g/dL (6.4-8.2); Triglyceride 33 mg/dL (<150)
== END 2023-05-23 11:16 | disposition home or self-care (01) ==
LOC: NCHCN 11:15
PROVIDERS: PCP Physician Assistant; Visit Provider Physician Assistant
DX: Z00.00 Encounter for general adult medical examination without abnormal findings (principal); R63.8 Other symptoms and signs concerning food and fluid intake; Z13.220 Encounter for screening for lipoid disorders; Z13.1 Encounter for screening for diabetes mellitus
CPT/HCPCS: 80053; 80061; 85027

== ENCOUNTER 2024-04-13 08:53 | Emergency (ER) | payer BC, SELFPAY ==
[2024-04-13 08:56] VITALS: BP 154/87; PULSE 75; RESP 15; TEMP 36.4; O2SAT 100
[2024-04-13 09:00] VITALS: BP 154/87; PULSE 75; RESP 15; TEMP 36.4; O2SAT 100
--- NOTE | 2024-04-13 09:21 | W.ED.GENAD ---
Discharge Plan Disposition Patient Disposition: Home Condition: Stable Discharge Details Clinical Impression: Abdominal pain Primary Care Provider: Vy Mcknight ED Provider: Irene Emmanuel Home Meds and New Rx's Prescriptions: No Action No Known Home Meds Discharge Instructions Instructions: Abdominal Pain, Adult ED Additional Instructions: At this time CT shows a fluid-filled area in your transverse colon. At this time it is safe for you to be discharged home with close follow-up with general surgery. Practice a clear diet for the next 2 to 3 days, advance as tolerated. You have an appointment on April 15 at 1:00. With general surgery. If you have any fever chills nausea vomiting, worsening abdominal pain not relieved by Tylenol or ibuprofen please return to the emergency department. Thank you for allowing us to care for you today. No evidence of urinary tract infection. No evidence of bowel obstruction. Please take Tylenol or Ibuprofen with food every 4-6 hours as needed for pain and swelling. Referrals: Arin Porter PA [PHYSICIANS VEGETABLE FARM MANAGER] - Lavelle Ramos DO [ CONSULTING PHYSICIAN] - 04/15/24 1:00 pm (For Pre-Colonoscopy appt. Colonoscopy scheduled for 04-19-24) Kris Barriga MD [ [facility] STAFF PHYSICIAN] - Darlene Tatum DO [OSTEOPATHIC DOCTOR] - [facility] Mode of arrival: ambulatory. Date/Time Provider Initiated Documentation: 04/13/24 09:10. Limitations to Documentation: no limitations. Information obtained by: patient, family, RN notes reviewed and old records reviewed. History of Present Illness described as moderate, Quality is described as other (Cramping), and is localized to the abdomen (Initially periumbilical now right quadrant radiating into the back). Patient reports radiation to back. Patient started experiencing this day(s) (4) and it has been intermittent (Worsening). No relieving factors improve symptom(s), Eating worsens symptoms, Movement worsens symptoms and Other factors that worsen symptoms (Palpation) . Patient notes loss of appetite and nausea/vomiting (Nausea only and decreased appetite); denies confusion, chest pain and shortness of breath. Patient did receive the following treatments prior to arrival, none Related Data Home Medications Medication Instructions Recorded Confirmed Unknown [No Known Home Meds] 05/03/15 04/13/24 Allergies Allergy/AdvReac Type Severity Reaction Status Date / Time erythromycin base Allergy Mild Hives Unverified 04/13/24 09:02 General Stated Complaint: Abd Prob GINGER: 3 Review of Systems All systems reviewed & are unremarkable except as noted in HPI and below Constitutional Constitutional: Denies chills, Denies fever(s) and Reports poor appetite Gastrointestinal Gastrointestinal: Reports as per HPI, Reports abdominal pain, Denies melena, Denies hematochezia, Denies constipation, Reports cramping, Denies diarrhea, Reports nausea and Denies vomiting Genitourinary Genitourinary: Reports as per HPI, Denies abnormal vaginal bleeding, Denies hematuria, Denies dysuria, Denies urinary urgency, Denies vaginal discharge and Denies vaginal pruritus Exam Narrative Exam Narrative: Constitutional: Alert and oriented x3. Appears stated age. Very thin body habitus. Head: Normocephalic, no trauma. Eyes: Pupils PERRL, Red reflex noted, EOM's intact. Eyelids symmetrical without lesions, discharge, or swelling. ENT: Bilateral TM's WNL, External ear normal to inspection, no mastoid TTP, swelling, or erythema, Nasal turbinates WNL, no nasal discharge. Normal dentition, Posterior pharynx WNL, no exudate. Chest: RRR, Normal S1, S2, distal pulses intact. Resp: Lungs clear to auscultation bilaterally, no wheezes, rales, or rhonchi. Abdomen: Soft, non-distended, Normoactive bowel sounds all 4 quads. Tenderness with palpation to right lower quadrant, right upper quadrant. Musculoskeletal: Moves all 4 extremities without difficulty. Skin: No suspicious rashes or lesions. Capillary refill less than 2 sec. Neurologic: Cranial nerves II-XII intact. Alert and oriented x 3. Motor: No deficits noted. Sensory: Intact bilaterally all 4 extremities. Hematologic/Lymphatic: No ecchymosis, no lymphadenopathy. Course Vital Signs Vital signs: Vital Signs Temperature 36.4 C 04/13/24 08:56 Pulse 75 04/13/24 08:56 Respiratory Rate 15 04/13/24 08:56 Blood Pressure 154/87 H 04/13/24 08:56 Pulse Oximetry 100 04/13/24 08:56 Temperature 36.4 C 04/13/24 09:00 Temperature Source Temporal Artery Scan 04/13/24 09:00 Pulse 75 06/11/24 09:00 Respiratory Rate 15 04/13/24 09:00 Respiratory Effort Normal 04/13/24 08:59 Blood Pressure 154/87 H 04/13/24 09:00 Blood Pressure Position Sitting 04/13/24 09:00 Pulse Oximetry 100 04/13/24 09:00 Oxygen Delivery Method Room Air 04/13/24 09:00 Oxygen Flow Rate 0 04/13/24 09:00 Pain Level 5 04/13/24 09:00 Medical Decision Making 58-year-old female presents to the ER with a chief complaint of lower abdominal cramping which began 4 days ago and is now worsened and has settled in the right lower quadrant. She denies any nausea vomiting diarrhea. Denies any dysuria or problems urinating. She does have a past medical/surgical history of bladder suspension, she has had 4 children. She was sent here by urgent care for further evaluation and imaging. Abdominal pain protocol ordered, including lipase urinalysis CT abdomen pelvis pending labs. Spoke with radiologist regarding CT imaging, please see official result. 1142: Surgery paged for consultation, he is currently in day surgery, discussed patient case in details with him he agrees to present to the ER for patient evaluation. Differential diagnosis includes but not limited to appendicitis, diverticulitis, mass, cholecystitis, uterine fibroid, ovarian torsion, 1221: Spoke with Dr. Ramos who states that at this time it does not appear to be appendicitis, he does recommend making appointment for close follow-up with outpatient surgery clinic for a colonoscopy and outpatient bowel prep. We will call over to the office to make that appointment. He does not recommend antibiotics at this time. At this time I do feel that patient is not at risk for loss for follow-up, will discuss plan of care with patient and family. Spoke with General surgery java front end web developerChanel They are able to get her an appointment 04-15-24 @ 1300. Patient given written instructions. This text was generated using [employer] Beyond[employer] system, please disregard any oddities of phrase or misspellings. Medical Records Medical records reviewed: Yes I reviewed the patient's medical records. Lab Data Lab results reviewed: Yes I reviewed the patient's lab results. Labs: Laboratory Tests Range/Units 04/13/24 04/13/24 09:01 09:24 WBC (4.4-10.8) 10^3/uL 9.44 RBC (3.93-5.22) 10^6/uL 4.95 Hgb (11.2-15.7) g/dL 15.0 Hct (36.0-46.0) % 45.5 MCV (80-95) fL 92 MCH (27.0-33.0) pg 30.3 MCHC (32.0-36.0) % 33.0 RDW (11.7-14.6) % 13.3 Plt Count (130-400) 10^3/uL 248 MPV (8.0-11.0) fL 10.3 Immature Gran % % 0.5 Neutrophils % % 78.5 Lymphocytes % % 12.3 Monocytes % % 7.8 Eosinophils % % 0.6 Basophils % % 0.3 Nucleated RBC % (0.0-0.3) % 0.0 Absolute Neutrophils (1.2-6.7) 10^3/uL 7.40 H Absolute Lymphocytes (1.2-3.4) 10^3/uL 1.16 L Absolute Monocytes (0.1-0.8) 10^3/uL 0.74 Absolute Eosinophils (0.0-0.7) 10^3/uL 0.06 Absolute Basophils (0.0-0.2) 10^3/uL 0.03 Sodium (136-145) mmol/L 143 Potassium (3.5-5.1) mmol/L 4.2 Chloride (98-107) mmol/L 105 Carbon Dioxide (21.0-32.0) mmol/L 30.0 Anion Gap (3-11) mmol/L 8.0 BUN (7-18) mg/dL 11 Creatinine (0.55-1.02) mg/dL 0.6 Est GFR (CKD-EPI 2020) (mL/min/1.73m2) 103.98 Glucose (74-106) mg/dL 100 Calcium (8.5-10.1) mg/dL 9.0 Magnesium (1.8-2.4) mg/dL 2.3 Total Bilirubin (0.2-1.0) mg/dL 0.8 AST (15-37) U/L 21 ALT (14-59) U/L 29 Alkaline Phosphatase (46-116) U/L 101 Total Protein (6.4-8.2) g/dL 7.5 Albumin (3.4-5.0) g/dL 4.0 Lipase (16-77) U/L 20 Urine Color (Yellow) Yellow Urine Clarity (Clear) Clear Urine pH (5-8) 6.0 Ur Specific Valdez (1.005-1.025) 1.015 Urine Protein (Neg-Trace) mg/dL Negative Urine Ketones (Negative) mg/dL Negative Urine Blood (Negative) Trace-intact H Urine Nitrite (Negative) Negative Urine Bilirubin (Negative) Negative Urine Urobilinogen (Up to 0.2) mg/dL 0.2 Ur Leukocyte Esterase (Negative) Negative Urine RBC (0-2) HPF 0-2 Urine WBC (0-5) HPF 0-2 Ur Epithelial Cells (Negative) HPF Few Urine Crystals (Negative) HPF Negative Urine Bacteria (Negative) HPF Negative Urine Casts (Negative) LPF Negative Urine Mucus (Negative) Negative Ur Culture Indicated? No Urine Glucose (Negative) mg/dL Negative Quality:SDOH Health Related Social Needs: No Data to Display PFSH All Active Problems (Updated 04/13/24 @ 13:19 by Irene Emmanuel NP) Abdominal pain (Acute) Osteopenia (Acute) Medical History (Updated 04/13/24 @ 13:19 by Irene Emmanuel NP) Underweight Laceration Surgical History (Updated 02/06/24 @ 14:38 by Simona Bergeron) H/O varicose vein procedure S/P tonsillectomy History of bladder suspension procedure Family History (Updated 02/06/24 @ 14:42 by Simona Bergeron) Mother Breast cancer Father Dementia Stroke Maternal Grandfather Diabetes Social History (Updated 02/13/24 @ 11:19 by Adrienne Wesley) Smoking/Tobacco Use Status: Never Second Hand Exposure: No Smoking risk assessment performed?: Yes Alcohol Intake: never Drug use: Never Substance use type: does not use Adopted: No Caregiver/Support person: No Foster care: No Housing: house Number of Children: 4 number of grandchildren: 1 Communication Needs: None Education Level: high school 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 Current gender identity: female What is your relationship status?: How often do you talk on the phone with friends or family?: three or more times per week How often do you get together with friends or relatives?: three or more times per week How often do you attend episcopalian or confucianism services?: 4 or more times per year Do you belong to any clubs or organized social groups?: no Panel score (0-1 are the most socially isolated patients): 3 What type of physical activity do you participate in: walking, regular exercise and swimming Duration: 60-90 minutes/day Frequency: 5-6 times per week Nina/Amish: Congregation Special nina needs: No Seatbelt use: always Helmet use: Yes Helmet use: always Drive intox or ride w/intox pole truck driver: No Do you feel safe at home: Yes Do you feel safe in your relationship?: Yes Victim of physical abuse: No Victim of emotional abuse: No Victim of sexual abuse: No
[2024-04-13 09:38] LABS: Abs Immature Grans 0.05 10^3/uL (0.0-0.06); Absolute Basophil Count 0.03 10^3/uL (0.0-0.2); Absolute Eosinophil Count 0.06 10^3/uL (0.0-0.7); Absolute Lymphocyte Count 1.16 10^3/uL (1.2-3.4); Absolute Monocyte Count 0.74 10^3/uL (0.1-0.8); Basophils % 0.3 %; Eosinophils % 0.6 %; HCT 45.5 % (36.0-46.0); Immature Grans % 0.5 %; Lymphocytes % 12.3 %; MCH 30.3 pg (27.0-33.0); MCV 92 fL (80-95); MPV 10.3 fL (8.0-11.0); Monocytes % 7.8 %; Neutrophils % 78.5 %; Platelet Count 248 10^3/uL (130-400); RBC 4.95 10^6/uL (3.93-5.22); RDW 13.3 % (11.7-14.6); RDW-SD 45.2 fL; WBC 9.44 10^3/uL (4.4-10.8)
[2024-04-13 09:40] LABS: Bilirubin Negative (Negative); Blood Trace-intact (Negative); Clarity Clear (Clear); Glucose Negative (Negative); Ketones Negative (Negative); Leukocyte Esterase Negative (Negative); Nitrite Negative (Negative); Specific Gravity 1.015 (1.005-1.025); Urobilinogen 0.2 mg/dL (Up to 0.2)
[2024-04-13 09:46] LABS: Bacteria Negative HPF (Negative); C & S Indicated? No; Casts Negative LPF (Negative); Crystals Negative HPF (Negative); Epithelial Cells Few HPF (Negative); Mucus Negative (Negative); RBC 0-2 HPF (0-2); WBC 0-2 HPF (0-5)
[2024-04-13 09:57] LABS: ALT 29 U/L (14-59); AST 21 U/L (15-37); Alkaline Phosphatase 101 U/L (46-116); BUN 11 mg/dL (7-18); Bilirubin, Total 0.8 mg/dL (0.2-1.0); CREATININE 0.6 mg/dL (0.55-1.02); Chloride 105 mmol/L (98-107); Estimated GFR 103.98 (mL/min/1.73m2); Glucose 100 mg/dL (74-106); Lipase 20 U/L (16-77); Magnesium 2.3 mg/dL (1.8-2.4); Potassium 4.2 mmol/L (3.5-5.1); Sodium 143 mmol/L (136-145); Total Protein 7.5 g/dL (6.4-8.2)
[2024-04-13] MEDS: Omnipaque 350 MG/ML 500 ML BTL-Imaging package IJ (10:40)
[2024-04-13] MEDS: Normal Saline - Diluent 50 ML VIAL IJ (10:43)
--- NOTE | 2024-04-13 10:47 | DI.CT_ITS ---
Exam(s) CT ABDOMEN PELVIS W EXAM: CT ABDOMEN PELVIS W CLINICAL HISTORY: RLQ abd Pain TECHNIQUE: Imaging Protocol: Axial computed tomography images with coronal and sagittal reformatted images were created and reviewed. CONTRAST MATERIAL: Intravenous: Omnipaque 350 Contrast volume:67 mL Oral: No COMPARISON: No exams were available for comparison FINDINGS: ABDOMEN: Lung Bases: There is a 4 mm nodule in the left lower lobe (series 5, image 10). Liver: Normal density. No measurable mass. Portal, Superior Mesenteric, and Splenic Veins: Unremarkable. Gallbladder and Biliary Tract: No radiodense calculus or dilation. Pancreas: Normal density, no abnormal calcifications or inflammatory process. Spleen: Normal. Adrenals: No masses seen. Kidneys: Normal size, contour and axis. No radiodense stones or obstructive uropathy. There is a smal l simple cyst in the right kidney. No follow-up is recommended. Abdominal Aorta: Abdominal portion non-dilated. Atherosclerotic calcification is present. Bowel: The bowel wall thickening. There is thickening of the what appears to be the proximal transve rse colon (series 5, image [id number]). Colitis versus proximal neoplasm. There is a 1 cm calcified no dule within a loop of bowel which may represent a stone, mass or possible diverticulum. There is a s mall amount of fluid surrounding this area at the tip of the liver. No abscess is identified. (Seri es 5, images [id number]). Peritoneal Cavity: There is a small amount of fluid in the pelvis. No free air. Lymph Nodes: Within normal limits. Bones: Within normal limits for the patient's age. Soft Tissues: Unremarkable. PELVIS: Bladder: Symmetric distention, no gross wall thickening. Reproductive Organs: Unremarkable as visualized. Lymph Nodes: Within normal limits. Bones: Within normal limits for the patient's age. IMPRESSION: 1. Findings suspicious for proximal transverse colon mass versus colitis. Barium enema or colonoscop y should be considered for further evaluation. 2. Small amount of abdominal pelvic ascites. 3. 4 mm nodule in the left lower lobe. Solid nodules smaller than 6 mm do not require routine follow-up in all patients with high clinical r isk; however, some nodules smaller than 6 mm with suspicious morphology, upper lobe location, or both may warrant follow-up at 12 months (grade 2A; weak recommendation, high-quality evidence). (Garrett et al., 2017) Single solid noncalcified nodules. ???Solid nodules smaller than 6 mm (those 5 mm or smaller) do not require routine follow-up in patients at low risk (grade 1C; strong recommendation, low- or very-low- quality evidence). (Garrett et al., 2017) 4. Findings were discussed with the Irene Emmanuel at 11:40 a.m. on 04/13/2024. RADIATION DOSE DELIVERED: 505.45mGy.cm Total DLP DATA REPOSITORY: All CT scans at this facility are submitted to the National Radiology Data Registry (NRDR) Dose Index Registry (DIR) with the [employer] (A[employer]). RADIATION OPTIMIZATION: All CT scans at this facility use at least one of these dose optimization te chniques: automated exposure control; mA and/or kV adjustment per patient size (includes targeted exa ms where dose is matched to clinical indication); or iterative reconstruction.
== END 2024-04-13 13:47 | disposition home or self-care (01) ==
PROVIDERS: Emergency Provider Registered Nurse Emergency; PCP Nurse Practitioner Family
DX: R10.31 Right lower quadrant pain (principal)
CPT/HCPCS: 36415; 80053; 83690; 99285; 74177; 81003; 81015; 83735; 85025; 99284

== ENCOUNTER 2024-04-26 08:20 | Day surgery (SDC) | payer BC, SELFPAY ==
--- NOTE | 2024-04-25 19:15 | W.PM.DSUDISC ---
Date of service: 04/26/24 Time of Service: 10:25 Discharge Plan Disposition Patient Disposition: Home Condition: Good Discharge Details Reason For Visit: diagnostic colonoscopy Attending Provider: Kris Barriga Primary Care Provider: Vy Mcknight Home Meds and New Rx's Prescriptions: Continued Chaga Tea PO DAILY Discontinued bisacodyl [Dulcolax (bisacodyl)] 5 mg tablet,delayed release (DR/EC) 5 mg PO ONCE Qty: 4 0RF Rx Instructions: Take per colonoscopy instructions provided by ordering providers office polyethylene glycol 3350 17 gram/dose powder 17 g PO ONCE Qty: 238 0RF Rx Instructions: Take per colonoscopy instructions provided by ordering providers office Discharge Instructions Additional Instructions: Kaia, we are able to complete your colonoscopy today without any difficulty. Your prep was excellent and I could see everything fine. I was able to get all the way over to the cecum, so we have a complete evaluation of your entire large intestine. I did not see any signs of tumors, polyps, or anything worrisome. There are no signs of any active inflammation in your colon. Based on the history, I suspect he just had a transient episode of colitis, or inflammation of the colon. A number of things can cause this, but infectious colitis is probably the most common. Hopefully it will not bother you anymore. You should consider another screening colonoscopy in 10 years, and if you need anything else in the meantime, do not be afraid to ask. 1. If tolerated, consume a soft, low fiber diet for 1-2 days. [address] Do not drive, drink alcohol, operate machinery, make critical decisions, or do activities that require coordination or balance for 24 hours. 3. Because air was put into your colon during the procedure, expelling air from your rectum (passing gas or farting) is normal. 4. You may not have a bowel movement for 1-3 days because of the colonoscopy prep. This is normal. 5. Go directly to the emergency room if you notice any of the following: Develop chills (warm to touch), or if you have a thermometer and your temperature is above 101 Difficulty breathing or difficultly swallowing Persistent vomiting Severe abdominal pain, other than gas cramps Severe chest pain Black, tarry stools Any bleeding ? exceeding one tablespoon 6. Call your physician if the site where your intravenous was started becomes red, swollen, painful, and warm to touch. 7. Your physician has reviewed your pre-procedure medications. Please continue to take those medications as previously ordered. You will be given specific information/education regarding any changes to your medications before leaving. Activity:: Activity as Tolerated Diet:: As Tolerated Discharge Orders Discharge Orders: Discharge Order (Routine); Ordered 04/25/24 Ordered By: Kris Barriga DS: Diagnosis Discharge Diagnosis (1) Abdominal pain: Status: Acute Asessment and Plan: Pain is resolved, and colonoscopy is normal today. Do recommend a follow-up screening colonoscopy in 10 years.
--- NOTE | 2024-04-25 19:17 | W.COLOREPORT ---
Date of service: 04/26/24 Time of Service: 10:27 Colonoscopy Report Date of procedure: 04/26/24 Pre-op diagnosis general: Colon mass Post-op diagnosis procedure note: other (Normal colonoscopy) Procedure: colonoscopy Surgeon: Kris Barriga Anesthesia Type: General:No Airway Estimated blood loss (mL): 0 Pathology: none sent Complications: None Disposition: same day Indications: Kaia is a 59 year old woman. She had abdominal pain and underwent a CT scan raised the possibility of a colon mass or colitis. She needs a diagnostic colonocopy Prep: Miralax/Dulcolax Procedure Start Time: 10:00 Procedure End Time: 10:17 Retraction Time: 7 Findings: Normal-appearing colonoscopy Procedure Description: After the induction of anesthesia, and with the patient in left lateral decubitus position, I began by performing an external anorectal exam.? Perineum and skin were normal, as was the anal verge.? There was no evidence of external hemorrhoids.? Next, I performed a digital rectal exam.? I did not appreciate any abnormal findings.? Next, I advanced a colonoscope into the rectal vault.? I performed retroflexion.? This was normal.? Using insufflation, I then advanced the colonoscope beyond the rectal folds and into the sigmoid colon before advancing towards the cecum.? The scope was noted to be in the cecum by identification of the ileocecal valve and appendiceal orifice.? I then began withdrawing the colonoscope using repeated irrigation as necessary for full evaluation of the colonic mucosa. Several passes were taken across the hepatic flexure, and along the length of the transverse colon, as there was abnormality seen here on the previous CT scan. The mucosa was all totally normal and healthy appearing. There were no signs of any chronic or active inflammation. Once the scope was withdrawn to the level of the rectum, great care was taken to examine portions of the rectal folds.? Finally, the scope was withdrawn and the patient was brought to the same-day surgery recovery unit as the anesthetic wore off. ?The findings and instructions were shared with the patient prior to discharge. Nicolaus Bowel Prep Nicolaus Bowel Prep Right Colon: 3 Left Colon: 3 Transverse Colon: 3 Total Score: 9
[2024-04-26 08:30] VITALS: BP 128/68; PULSE 64; RESP 16; TEMP 36.3; O2SAT 97
[2024-04-26] MEDS: Lactated Ringers 1,000 ML 80 ML IV (09:25)
--- NOTE | 2024-04-26 09:36 | ANES.PREOP_ITS ---
General Info Date of Service Date Performed: 04/26/24 Height: 5 ft 4 in Weight: 45 kg Body Mass Index (BMI): 17.0 Surgical Procedure: Operation Date: 04/26/24 10:35 Proposed Procedure Side Surgeon p Cierra Barriga MD Meds Allergies and Home Medications Allergies Allergy/AdvReac Type Severity Reaction Status Date / Time erythromycin base Allergy Mild Hives Verified 04/26/24 08:54 Home Medication Medication Instructions Recorded Chaga Tea PO DAILY 04/23/24 Current Visit Medications: Current Medications Generic Name Dose Route Start Last Admin Trade Name Freq PRN Reason Stop Dose Admin Hyoscyamine Sulfate 0.125 mg 04/25/24 19:18 Hyoscyamine 0.125 Mg Sl/Oral/Chew SL 05/25/24 19:17 DIRECTED PRN Ringer's Solution 1,000 mls @ 80 mls/hr 04/26/24 06:00 04/26/24 09:25 IV 05/23/24 23:59 80 mls/hr INFUSION MALCOM Administration IV Miscellaneous Supplies 1 each 04/26/24 06:00 Iv Access IV 05/23/24 23:59 DIRECTED MALCOM Ondansetron HCl 4 mg 04/25/24 19:18 Ondansetron 4 Mg/2 Ml Vial IVP 05/25/24 19:17 Q4H PRN PRN Nausea / Vomiting Sodium Chloride 0 ml 04/26/24 06:00 Normal Saline Flush 10 Ml Syr IV 05/23/24 23:59 PRN PRN Sodium Chloride 0 ml 04/26/24 06:00 Normal Saline 10 Ml Vial IJ 05/23/24 23:59 DIRECTED PRN Sterile Water 0 ml 04/26/24 06:00 Water,Injection,Sterile 10 Ml Vial IJ 05/23/24 23:59 DIRECTED PRN PFSH Active Problems Active Problems: Problem Status Onset Code Abdominal pain R10.9 Osteopenia M85.80 Medical History Medical History Underweight Laceration Surgical History Surgical History Hx of colonoscopy H/O varicose vein procedure S/P tonsillectomy History of bladder suspension procedure Tobacco Smoking/Tobacco Use Status: Never Second hand exposure: No Alcohol Alcohol Intake: never Substance Use Substance use: Never Substance use type: does not use Vital Signs and Lab Results Vital Signs Most Recent Vital Signs in EMR: Most Recent Vital Signs Temp Pulse Resp BP Pulse Ox 36.3 C L 64 16 128/68 97 04/26/24 08:30 04/26/24 08:30 04/26/24 08:30 04/26/24 08:30 04/26/24 08:30 Lab Results Blood Type / Crossmatch: No Data to Display Complete Blood Count: White Blood Count 9.44 10^3/uL (4.4-10.8) 04/13/24 09:24 Red Blood Count 4.95 10^6/uL (3.93-5.22) 04/13/24 09:24 Hemoglobin 15.0 g/dL (11.2-15.7) 04/13/24 09:24 Hematocrit 45.5 % (36.0-46.0) 04/13/24 09:24 Platelet Count 248 10^3/uL (130-400) 04/13/24 09:24 Complete Metabolic Panel: Sodium 143 mmol/L (136-145) 04/13/24 09:24 Potassium 4.2 mmol/L (3.5-5.1) 04/13/24 09:24 Chloride 105 mmol/L (98-107) 04/13/24 09:24 Carbon Dioxide 30.0 mmol/L (21.0-32.0) 04/13/24 09:24 BUN 11 mg/dL (7-18) 04/13/24 09:24 Creatinine 0.6 mg/dL (0.55-1.02) 04/13/24 09:24 Est GFR (CKD-EPI 2020) 103.98 (mL/min/1.73m2) 04/13/24 09:24 Magnesium 2.3 mg/dL (1.8-2.4) 04/13/24 09:24 Calcium 9.0 mg/dL (8.5-10.1) 04/13/24 09:24 Albumin 4.0 g/dL (3.4-5.0) 04/13/24 09:24 Glucose 100 mg/dL (74-106) 04/13/24 09:24 Liver Function Panel: Alanine Aminotransferase (ALT/SGPT) 29 U/L (14-59) 04/13/24 09: 24 Aspartate Amino Transf (AST/SGOT) 21 U/L (15-37) 04/13/24 09:24 Coagulation Panel: No Data to Display Cardiac Panel: No Data to Display Arterial Blood Gas: No Data to Display Venous Blood Gas: No Data to Display Pancreas Panel: Lipase 20 U/L (16-77) 04/13/24 09:24 Thyroid Panel: No Data to Display Infectious Disease: No Data to Display Blood Cultures: No Data to Display Toxicology Panel: No Data to Display Anesthesia Assessment and Plan Anesthesia History Personal History: No History of Anesthesia Complications Family History: No Family History of Anesthesia Complications Exercise Tolerance Exercise Tolerance: Metabolic Equivalents>4 Pertinent Negatives Pertinent Negatives: No Symptoms of GERD, No Major Cardiovascular Symptoms or Complaints, No Major Pulmonary Symptoms or Complaints and No History of CVA/TIA Cardiac & Pulmonary Exam Cardiac Exam: Normal S1/S2 Heart Sounds Pulmonary Exam: Clear Bilateral Breath Sounds Implantable Cardiac Device Does patient have a Pacemaker or an ICD?: No Airway Exam Known Difficult Airway: No Mallampati Class: 1 Mouth Opening: Normal (> 3cm) Thyromental Distance: Greater than 3 cm Neck Range of Motion: Full ROM Neck Circumference: Normal Teeth Condition: Normal Dentition ASA Classification ASA Score: ASA 2 Emergency Case?: No NPO Status NPO Status: NPO Clears >2 hours, Solids >8 hours Anesthesia Plan Resuscitation Status: Full Code Anesthesia Technique: General Anesthesia Airway Planned: Natural Airway Monitors Used: Standard Monitors
[2024-04-26 09:50] VITALS: BMI 17.0
[2024-04-26 10:25] VITALS: BP 119/74; PULSE 67; RESP 16; TEMP 36.6; O2SAT 96
--- NOTE | 2024-04-26 10:29 | W.ANESPOSTOP ---
Postoperative Evaluation Date, Time and Location Date Performed: 04/26/24 Time Performed: 10:30 Patient Location: Day Surgery Unit Vital Signs Most Recent Imported Vital Signs: Most Recent Vital Signs Temp Pulse Resp BP Pulse Ox 36.6 C 67 16 119/74 96 04/26/24 10:25 04/26/24 10:25 04/26/24 10:25 04/26/24 10:25 04/26/24 10:25 Pain Score Most Recent Pain Score: Most Recent Pain Score Pain Level 0 04/26/24 10:25 Assessment Mental Status: Awake (Alert & Oriented to Patient Baseline) Airway and Respiratory Function: Patent airway with normal (patient baseline) respiratory exam Cardiovascular Function: Hemodynamically Stable Hydration Status: Adequately Hydrated Nausea & Vomiting: No Nausea or Vomiting Pain: Pt. Denies Any Pain Peripheral Nerve Block: Patient did not receive a nerve block
[2024-04-26 10:40] VITALS: BP 116/66; PULSE 57; RESP 16; TEMP 36.6; O2SAT 99
== END 2024-04-26 10:55 | disposition home or self-care (01) ==
LOC: SUR 08:20
PROVIDERS: PCP Nurse Practitioner Family; Visit Provider Surgery
PROC: 0DJD8ZZ Inspection of Lower Intestinal Tract, Via Natural or Artificial Opening Endoscopic (ICD-10-PCS; CPT 45378; principal; 2024-04-26 10:30)
DX: R10.9 Unspecified abdominal pain (principal)
CPT/HCPCS: 45378; J2704

== ENCOUNTER 2024-09-07 15:45 | Emergency (ER) | payer BC, SELFPAY ==
--- NOTE | 2024-09-07 15:45 | DI.RAD_ITS ---
Exam(s) XR WRIST LT COMP NAVICULAR EXAM: XR WRIST LT COMP NAVICULAR CLINICAL HISTORY: L wrist injury; last week- hit with hammer. TECHNIQUE: 2D digital imaging was performed. Three views. COMPARISON: No exams were available for comparison FINDINGS: BONES: No acute fracture is present. Ulnar styloid suboptimally profiled. No bony destructive lesio n is seen. JOINTS: The carpal bones are normally aligned. Degenerative changes scaphoid trapezium trapezoid paulie ints. SOFT TISSUE: Normal. IMPRESSION: No acute abnormality. DATA REPOSITORY: RADIATION DOSE DELIVERED:
[2024-09-07 15:46] VITALS: BP 151/68; PULSE 63; RESP 12; TEMP 36.6; O2SAT 98
--- NOTE | 2024-09-07 15:55 | ED.GENADUL_ITS ---
Discharge Plan Disposition Patient Disposition: Home Condition: Stable Discharge Details Clinical Impression: Sprain of left wrist Primary Care Provider: Vy Mcknight ED Provider: Deep Jacinto Home Meds and New Rx's Prescriptions: No Action No Known Home Meds Discharge Instructions Instructions: Wrist Sprain ED Additional Instructions: You were seen in the emergency department for the sprain of your left wrist, this is likely leftover inflammation from the contusion from the accident with your last week. Please remain in the brace, rest, ice, compress and elevate, take adequate dosing of Tylenol and ibuprofen, you may need specialty evaluation by orthopedics if the pain does not improve in another week. Please return to the emergency department for any signs of infection or neurovascular compromise to the left hand. Referrals: Vy Mcknight NP [Primary Care Provider] - Discharge Data Discharge Date/Time-TO BE ENTERED AT DEPARTURE: 09/07/24 17:40 HPI General Date/Time Provider Initiated Documentation: 09/07/24 15:55 . HPI Narrative: 59 year-old female presents to ED today by POV/ambulating with a chief complaint of L wrist pain- helping her with a fence post last week, he accidentally struck her wrist with a sledge hammer. Quality described as decreased ROM, no radiation to swelling, bruising, numbness/tingling, proximal forearm pain. Severity is described as moderate. Palliating factors include nothing specific- has been bracing it herself. Provoking factors include movement. Patient is R-hand dominant. Patient not anticoagulated. Related Data Home Medications ?Medication ?Instructions ?Recorded ?Confirmed Unknown [No Known Home Meds] 09/07/24 09/07/24 Allergies Allergy/AdvReac Type Severity Reaction Status Date / Time erythromycin base Allergy Mild Hives Verified 09/07/24 15:49 General Stated Complaint: Orthopedic GINGER: 4 Review of Systems All systems reviewed & are unremarkable except as noted in HPI and below Exam Narrative Exam Narrative: GENERAL APPEARANCE: Well-nourished, non-toxic, awake and alert, atraumatic, no acute distress. SKIN: Warm, pink, dry, intact, without rashes/lesions/ulcerations. HEAD: Normocephalic, atraumatic, normal hair distribution for gender/age. EYES: Normal conjunctiva, no exudates on lids/lashes. ENT: Nares patent, no circumoral cyanosis, no facial swelling NECK: Supple, trachea midline, painless cervical ROM. LUNGS/CHEST: Non-labored respirations, normal A/P diameter, symmetrical expansion, no chest wall deformity HEART (CV/PV): No peripheral edema, no JVD. ABDOMEN: Soft, non-distended, no guarding. MSK: Normal ROM, no swelling/deformity to bilateral UEs or LEs, moving all extremities without weakness, no cyanosis, spine midline without tenderness, normal curvature, mild tenderness to the left anatomical snuffbox, left radial pulse 2+, full range of motion in the hand, insurance claims examiner strength 5/5, no ecchymosis or crepitus, no proximal forearm pain, able to supinate pronate NEURO: Mental Status AAOx4 - alert to person, place, time, events No facial droop, no forehead involvement. Motor: No focal weakness - strength 5/5 in bilateral UEs and LEs, proximal and distal, symmetric. Sensory: sensation intact to light touch globally. Gait normal: patient ambulated without ataxia into ED room. PSYCH: euthymic, cooperative, pleasant, appropriate speech Course Vital Signs Vital signs: Vital Signs Temperature 36.6 C 09/07/24 15:46 Pulse 63 09/07/24 15:46 Respiratory Rate 12 09/07/24 15:46 Blood Pressure 151/68 H 09/07/24 15:46 Pulse Oximetry 98 09/07/24 15:46 Temperature 36.6 C 09/07/24 15:46 Temperature Source Oral 09/07/24 15:46 Pulse 63 09/07/24 15:46 Respiratory Rate 12 09/07/24 15:46 Respiratory Effort Normal, Non-Labored 09/07/24 15:50 Blood Pressure 151/68 H 09/07/24 15:46 Blood Pressure Position Sitting 09/07/24 15:46 Pulse Oximetry 98 09/07/24 15:46 Oxygen Delivery Method Room Air 09/07/24 15:46 Oxygen Flow Rate 0 09/07/24 15:46 Pain Level 3 09/07/24 15:46 Medical Decision Making This dictation utilizes [id number] dictation software and may contain unedited grammatical errors. 59 year-old female presents to ED today by POV/ambulating with a chief complaint of L wrist pain- helping her with a fence post last week, he accidentally struck her wrist with a sledge hammer. Quality described as decreased ROM, no radiation to swelling, bruising, numbness/tingling, proximal forearm pain. Severity is described as moderate. Palliating factors include nothing specific- has been bracing it herself. Provoking factors include movement. Patient is R-hand dominant. Patients' medical history: Noncontributory. Family and social history: Noncontributory. Pertinent exam findings / vital signs include mild tenderness to the left anatomical snuffbox, left radial pulse 2+, full range of motion in the hand, insurance claims examiner strength 5/5, no ecchymosis or crepitus, no proximal forearm pain, able to supinate pronate. Differential / pathologies of concern include sprain/strain, fracture. Diagnostic studies of: -XR L wrist-no acute fracture seen. Interventions of: -None-patient has their own brace. ED Course/Assessment/Plan: 59-year-old female presents with left wrist pain after being accidentally struck with a hammer while helping her set a fence post last week, she has brace at all we can perform RICE therapy, there is no fracture she does have slightly reduced range of motion subjectively but there is no sign of trauma at this time and x-rays negative, I counseled her on following up with orthopedics for any persistent pain lasting longer than 2 more weeks. Findings not consistent with fracture, neurovascular compromise. Disposition of sprain of left wrist. Patient verbalized understanding of the plan and return to ED criteria and engaged in shared decision making. Medical Records Medical records reviewed: Yes I reviewed the patient's medical records. Imaging Data Radiologic Study: Attestation: I personally reviewed and interpreted this imaging study as follows: Imaging: X-Ray Radiologist's impression: EXAM: XR WRIST LT COMP NAVICULAR CLINICAL HISTORY: L wrist injury; last week- hit with hammer. TECHNIQUE: 2D digital imaging was performed. Three views. COMPARISON: No exams were available for comparison FINDINGS: BONES: No acute fracture is present. Ulnar styloid suboptimally profiled. No bony destructive lesion is seen. JOINTS: The carpal bones are normally aligned. Degenerative changes scaphoid trapezium trapezoid joints. SOFT TISSUE: Normal. IMPRESSION: No acute abnormality. Quality:SDOH Health Related Social Needs: No Data to Display PFSH All Active Problems (Updated 09/07/24 @ 17:29 by NABEEL Wells) Sprain of left wrist (Acute) Osteopenia (Acute) Medical History (Updated 09/07/24 @ 17:29 by NABEEL Wells) Underweight Laceration Surgical History (Updated 04/27/24 @ 08:40 by Lexie Ray) Hx of colonoscopy (~04/2024) H/O varicose vein procedure S/P tonsillectomy History of bladder suspension procedure Family History (Updated 02/06/24 @ 14:42 by Simona Bergeron) Mother Breast cancer Father Dementia Stroke Maternal Grandfather Diabetes Social History (Updated 02/13/24 @ 11:19 by Adrienne Wesley) Smoking/Tobacco Use Status: Never Second Hand Exposure: No Smoking risk assessment performed?: Yes Alcohol Intake: never Drug use: Never Substance use type: does not use Adopted: No Caregiver/Support person: No Foster care: No Housing: house Number of Children: 4 number of grandchildren: 1 Communication Needs: None Education Level: high school 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 Current gender identity: female What is your relationship status?: How often do you talk on the phone with friends or family?: three or more times per week How often do you get together with friends or relatives?: three or more times per week How often do you attend rastafari or quaker services?: 4 or more times per year Do you belong to any clubs or organized social groups?: no Panel score (0-1 are the most socially isolated patients): 3 What type of physical activity do you participate in: walking, regular exercise and swimming Duration: 60-90 minutes/day Frequency: 5-6 times per week Nina/Yarsani: Mormon Special nina needs: No Seatbelt use: always Helmet use: Yes Helmet use: always Drive intox or ride w/intox bellman driver: No Do you feel safe at home: Yes Do you feel safe in your relationship?: Yes Victim of physical abuse: No Victim of emotional abuse: No Victim of sexual abuse: No
== END 2024-09-07 17:40 | disposition home or self-care (01) ==
PROVIDERS: Emergency Provider Physician Assistant; PCP Nurse Practitioner Family
DX: S63.502A Unspecified sprain of left wrist, initial encounter (principal); W22.8XXA Striking against or struck by other objects, initial encounter; Y93.A3 Activity, aerobic and step exercise; Y92.89 Other specified places as the place of occurrence of the external cause
CPT/HCPCS: 99283; 73110

== ENCOUNTER 2025-03-10 01:47 | Outpatient (CLI) | payer BC, SELFPAY ==
[2025-03-10 12:41] LABS: Hemoglobin A1C 5.5 % (<5.7)
[2025-03-10 13:03] LABS: ALT 22 U/L (14-59); AST 21 U/L (15-37); Alkaline Phosphatase 89 U/L (46-116); Anion Gap 7.2 mmol/L (3-11); BUN 11 mg/dL (7-18); Bilirubin, Total 0.4 mg/dL (0.2-1.0); CO2 29.8 mmol/L (21.0-32.0); CREATININE 0.6 mg/dL (0.55-1.02); Calcium 8.9 mg/dL (8.5-10.1); Calculated LDL 33 mg/dL (<100); Chloride 106 mmol/L (98-107); Cholesterol 128 mg/dL (<200); Estimated GFR 103.33 (mL/min/1.73m2); Glucose 83 mg/dL (74-106); HDL Cholesterol 89 mg/dL (>or=50); Potassium 3.6 mmol/L (3.5-5.1); Sodium 143 mmol/L (136-145); TSH (W/Ref FT4) 1.53 uIU/mL (0.36-3.74); Total Protein 7.4 g/dL (6.4-8.2); Triglyceride 31 mg/dL (<150); Vitamin D 25 Total 61 ng/mL (30-100)
[2025-03-10 13:34] LABS: Iron 92 ug/dL (50-170); Total Iron Binding Capacity 275 ug/dL (250-450); Transferrin Sat 33 % (15-50)
== END 2025-03-10 01:48 | disposition home or self-care (01) ==
LOC: LOS 01:48
PROVIDERS: PCP Nurse Practitioner Family; Visit Provider Nurse Practitioner Family
DX: Z00.00 Encounter for general adult medical examination without abnormal findings (principal); M85.80 Other specified disorders of bone density and structure, unspecified site; R73.09 Other abnormal glucose; E55.9 Vitamin D deficiency, unspecified; R53.83 Other fatigue
CPT/HCPCS: 36415; 80053; 80061; 82306; 83036; 83540; 83550; 84443

== ENCOUNTER 2025-07-27 03:28 | Outpatient (CLI) | payer BC, SELFPAY ==
--- NOTE | 2025-07-27 05:30 | DI.MAMMO_ITS ---
Exam(s) MAMMO SCREENING EXAM: MAMMO SCREENING CLINICAL HISTORY: screening,z12.39 TECHNIQUE: Bilateral full field digital CC and MLO mammographic images were obtained with 3D tomosynthesis and utilizing computer aided detection (CAD). COMPARISON: Comparison is made with prior examinations. FINDINGS: Masses/Architectural Distortion: No suspicious masses or areas of architectural distortion are present. Microcalcifications: No suspicious pleomorphic-type are seen. There are stable bilateral calcifications seen in both breasts. Skin Thickening/Nipple Retraction: None. IMPRESSION: 1. No significant interval change with no specific features of malignancy noted. 2. Unless there is more urgent need, screening mammography is recommended, as per [place] [employer] guidelines. BI-RADS Category 2 - Benign Findings Breast Density - Category C - The breast are heterogeneously dense, which may obscure small masses. Breast density Category C or D implies that the patient has dense breast tissue. Dense breast tissue can make it harder to find cancer on a mammogram. Dense breast tissue is also associated with an increased risk of breast cancer. This information about the result of the mammogram report was provided to the patient to raise their awareness. Use this report when you speak with the patient about their risks for breast cancer, which includes their family history. At that time, you may recommend additional screening tests (Ultrasound or MRI) as these tests may add significant information. A negative radiographic report should not delay biopsy if a dominant or clinically suspicious mass is present. Up to ten percent of cancers are not identified on mammography. A negative report may reinforce clinical impression. Adenosis and dense breasts may obscure an underlying neoplasm. False positive reports average 6 to 10%. Patient will receive a letter notifying them of these results.
== END 2025-07-27 03:48 ==
LOC: DI 03:29
PROVIDERS: PCP Nurse Practitioner Family; Visit Provider Nurse Practitioner Family
DX: Z12.31 Encounter for screening mammogram for malignant neoplasm of breast (principal)
CPT/HCPCS: 77063; 77067

== ENCOUNTER 2025-08-04 18:50 | Outpatient (REF) | payer BC, SELFPAY ==
--- NOTE | 2025-08-04 19:00 | DI.RAD_ITS ---
Exam(s) XR WRIST RT COMPLETE EXAM: XR WRIST RT COMPLETE CLINICAL HISTORY: eval pathology, Pain in right wrist M25.531. TECHNIQUE: 2D digital imaging was performed. COMPARISON: CR XR WRIST LT COMP NAVICULAR from 09/07/2024 FINDINGS: 3 views There is no evidence of acute fracture nor carpal dislocation nor significant ulnar variance. The scaphoid and scapholunate distance are normal. There are few calcifications on the medial aspect wrist adjacent to and lateral to the ulnar styloid. These do not have an obvious acute appearance. However, there is overlying soft tissue swelling in the region of the ulnar styloid. No significant osseous lesions. Bone density normal. IMPRESSION: There is soft tissue swelling over the medial aspect of the wrist over the distal ulna-ulnar styloid. Possible non calcified soft tissue mass at this level. There are nonacute appearing calcific densities adjacent to the distal ulna and ulnar styloid which may be related to nonacute injuries. Correlation with past trauma history recommend. There are no prior right wrist images in our PACS DATA REPOSITORY: RADIATION DOSE DELIVERED:
--- NOTE | 2025-08-04 19:23 | DI.VRAD_ITS ---
PROCEDURE INFORMATION: Exam: XR Right Wrist Exam date and time: 08/04/2025 19:00 Age: 60 years old Clinical indication: Eval pathology, pain in right wrist. Ulnar aspect - ? bursitis TECHNIQUE: Imaging protocol: Radiologic exam of the right wrist. Views: 3 or more views. COMPARISON: No relevant prior studies available. FINDINGS: Bones/joints: Chronic mild deformity of the ulnar styloid. Adjacent small chronic avulsion fractures and or chondrocalcinosis. No acute fracture or subluxation. Soft tissues: Soft tissue swelling is most pronounced dorsally and medially. IMPRESSION: No acute bony pathology. Dictated and Authenticated by: Andreia Esquivel MD. Orderin Stacey Puente MD
== END 2025-08-04 19:10 ==
LOC: DI 18:50
PROVIDERS: PCP Nurse Practitioner Family; Visit Provider Nurse Practitioner Family
DX: M25.531 Pain in right wrist (principal); R22.31 Localized swelling, mass and lump, right upper limb
CPT/HCPCS: 73110